=== PATIENT | female | born 1970 | race Hispanic/Latino ===

== ENCOUNTER 2019-02-09 10:50 | Emergency (ER) | payer OTHER, SELFPAY ==
--- NOTE | 2019-02-09 11:50 | RAD REPORT ---
EXAM DESCRIPTION: US - Extremity Venous Uni Ltd - 02/09/2019 11:44 am CLINICAL HISTORY: Left leg pain and swelling COMPARISON: None. TECHNIQUE: Real-time sonographic evaluation of the left lower extremity deep venous system was perfo rmed. FINDINGS: Normal compressibility, flow augmentation, phasic flow and spontaneous flow are identified in the left lower extremity common femoral, superficial femoral, popliteal and posterior tibial vein s. No intraluminal filling defects seen. IMPRESSION: No DVT in the left lower extremity.
--- NOTE | 2019-02-09 12:16 | EDPHYS ---
Physician Documentation [facility] Name: Ngozi Silverman Age: 48 yrs Sex: Female : 1970 Arrival Date: 02/09/2019 Time: 10:54 Bed 20 Private MD: None, None ED Physician Theodore Willard HPI: 02/09 12:09 This 48 yrs old Female presents to ER via Ambulatory with complaints of Leg gs Swelling. 12:09 The patient presents with pain, swelling. The complaints affect the left harrison and gs anterior aspect of left ankle. Onset: The symptoms/episode began/occurred 2 week(s) ago, and became worse and became persistent. Modifying factors: the symptoms are aggravated by movement. Associated signs and symptoms: Pertinent positives: calf tenderness, Pertinent negatives fever, vomiting. Severity of symptoms: At their worst the symptoms were moderate, in the emergency department the symptoms are unchanged. The patient has not experienced similar symptoms in the past. 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 - Social history:: Smoking status: . - Ebola Screening: : Patient denies travel to an Ebola-affected area in the 21 days before illness onset. ROS: 12:09 All other systems are negative. gs Exam: 12:09 Head/Face: Normocephalic, atraumatic. Eyes: Pupils equal round and reactive to light, gs extra-ocular motions intact. Lids and lashes normal. Conjunctiva and sclera are non-icteric and not injected. Cornea within normal limits. Periorbital areas with no swelling, redness, or edema. ENT: Nares patent. No nasal discharge, no septal abnormalities noted. Tympanic membranes are normal and external auditory canals are clear. Oropharynx with no redness, swelling, or masses, exudates, or evidence of obstruction, uvula midline. Mucous membranes moist. Neck: Trachea midline, no thyromegaly or masses palpated, and no cervical lymphadenopathy. Supple, full range of motion without nuchal rigidity, or vertebral point tenderness. No Meningismus. Chest/axilla: Normal chest wall appearance and motion. Nontender with no deformity. No lesions are appreciated. Cardiovascular: Regular rate and rhythm with a normal S1 and S2. No gallops, murmurs, or rubs. Normal PMI, no JVD. No pulse deficits. Respiratory: Lungs have equal breath sounds bilaterally, clear to auscultation and percussion. No rales, rhonchi or wheezes noted. No increased work of breathing, no retractions or nasal flaring. Abdomen/GI: Soft, non-tender, with normal bowel sounds. No distension or tympany. No guarding or rebound. No evidence of tenderness throughout. Back: No spinal tenderness. No costovertebral tenderness. Full range of motion. Neuro: Awake and alert, GCS 15, oriented to person, place, time, and situation. Cranial nerves II-XII grossly intact. Motor strength 5/5 in all extremities. Sensory grossly intact. Cerebellar exam normal. Normal gait. 12:09 Constitutional: The patient appears alert, awake. 12:09 Musculoskeletal/extremity: Pulses: are normal with no appreciated deficits, Edema, 2+ to the left midcalf and left ankle is noted, Sensation intact. 12:09 Skin: Appearance: Color: erythematous. Vital Signs: 11:12 BP 167 / 111; Pulse 87; Resp 17; Pulse Ox 98% on R/A; tw2 11:17 Temp 98.0(O); tw2 11:17 BP 145 / 99; Pulse 80; Resp 16; Pulse Ox 100% ; Weight 103.42 kg; Height 5 ft. 3 in. iw (160.02 cm); Pain 8/10; 12:03 BP 149 / 103; Pulse 89; Resp 17; Pulse Ox 98% on R/A; tw2 11:17 Body Mass Index 40.39 (103.42 kg, 160.02 cm) iw MDM: 11:15 Patient medically screened. gs 12:09 Differential diagnosis: cellulitis,dvt,vasculitis. Data reviewed: vital signs, nurses gs notes. Counseling: I had a detailed discussion with the patient and/or guardian regarding: the historical points, exam findings, and any diagnostic results supporting the discharge/admit diagnosis, radiology results, the need for outpatient follow up. Response to treatment: There is no appreciated change of the patient's symptoms at this time. 02/09 11:15 Order name: US Extremity Venous Unilateral Ltd; Complete Time: 12:09 Administered Medications: No medications were administered Disposition: 02/09/19 12:14 Discharged to Home. Impression: Cellulitis of left lower limb - leg. - Condition is Stable. - Discharge Instructions: Cellulitis, Adult. - Prescriptions for Keflex 500 mg Oral Capsule - take 1 capsule by ORAL route every 12 hours for 10 days; 20 capsule. Prednisone 20 mg Oral Tablet - take 1 tablet by ORAL route once daily for 5 days; 5 tablet. - Work release form, Medication Reconciliation Form, Thank You Letter, Antibiotic Education, Prescription Opioid Use form. - Follow up: Private Physician; When: 2 - 3 days; Reason: Re-evaluation by your physician. Signatures: Dispatcher [employer] Melyssa Toledo RN RN Jeannine Perdue RN RN [facility] Theodore Willard MD MD Corrections: (The following items were deleted from the chart) 12:03 11:23 Home Meds: Lisinopril Oral; [facility] 12:03 11:23 Home Meds: amlodipine oral; [facility] 12:03 11:23 Home Meds: cetirizine oral oral; [facility] 12:26 12:14 02/09/2019 12:14 Discharged to Home. Impression: Cellulitis of left lower limb - tw2 leg. Condition is Stable. Forms are Medication Reconciliation Form, Thank You Letter, Antibiotic Education, Prescription Opioid Use. Follow up: Private Physician; When: 2 - 3 days; Reason: Re-evaluation by your physician. gs
--- NOTE | 2019-02-09 12:16 | ER ---
Nurse's Notes [facility] Name: Ngozi Silverman Age: 48 yrs Sex: Female : 1970 Arrival Date: 02/09/2019 Time: 10:54 Bed 20 Private MD: None, None Diagnosis: Cellulitis of left lower limb-leg Presentation: 02/09 11:09 Presenting complaint: Patient states: left leg swelling X1 month, worse over past 1-2 iw weeks. Transition of care: patient was not received from another setting of care. Onset of symptoms was December 2018. Risk Assessment: Do you want to hurt yourself or someone else? Patient reports no desire to harm self or others. Initial Sepsis Screen: Does the patient meet any 2 criteria? No. Patient's initial sepsis screen is negative. Does the patient have a suspected source of infection? No. Patient's initial sepsis screen is negative. Care prior to arrival: None. 11:09 Method Of Arrival: Ambulatory iw 11:09 Acuity: YOLI 3 iw Triage Assessment: 11:13 General: Appears in no apparent distress. obese, well groomed, Behavior is calm, tw2 cooperative, appropriate for age. Pain: Denies pain. 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 - Social history:: Smoking status: . - Ebola Screening: : Patient denies travel to an Ebola-affected area in the 21 days before illness onset. Screenin:13 Abuse screen: Denies threats or abuse. Nutritional screening: No deficits noted. tw2 Tuberculosis screening: No symptoms or risk factors identified. Fall Risk None identified. Assessment: 11:19 General: Appears in no apparent distress. obese, well groomed, Behavior is calm, tw2 cooperative, appropriate for age. Pain: Complains of pain in left leg. Neuro: Level of Consciousness is awake, alert, obeys commands, Oriented to person, place, time, situation. Cardiovascular: Heart tones S1 S2 Patient's skin is warm and dry. Respiratory: Airway is patent Respiratory effort is even, unlabored, Respiratory pattern is regular, symmetrical, Breath sounds are clear bilaterally. GI: No signs and/or symptoms were reported involving the gastrointestinal system. Abdomen is round non-distended, obese, Bowel sounds present X 4 quads. : No signs and/or symptoms were reported regarding the genitourinary system. EENT: No signs and/or symptoms were reported regarding the EENT system. Derm: redness and swelling noted to left LE. Musculoskeletal: Circulation, motion, and sensation intact. Range of motion: intact in all extremities. 12:03 Reassessment: Patient appears in no apparent distress at this time. No changes from tw2 previously documented assessment. Patient and/or family updated on plan of care and expected duration. Pain level reassessed. Patient is alert, oriented x 3, equal unlabored respirations, skin warm/dry/pink. 12:25 Reassessment: Patient appears in no apparent distress at this time. No changes from tw2 previously documented assessment. Patient and/or family updated on plan of care and expected duration. Pain level reassessed. Patient is alert, oriented x 3, equal unlabored respirations, skin warm/dry/pink. Vital Signs: 11:12 BP 167 / 111; Pulse 87; Resp 17; Pulse Ox 98% on R/A; tw2 11:17 Temp 98.0(O); tw2 11:17 BP 145 / 99; Pulse 80; Resp 16; Pulse Ox 100% ; Weight 103.42 kg; Height 5 ft. 3 in. iw (160.02 cm); Pain 8/10; 12:03 BP 149 / 103; Pulse 89; Resp 17; Pulse Ox 98% on R/A; tw2 11:17 Body Mass Index 40.39 (103.42 kg, 160.02 cm) iw ED Course: 10:54 Patient arrived in ED. mr 10:54 None, None is Private Physician. mr 11:05 Theodore Willard MD is Attending Physician. gs 11:05 Bed in low position. Call light in reach. Pulse ox on. NIBP on. tw2 11:10 Triage completed. iw 11:12 Jeannine Perdue, RN is Primary Nurse. tw2 11:12 Arm band placed on. tw2 11:45 US Extremity Venous Unilateral Ltd In Process Unspecified. EDMS 12:25 No provider procedures requiring assistance completed. Patient did not have IV access tw2 during this emergency room visit. Administered Medications: No medications were administered Outcome: 12:14 Discharge ordered by . gs 12:25 Discharged to home ambulatory. tw2 12:25 Condition: stable 12:25 Discharge instructions given to patient, Instructed on discharge instructions, follow up and referral plans. medication usage, Demonstrated understanding of instructions, follow-up care, medications, Prescriptions given X 2. 12:26 Patient left the ED. tw2 Signatures: Dispatcher [employer] EDDE Grace Serrano Irene RN RN Jeannine Perdue, RN RN tw2 Theodore Willard MD MD Corrections: (The following items were deleted from the chart) 11:23 11:17 BP 145 / 99; Pulse 80bpm; tw2 iw 12:03 11:23 Home Meds: Lisinopril Oral; tw 12:03 11:23 Home Meds: amlodipine oral; iw tw 12:03 11:23 Home Meds: cetirizine oral oral; tw2
== END 2019-02-09 12:26 | disposition home or self-care (01) ==
LOC: ER 10:50
DX: L03.116 Cellulitis of left lower limb (principal); I10 Essential (primary) hypertension; K75.4 Autoimmune hepatitis
CPT/HCPCS: 93971; 99283

== ENCOUNTER 2019-05-18 23:01 | Emergency (ER) | payer SELFPAY ==
--- OUTSIDE RECORDS SUMMARY | 2019-05-18 23:02 | XMS REPORT ---
:1970 [facility] Address [address] [place] [address] Dr. Brown [address] [place] [id number] Care Team Providers Name Role Phone Unavailable Unavailable Unavailable Problems This patient has no known problems. Allergies, Adverse Reactions, Alerts This patient has no known allergies or adverse reactions. Medications This patient has no known medications.
[2019-05-18] MEDS ORDERED: FUROSEMIDE 40 MG/4 ML VIAL ONE (23:39)
[2019-05-18] MEDS ORDERED: LABETALOL 20 MG/4ML SYRINGE IV ONE (23:39)
[2019-05-19 00:04] LABS: Absolute Lymphocytes (CBC) 2.4 K/uL (0.7-4.9); Basophils % 1.1 % (0-1.3); Hematocrit 33.8 % (36.0-45.0); Lymphocytes % 30.7 % (15.3-44.8); MPV 9.3 fL (7.6-11.3); RBC Red Blood Cell Count 3.77 M/uL (3.86-4.86)
[2019-05-19 00:07] LABS: Potassium 3.2 mmol/L (3.5-5.1)
--- NOTE | 2019-05-19 00:26 | ER ---
Nurse's Notes [facility] Name: Ngozi Silverman Age: 49 yrs Sex: Female : 1970 Arrival Date: 05/18/2019 Time: 23:01 Bed 20 Private MD: Diagnosis: Uncontrolled hypertension. Non-compliance Presentation: 05/18 23:05 Presenting complaint: Patient states: States she has been feeling bad, checks BP daily lp1 and was high at home; Has been out of meds for 2-3 weeks due to finances; States supposed to be taking Amlodipine and Lisinopril; swelling to feet for about 3 months. Transition of care: patient was not received from another setting of care. Onset of symptoms was May 18, 2019. Risk Assessment: Do you want to hurt yourself or someone else? Patient reports no desire to harm self or others. Initial Sepsis Screen: Does the patient meet any 2 criteria? No. Patient's initial sepsis screen is negative. Does the patient have a suspected source of infection? No. Patient's initial sepsis screen is negative. Care prior to arrival: None. 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 - Social history:: Smoking status: Patient/guardian denies using tobacco. - Ebola Screening: : No symptoms or risks identified at this time. Screenin:10 Abuse screen: Denies threats or abuse. Denies injuries from another. Nutritional lp1 screening: No deficits noted. Tuberculosis screening: No symptoms or risk factors identified. 23:30 Fall Risk None identified. wh Assessment: 23:30 General: Appears in no apparent distress. Behavior is calm, cooperative, appropriate wh for age. Pain: Denies pain. Neuro: Level of Consciousness is awake, alert, obeys commands, Oriented to person, place, time, situation, Appropriate for age. Cardiovascular: Heart tones S1 S2 Edema is 2+ to left ankle and right ankle. Respiratory: Airway is patent Respiratory effort is even, unlabored, Respiratory pattern is regular, symmetrical, Breath sounds are clear bilaterally. GI: Abdomen is flat, non-distended. : No signs and/or symptoms were reported regarding the genitourinary system. EENT: No signs and/or symptoms were reported regarding the EENT system. Derm: Skin is intact, is healthy with good turgor, Skin is pink, warm \T\ dry. normal. Musculoskeletal: Circulation, motion, and sensation intact. 05/19 00:45 Reassessment: Patient appears in no apparent distress at this time. No changes from previously documented assessment. Patient and/or family updated on plan of care and expected duration. Pain level reassessed. Patient is alert, oriented x 3, equal unlabored respirations, skin warm/dry/pink. Patient denies pain at this time. Vital Signs: 05/18 23:08 BP 180 / 119; Pulse 91; Resp 20; Temp 99(O); Pulse Ox 99% on R/A; Weight 117.93 kg; lp1 Height 5 ft. 3 in. (160.02 cm); Pain 8/10; 23:45 BP 164 / 120; Pulse 88; Resp 18; Pulse Ox 97% on R/A; 05/19 00:45 BP 146 / 99; Pulse 78; Resp 18; Pulse Ox 99% on R/A; 05/18 23:08 Body Mass Index 46.06 (117.93 kg, 160.02 cm) lp1 ED Course: 05/18 23:01 Patient arrived in ED. cl3 23:06 Triage completed. lp1 23:06 Arm band placed on. lp1 23:11 Tyrese Salvador MD is Attending Physician. pkl 23:24 Sharita Tripp is Primary Nurse. 23:30 Patient has correct armband on for positive identification. Placed in gown. Bed in low wh position. Call light in reach. Side rails up X 1. Pulse ox on. NIBP on. 23:40 Inserted saline lock: 20 gauge in right antecubital area, using aseptic technique. Blood collected. 23:43 XRAY CXR (1 view) In Process Unspecified. EDMS 05/19 00:46 No provider procedures requiring assistance completed. IV discontinued, intact, bleeding controlled, No redness/swelling at site. Administered Medications: 05/18 23:45 Drug: Trandate 20 mg Route: IVP; Site: right antecubital; 05/19 00:47 Follow up: Response: No adverse reaction; Blood pressure is lowered 05/18 23:50 Drug: Lasix 80 mg Route: IVP; Site: right antecubital; 05/19 00:47 Follow up: Response: No adverse reaction 00:32 Drug: K-Dur 40 mEq Route: PO; 00:46 Follow up: Response: No adverse reaction Output: 00:45 Urine: 700ml (Voided); Total: 700ml. Outcome: 00:25 Discharge ordered by . pkreyna 00:46 Discharged to home ambulatory, with family. 00:46 Condition: stable 00:46 Discharge instructions given to patient, family, Instructed on discharge instructions, follow up and referral plans. medication usage, POC HTN Demonstrated understanding of instructions, follow-up care, medications, POC Prescriptions given X 2. 00:47 Patient left the ED. Signatures: Dispatcher [employer] EDMS Tyrese Salvador MD MD pkl Pena, Laura, RN RN lp1 Qasim, Sharita George Guzman cl3 Corrections: (The following items were deleted from the chart) 05/18 23:06 23:05 Presenting complaint: Patient states: States she has been feeling bad, checks BP lp1 daily and was high at home; Has been out of meds for 2-3 weeks due to finances; States supposed to be taking Amlodipine and Lisinopril lp1
--- NOTE | 2019-05-19 00:26 | EDPHYS ---
Physician Documentation [facility] Name: Ngozi Silverman Age: 49 yrs Sex: Female : 1970 Arrival Date: 05/18/2019 Time: 23:01 Bed 20 Private MD: ED Physician Tyrese Salvador HPI: 05/18 23:39 This 49 yrs old Female presents to ER via Ambulatory with complaints of High pkl Blood Pressure. 23:39 Onset: The symptoms/episode began/occurred 3 week(s) ago. Out of medications for 3 pkl weeks. 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 - Social history:: Smoking status: Patient/guardian denies using tobacco. - Ebola Screening: : No symptoms or risks identified at this time. ROS: 23:39 Eyes: Negative for injury, pain, redness, and discharge, ENT: Negative for injury, pkl pain, and discharge, Neck: Negative for injury, pain, and swelling, Cardiovascular: Negative for chest pain, palpitations, and edema, Respiratory: Negative for shortness of breath, cough, wheezing, and pleuritic chest pain, Abdomen/GI: Negative for abdominal pain, nausea, vomiting, diarrhea, and constipation, Back: Negative for injury and pain, : Negative for injury, bleeding, discharge, and swelling, Skin: Negative for injury, rash, and discoloration. 23:39 MS/extremity: Positive for swelling, of the both legs. 23:39 Skin: Negative for acute changes. 23:39 Neuro: Negative for altered mental status. Exam: 23:39 Head/Face: Normocephalic, atraumatic. Eyes: Pupils equal round and reactive to light, pkl extra-ocular motions intact. Lids and lashes normal. Conjunctiva and sclera are non-icteric and not injected. Cornea within normal limits. Periorbital areas with no swelling, redness, or edema. ENT: Nares patent. No nasal discharge, no septal abnormalities noted. Tympanic membranes are normal and external auditory canals are clear. Oropharynx with no redness, swelling, or masses, exudates, or evidence of obstruction, uvula midline. Mucous membranes moist. Neck: Trachea midline, no thyromegaly or masses palpated, and no cervical lymphadenopathy. Supple, full range of motion without nuchal rigidity, or vertebral point tenderness. No Meningismus. Chest/axilla: Normal chest wall appearance and motion. Nontender with no deformity. No lesions are appreciated. Cardiovascular: Regular rate and rhythm with a normal S1 and S2. No gallops, murmurs, or rubs. Normal PMI, no JVD. No pulse deficits. Respiratory: Lungs have equal breath sounds bilaterally, clear to auscultation and percussion. No rales, rhonchi or wheezes noted. No increased work of breathing, no retractions or nasal flaring. Abdomen/GI: Soft, non-tender, with normal bowel sounds. No distension or tympany. No guarding or rebound. No evidence of tenderness throughout. Back: No spinal tenderness. No costovertebral tenderness. Full range of motion. Skin: Warm, dry with normal turgor. Normal color with no rashes, no lesions, and no evidence of cellulitis. Neuro: Awake and alert, GCS 15, oriented to person, place, time, and situation. Cranial nerves II-XII grossly intact. Motor strength 5/5 in all extremities. Sensory grossly intact. Cerebellar exam normal. Normal gait. 23:39 Musculoskeletal/extremity: Extremities: grossly normal except: noted in the both legs: Vital Signs: 23:08 BP 180 / 119; Pulse 91; Resp 20; Temp 99(O); Pulse Ox 99% on R/A; Weight 117.93 kg; lp1 Height 5 ft. 3 in. (160.02 cm); Pain 8/10; 23:45 BP 164 / 120; Pulse 88; Resp 18; Pulse Ox 97% on R/A; wh 05/19 00:45 BP 146 / 99; Pulse 78; Resp 18; Pulse Ox 99% on R/A; wh 05/18 23:08 Body Mass Index 46.06 (117.93 kg, 160.02 cm) lp1 MDM: 05/18 23:11 Patient medically screened. pkl 05/19 00:22 Data reviewed: vital signs, nurses notes, lab test result(s), radiologic studies, plain pkl films. 05/18 23:21 Order name: CBC with Diff; Complete Time: 00:19 pkl 05/18 23:21 Order name: Chem 7; Complete Time: 00:19 pkl 05/18 23:21 Order name: XRAY CXR (1 view) pk 05/18 23:21 Order name: Saline Lock; Complete Time: 23:46 pkl Administered Medications: 05/18 23:45 Drug: Trandate 20 mg Route: IVP; Site: right antecubital; 05/19 00:47 Follow up: Response: No adverse reaction; Blood pressure is lowered 05/18 23:50 Drug: Lasix 80 mg Route: IVP; Site: right antecubital; 05/19 00:47 Follow up: Response: No adverse reaction 00:32 Drug: K-Dur 40 mEq Route: PO; 00:46 Follow up: Response: No adverse reaction Disposition: 05/19/19 00:25 Discharged to Home. Impression: Uncontrolled hypertension. Non-compliance. - Condition is Stable. - Prescriptions for Lisinopril- Hydrochlorothiazide 20-25 mg Oral Tablet - take 1 tablet by ORAL route once daily; 30 tablet. Carvedilol 12.5 mg Oral Tablet - take 1 tablet by ORAL route 2 times per day with food; 60 tablet. - Medication Reconciliation Form, Thank You Letter, Antibiotic Education, Prescription Opioid Use form. - Follow up: Private Physician; When: 1 week; Reason: Re-evaluation by your physician. - Problem is new. - Symptoms have improved. Signatures: Dispatcher [employer] EDMS Tyrese Salvador MD MD l Merry Bauer RN RN lp1 Sharita Tripp Corrections: (The following items were deleted from the chart) 00:47 00:25 05/19/2019 00:25 Discharged to Home. Impression: Uncontrolled hypertension. wh Non-compliance. Condition is Stable. Forms are Medication Reconciliation Form, Thank You Letter, Antibiotic Education, Prescription Opioid Use. Follow up: Private Physician; When: 1 week; Reason: Re-evaluation by your physician. Problem is new. Symptoms have improved. pkl
[2019-05-19] MEDS ORDERED: POTASSIUM 25 MEQ EFFERV TAB ONE (00:28)
[2019-05-19] MEDS ORDERED: POTASSIUM CL SA 10 MEQ TAB PO ONE (00:29)
[2019-05-19 02:51] VITALS: TEMP 99
[2019-05-19 02:53] VITALS: BP 146/99; O2SAT 99
--- NOTE | 2019-05-19 07:52 | RAD REPORT ---
EXAM DESCRIPTION: Kan Single View05/18/2019 11:42 pm CLINICAL HISTORY: Hypertension COMPARISON: none FINDINGS: The lungs appear clear of acute infiltrate. The heart is normal size IMPRESSION: No acute abnormalities displayed
== END 2019-05-19 00:47 | disposition home or self-care (01) ==
LOC: ER 23:01
DX: I10 Essential (primary) hypertension (principal); Z91.19 Patient's noncompliance with other medical treatment and regimen
CPT/HCPCS: 36415; 71045; 80048; 85025; 96374; 96375; 99284; J1940

== ENCOUNTER 2021-12-06 22:25 | Emergency (ER) | payer OTHER ==
--- OUTSIDE RECORDS SUMMARY | 2021-12-06 22:30 | XMS REPORT | Continuity of Care Document ---
:1970 Author Organization [facility] t Address [facility] [place] [address] Care Team Providers Name Role Phone Brie Sanchez NP Primary Care Physician Laura Attending Clinician Unavailable CHERYL MC Attending Clinician Unavailable CHERYL MC Attending Clinician Unavailable Jose Carlos TALLEY Attending Clinician Unavailable Visit, Nurse Attending Clinician Unavailable Zhao ARITA, N Attending Clinician Tamiko JHA Attending Clinician Unavailable Roly Cassidy DO Attending Clinician Eve CHURCHILL Attending Clinician Unavailable Biju Hanks Attending Clinician Biju REYNA Attending Clinician Unavailable Doctor Unassigned, Name Attending Clinician Unavailable Payers Payer Name Policy Type Policy Number Effective Date Expiration Date S ource OUT OF [facility] [id number] - [facility] [id number] [facility] [id number] 2021 00:00:00 [employer] ADV O [id number] 2020 EXCHANGE 00:00:00 Problems Condition Condition Condition Status Onset Resolution Last Treating Co mments Source Name Details Category Date Date Treatment Clinician Date Other Other Disease Active [facility] general general 9-17 ity of counseling counseling [place] and advice and advice 00 Me dical for for Branch contracept contracept jessica jessica management management Cervical Cervical Disease Active Overview: Un lady Papanicola Papanicola 03-09 Formattin ity of ou smear ou smear 00:00: g of this Kei as negative negative 00 note Medica l within within might be Branch last 12 last 12 different months months from the original. 2018 pap NIL neg HPV see note from 10/2018 with [facility] Morbid Morbid Disease Active Univers obesity obesity 9-17 ity of 00:00: [place] [facility] Hemorrhoid Hemorrhoid Disease Active U nivers s s 03-09 ity of 00:00: [place] [facility] Herpes Herpes Disease Active Univers simplex simplex 5-20 [place] of infection [place] 00[place] [facility] General General Disease Active [facility] counseling counseling 11-06 it y of for for 00:00: [place] prescripti prescripti 00 Me dical on of oral on of oral Br anch contracept contracept jinny jinny Vaginal Vaginal Disease Active Univers ulcer ulcer 5-17 ity of 00:00: [place] 00 [facility] 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 Uni vers of skull of skull 1-27 ity of 00:00: [place] [facility] Hyperlipid Hyperlipid Disease Active U cordelia emia emia 8-19 ity of 00:00: [place] [facility] Depression Depression Disease Active U cordelia 8-18 ity of 00:00: [place] [facility] Mild Mild Disease Active Univers intermitte intermitte 3-06 it y of nt asthma nt asthma 00:[place] Degenerati Degenerati Disease Active 2013-06 U nivuri on of on of 0-03 ity of interverte interverte 00:[place] bral disc, bral disc, 00 Me dical site site Branch unspecifie unspecifie d d 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 6-06 ity of 00:00: [place] 00 [facility] 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 5-06 ity of 00:00: [place] [facility] Fatty Fatty Disease Active Univers liver liver 5-06 ity of 00:00: [place] 00 [facility] HTN HTN Disease Active Univers (hypertens (hypertens 10-26 it y of ion) ion) 00:00: [place] [address] Medical Branch Morbid Morbid Disease Active Univers obesity obesity 10-26 ity of with BMI with BMI 00:00: [place] of of 00 Medical 40.0-44.9, 40.0-44.9, Br anch adult adult Need for Need for Disease Active Unive rs Tdap Tdap 10-26 ity of vaccinatio vaccinatio 00:00: [place] n [address] [place] [address] Branch Allergies, Adverse Reactions, Alerts Allergy Allergy Status Severity Reaction(s) Onset Inactive Treating Comm ents Source Name Type Date Date Clinician Predniso Propensi Active [facility] ne ty to 11-22 [facility] adverse 00:00: of reaction 00 Medicin s to e drug NO KNOWN Drug Active [facility] ALLERGIE Class ity of [facility] Social History Social Habit Start Date Stop Date Quantity Comments Source Exposure to Not sure [facility] SARS-CoV-2 [facility] [place] [facility] (event) Branch Alcohol intake 2021-05-15 2021-05-15 Current drinker [facility] of 00:00:00 00:00:00 of alcohol Medicine (finding) Tobacco use and 2020-11-22 2020-11-22 Smokeless tobacco [facility] of exposure 00:00:00 00:00:00 non-user Medicine Alcohol Comment 2018-11-06 2018-11-06 socially Universit y of 00:00:00 00:00:00 [facility] Sex [birth year] At [birth year] Universit y of 00:00:00 00:00:00 [facility] Smoking Status Start Date Stop Date Source Never smoker [facility] Medications Ordered Filled Start Stop Current Ordering Indication Dosage Frequency Signature Comments Components Source Medication Medication Date Date Medication? Clinician (SIG) Name Name PANTOPRAZOL 2020-06 Yes 40mg Take 40 mg [facility] E SODIUM OR 07-15 by mouth. Col lege 14:46: of 36 Medicin e Norgestim-E 2020-06 Yes Take by Patricio wilson Estrad 07-15 mouth. [place] Triphasic 14:46: of (ORTHO 36 Medicin TRI-CYCLEN e LO OR) LISINOPRIL- 2020-06 Yes Take by [facility] HYDROCHLORO 1-23 mouth. Colleg e THIAZIDE OR 14:44: of 15 Medicin e amlodipine Yes Take by Uni vers besylate 9-17 mouth. ity of (AMLODIPINE 15:52: [facility]) Medical Branch LISINOPRIL Yes Take by Uni vers ORAL 9-17 mouth. ity of 15:52: [place] [address] Medical Branch amlodipine Yes Take by Uni vers besylate 9-17 mouth. ity of (AMLODIPINE 15:52: [facility]) Medical Branch LISINOPRIL Yes Take by Uni vers ORAL 9-17 mouth. ity of 15:52: [place] [address] Medical Branch amlodipine Yes Take by Uni vers besylate 9-17 mouth. ity of (AMLODIPINE 15:52: [facility]) Medical Branch LISINOPRIL Yes Take by Uni vers ORAL 9-17 mouth. ity of 15:52: [place] [address] Medical Branch amlodipine Yes Take by Uni vers besylate 9-17 mouth. ity of (AMLODIPINE 15:52: [facility]) Medical Branch LISINOPRIL Yes Take by Uni vers ORAL 9-17 mouth. ity of 15:52: [place] [address] Medical Branch amlodipine Yes Take by Uni vers besylate 9-17 mouth. ity of (AMLODIPINE 15:52: [facility]) Medical Branch LISINOPRIL Yes Take by Uni vers ORAL 9-17 mouth. ity of 15:52: [place] [address] Medical Branch amlodipine Yes Take by Uni vers besylate 9-17 mouth. ity of (AMLODIPINE 15:52: [facility]) Medical Branch LISINOPRIL Yes Take by Uni vers ORAL 9-17 mouth. ity of 15:52: [place] [address] Medical Branch amlodipine Yes Take by Uni vers besylate 9-17 mouth. ity of (AMLODIPINE 15:52: [facility]) Medical Branch LISINOPRIL Yes Take by Uni vers ORAL 9-17 mouth. ity of 15:52: [place] [address] Medical Branch norethindro Yes [id number] 1{tbl} Take 1 Univers ne 0.35 mg 9-17 tablet by ity of tablet 00:00: mouth [place] 00 daily. Medical Branch benzocaine- 2020-0 Yes [id number] Apply to Univers menthol, 9-17 area(s) as ity o f DERMOPLAST, 00:00: needed for [place] (DERMOPLAST 00 Pain or Medic al , WITH Itching. Branch MENTHOL,) 20-0.5 % topical spray norethindro 2020-0 Yes [id number] 1{tbl} Take 1 Univers ne 0.35 mg 9-17 tablet by ity of tablet 00:00: mouth [place] 00 daily. Medical Branch benzocaine- 2020-0 Yes [id number] Apply to Univers menthol, 9-17 area(s) as ity o f DERMOPLAST, 00:00: needed for [place] (DERMOPLAST 00 Pain or Medic al , WITH Itching. Branch MENTHOL,) 20-0.5 % topical spray norethindro 2020-0 Yes [id number] 1{tbl} Take 1 Univers ne 0.35 mg 9-17 tablet by ity of tablet 00:00: mouth [place] 00 daily. Medical Branch benzocaine- 2020-0 Yes [id number] Apply to Univers menthol, 9-17 area(s) as ity o f DERMOPLAST, 00:00: needed for [place] (DERMOPLAST 00 Pain or Medic al , WITH Itching. Branch MENTHOL,) 20-0.5 % topical spray norethindro 2020-0 Yes [id number] 1{tbl} Take 1 Univers ne 0.35 mg 9-17 tablet by ity of tablet 00:00: mouth [place] 00 daily. Medical Branch benzocaine- 2020-0 Yes [id number] Apply to Univers menthol, 9-17 area(s) as ity o f DERMOPLAST, 00:00: needed for [place] (DERMOPLAST 00 Pain or Medic al , WITH Itching. Branch MENTHOL,) 20-0.5 % topical spray norethindro 2020-0 Yes [id number] 1{tbl} Take 1 Univers ne 0.35 mg 9-17 tablet by ity of tablet 00:00: mouth [place] 00 daily. Medical Branch benzocaine- 2020-0 Yes [id number] Apply to Univers menthol, 9-17 area(s) as ity o f DERMOPLAST, 00:00: needed for [place] (DERMOPLAST 00 Pain or Medic al , WITH Itching. Branch MENTHOL,) 20-0.5 % topical spray norethindro 2020-0 Yes [id number] 1{tbl} Take 1 Univers ne 0.35 mg 9-17 tablet by ity of tablet 00:00: mouth [place] 00 daily. Medical Branch benzocaine- 2020-0 [id number] [facility] area[facility] as ity o f DERMOPLAST, 00:00: needed for [place] (DERMOPLAST 00 Pain or Medic al , WITH Itching. Branch MENTHOL,) 20-0.5 % topical spray norethindro 2020-0 Yes [id number] 1{tbl} Take 1 Univers ne 0.35 mg 9-17 tablet by ity of tablet 00:00: mouth [place] 00 daily. Medical Branch benzocaine- 2020-0 Yes [id number] Apply to [facility], 9-17 area(s) as ity o f DERMOPLAST, 00:00: needed for [place] (DERMOPLAST 00 Pain or Medic al , WITH Itching. Branch MENTHOL,) 20-0.5 % topical spray LISINOPRIL 2018-06 Yes Take by Uni vers ORAL 0-21 mouth. ity of 21:36: [address] LISINOPRIL 2018-06 Yes Take by Uni vers ORAL 0-21 mouth. ity of 21:36: [address] LISINOPRIL 2018-06 Yes Take by Uni vers ORAL 0-21 mouth. ity of 21:36: [address] LISINOPRIL 2018-06 Yes Take by Uni vers ORAL 0-21 mouth. ity of 21:36: [address] LISINOPRIL 2018-06 Yes Take by Uni vers ORAL 0-21 mouth. ity of 21:36: [address] amlodipine 2018-06 Yes Take by Uni vers besylate 0-21 mouth. ity of (AMLODIPINE 21:35: [place] ORAL) [address] [place] [address] amlodipine 2018-06 Yes Take by Uni vers besylate 0-21 mouth. ity of (AMLODIPINE 21:35: [place] ORAL) [address] [place] [address] amlodipine 2018-06 Yes Take by Uni vers besylate 0-21 mouth. ity of (AMLODIPINE 21:35: [place] ORAL) [address] [place] [address] amlodipine 2018-06 Yes Take by Uni vers besylate 0-21 mouth. ity of (AMLODIPINE 21:35: [place] ORAL) 26 [facility] amlodipine 2018-06 Yes Take by Uni vers besylate 0-21 mouth. ity of (AMLODIPINE 21:35: [place] ORAL) [facility] [id number] .35mg Take 1 Univers ne 0.35 mg 0-21 tablet by ity of tablet 00:00: mouth [place] 00 daily. [facility] 2018-06 Yes [id number] .35mg Take 1 Univers ne 0.35 mg 0-21 tablet by ity of tablet 00:00: mouth [place] 00 daily. [facility] 2018-06 Yes [id number] .35mg Take 1 Univers ne 0.35 mg 0-21 tablet by ity of tablet 00:00: mouth [place] 00 daily. [facility] 2018-06 Yes [id number] .35mg Take 1 Univers ne 0.35 mg 0-21 tablet by ity of tablet 00:00: mouth [place] 00 daily. [facility] 2018-06 Yes [id number] .35mg Take 1 Univers ne 0.35 mg 0-21 tablet by ity of tablet 00:00: mouth [place] 00 daily. [facility] 2018-06 Yes [id number] .35mg Take 1 Univers ne 0.35 mg 0-21 tablet by ity of tablet 00:00: mouth [place] 00 daily. [facility] 2018-06 Yes [id number] .35mg Take 1 Univers ne 0.35 mg 0-21 tablet by ity of tablet 00:00: mouth [place] 00 daily. [facility] 2018-06 Yes [id number] .35mg Take 1 Univers ne 0.35 mg 0-21 tablet by ity of tablet 00:00: mouth [place] 00 daily. [facility] 2018-06 Yes [id number] .35mg Take 1 Univers ne 0.35 mg 0-21 tablet by ity of tablet 00:00: mouth [place] 00 daily. [facility] 2018-06 Yes [id number] .35mg Take 1 Univers ne 0.35 mg 0-21 tablet by ity of tablet 00:00: mouth [place] 00 daily. [facility] 2018-06 Yes [id number] .35mg Take 1 Univers ne 0.35 mg 0-21 tablet by ity of tablet 00:00: mouth daily. Medical Branch norethindro 2019-1 Yes [id number] .35mg Take 1 Univers ne 0.35 mg 0-21 tablet by ity of tablet 00:00: mouth daily. Medical Branch albuterol 2017-0 Yes 2{puff} Inhale 2 U nivers (PROVENTIL 8-18 Puffs. ity of HFA) 90 00:00: [place] mcg/actuati 00 Medical on inhaler Branch albuterol 2017-0 Yes 2{puff} Inhale 2 U nivers (PROVENTIL 8-18 Puffs. ity of HFA) 90 00:00: [place] mcg/actuati 00 Medical on inhaler Branch albuterol 2017-0 Yes 2{puff} Inhale 2 U nivers (PROVENTIL 8-18 Puffs. ity of HFA) 90 00:00: [place] mcg/actuati 00 Medical on inhaler Branch albuterol 2017-0 Yes 2{puff} Inhale 2 U nivers (PROVENTIL 8-18 Puffs. ity of HFA) 90 00:00: [place] mcg/actuati 00 Medical on inhaler Branch albuterol 2017-0 Yes 2{puff} Inhale 2 U nivers (PROVENTIL 8-18 Puffs. ity of HFA) 90 00:00: [place] mcg/actuati 00 Medical on inhaler Branch albuterol 2017-0 Yes 2{puff} Inhale 2 U nivers (PROVENTIL 8-18 Puffs. ity of HFA) 90 00:00: [place] mcg/actuati 00 Medical on inhaler Branch albuterol 2017-0 Yes 2{puff} Inhale 2 U nivers (PROVENTIL 8-18 Puffs. ity of HFA) 90 00:00: [place] mcg/actuati 00 Medical on inhaler Branch albuterol 2017-0 Yes 2{puff} Inhale 2 U nivers (PROVENTIL 8-18 Puffs. ity of HFA) 90 00:00: [place] mcg/actuati 00 Medical on inhaler Branch albuterol 2017-0 Yes 2{puff} Inhale 2 U nivers (PROVENTIL 8-18 Puffs. ity of HFA) 90 00:00: [place] mcg/actuati 00 Medical on inhaler Branch albuterol 2017-0 Yes 2{puff} Inhale 2 U nivers (PROVENTIL 8-18 Puffs. ity of HFA) 90 00:00: [place] mcg/actuati 00 Medical on inhaler Branch albuterol 2017-0 Yes 2{puff} Inhale 2 U nivers (PROVENTIL 8-18 Puffs. ity of HFA) 90 00:00: [place] mcg/actuati 00 Medical on inhaler Branch albuterol 2017-0 Yes 2{puff} Inhale 2 U nivers (PROVENTIL 8-18 Puffs. ity of HFA) 90 00:00: [place] mcg/actuati 00 Medical on inhaler Branch Immunizations Ordered Filled Immunization Date Status Comments [facility] e Immunization Name Name Influenza Virus 2018-04-02 Completed Universit y of Vaccine 00:00:00 [facility] Influenza Virus 2018-04-02 Completed Universit y of Vaccine 00:00:00 [facility] Influenza Virus 2018-04-02 Completed Universit y of Vaccine 00:00:00 [facility] Influenza Virus 2018-04-02 Completed Universit y of Vaccine 00:00:00 [facility] Influenza Virus 2018-04-02 Completed Universit y of Vaccine 00:00:00 [facility] Influenza Virus 2018-04-02 Completed Universit y of Vaccine 00:00:00 [facility] Influenza Virus 2018-04-02 Completed Universit y of Vaccine 00:00:00 [facility] Influenza Virus 2018-04-02 Completed Universit y of Vaccine 00:00:00 [facility] Influenza Virus 2018-04-02 Completed Universit y of Vaccine 00:00:00 [facility] Influenza Virus 2018-04-02 Completed Universit y of Vaccine 00:00:00 [facility] Influenza Virus 2018-04-02 Completed Universit y of Vaccine 00:00:00 [facility] Influenza Virus 2018-04-02 Completed Universit y of Vaccine 00:00:00 [facility] Influenza Virus 2017-07-16 Completed Universit y of Vaccine (3+ yrs) 00:00:00 [facility] Influenza Virus 2017-07-16 Completed Universit y of Vaccine (3+ yrs) 00:00:00 [facility] Influenza Virus 2017-07-16 Completed Universit y of Vaccine (3+ yrs) 00:00:00 [facility] Influenza Virus 2017-07-16 Completed Universit y of Vaccine (3+ yrs) 00:00:00 [facility] Branch Influenza Virus 2017-07-16 Completed Universit y of Vaccine (3+ yrs) 00:00:00 [facility] Branch Influenza Virus 2017-07-16 Completed Universit y of Vaccine (3+ yrs) 00:00:00 [facility] [place] [facility] Influenza Virus 2017-07-16 Completed Universit y of Vaccine (3+ yrs) 00:00:00 [facility] [place] [facility] Influenza Virus 2017-07-16 Completed Universit y of Vaccine (3+ yrs) 00:00:00 [facility] Branch Influenza Virus 2017-07-16 Completed Universit y of Vaccine (3+ yrs) 00:00:00 [facility] [place] [facility] Influenza Virus 2017-07-16 Completed Universit y of Vaccine (3+ yrs) 00:00:00 [facility] [place] [facility] Influenza Virus 2017-07-16 Completed Universit y of Vaccine (3+ yrs) 00:00:00 [facility] [place] [facility] Influenza Virus 2017-07-16 Completed Universit y of Vaccine (3+ yrs) 00:00:00 [facility] Branch HEP B, Adult Dosage 2015-02-07 Completed Unive rsity of 00:00:00 [place] [facility] HEP B, Adult Dosage 2015-02-07 Completed Unive rsity of 00:00:00 [place] [facility] HEP B, Adult Dosage 2015-02-07 Completed Unive rsity of 00:00:00 [facility] [place] [facility] Branch HEP B, Adult Dosage 2015-02-07 Completed Unive rsity of 00:00:00 [place] [facility] HEP B, Adult Dosage 2015-02-07 Completed Unive rsity of 00:00:00 [place] [facility] HEP B, Adult Dosage 2015-02-07 Completed Unive rsity of 00:00:00 [place] [facility] HEP B, Adult Dosage 2015-02-07 Completed Unive rsity of 00:00:00 [place] [facility] HEP B, Adult Dosage 2015-02-07 Completed Unive rsity of 00:00:00 [place] [facility] HEP B, Adult Dosage 2015-02-07 Completed Unive rsity of 00:00:00 [place] [facility] HEP B, Adult Dosage 2015-02-07 Completed Unive rsity of 00:00:00 [place] [facility] HEP B, Adult Dosage 2015-02-07 Completed Unive rsity of 00:00:00 [facility] HEP B, Adult Dosage 2015-02-07 Completed Unive rsity of 00:00:00 [facility] Pneumococcal 2014-10-11 Completed University o f Polysaccharide, 00:00:00 [place] Med ical PPSV23 (PNEUMOVAX) Branch Pneumococcal 2014-10-11 Completed University o f Polysaccharide, 00:00:00 [place] Med ical PPSV23 (PNEUMOVAX) Branch Pneumococcal 2014-10-11 Completed University o f Polysaccharide, 00:00:00 [place] Med ical PPSV23 (PNEUMOVAX) Branch Pneumococcal 2014-10-11 Completed University o f Polysaccharide, 00:00:00 [place] Med ical PPSV23 (PNEUMOVAX) Branch Pneumococcal 2014-10-11 Completed University o f Polysaccharide, 00:00:00 [place] Med ical PPSV23 (PNEUMOVAX) Branch Pneumococcal 2014-10-11 Completed University o f Polysaccharide, 00:00:00 [place] Med ical PPSV23 (PNEUMOVAX) Branch Pneumococcal 2014-10-11 Completed University o f Polysaccharide, 00:00:00 [place] Med ical PPSV23 (PNEUMOVAX) Branch Pneumococcal 2014-10-11 Completed University o f Polysaccharide, 00:00:00 [place] Med ical PPSV23 (PNEUMOVAX) Branch Pneumococcal 2014-10-11 Completed University o f Polysaccharide, 00:00:00 [place] Med ical PPSV23 (PNEUMOVAX) Branch Pneumococcal 2014-10-11 Completed University o f Polysaccharide, 00:00:00 [place] Med ical PPSV23 (PNEUMOVAX) Branch Pneumococcal 2014-10-11 Completed University o f Polysaccharide, 00:00:00 [place] Med ical PPSV23 (PNEUMOVAX) Branch Pneumococcal 2014-10-11 Completed University o f Polysaccharide, 00:00:00 [place] [facility] PPSV23 (PNEUMOVAX) Branch TDAP 2008-11-23 Completed University of 00:00:00 [facility] TDAP 2008-11-23 Completed University of 00:00:00 [facility] TDAP 2008-11-23 Completed University of 00:00:00 [facility] TDAP 2008-11-23 Completed University of 00:00:00 [facility] TDAP 2008-11-23 Completed University of 00:00:00 [facility] TDAP 2008-11-23 Completed University of 00:00:00 [facility] TDAP 2008-11-23 Completed University of 00:00:00 [place] [facility] Tdap 2008-11-23 Completed University of 00:00:00 [place] [facility] Tdap 2008-11-23 Completed University of 00:00:00 [place] [facility] Tdap 2008-11-23 Completed University of 00:00:00 [place] [facility] TDAP 2008-11-23 Completed University of 00:00:00 [place] [facility] TDAP 2008-11-23 Completed University of 00:00:00 [facility] Vital Signs Vital Name Observation Time Observation Value Comments Source Systolic blood 2021-05-15 20:43:00 132 mm[Hg] [facility] Diastolic blood 2021-05-15 20:43:00 90 mm[Hg] [facility] Medicine Heart rate 2021-05-15 20:43:00 91 /min [facility] Body temperature 2021-05-15 20:43:00 36.44 [facility] Respiratory rate 2021-05-15 20:43:00 16 /min [facility] Body height 2021-05-15 20:43:00 157.5 cm [facility] Body weight 2021-05-15 20:43:00 115.667 kg [facility] BMI 2021-05-15 20:43:00 46.64 kg/m2 [facility] Systolic blood 2021-01-30 21:03:00 115 mm[Hg] Univer sity of pressure [facility] Diastolic blood 2021-01-30 21:03:00 81 mm[Hg] Unive rsity of pressure [facility] Heart rate 2021-01-30 21:03:00 84 /min Universi ty of [facility] Body temperature 2021-01-30 21:03:00 37.06 [place] Univ ersity of [facility] Respiratory rate 2021-01-30 21:03:00 16 /min Univ ersity of [facility] Body height 2021-01-30 21:03:00 160 cm Universi ty of [facility] Body weight 2021-01-30 21:03:00 122.273 kg Universi ty of [facility] BMI 2021-01-30 21:03:00 47.75 kg/m2 Universi ty of [place] [facility] Systolic blood 2020-06-29 16:55:00 123 mm[Hg] Univer sity of pressure [place] [facility] Diastolic blood 2020-06-29 16:55:00 77 mm[Hg] Unive rsity of pressure [place] [facility] Heart rate 2020-06-29 16:55:00 88 /min Universi ty of [place] [facility] Body temperature 2020-06-29 16:55:00 36.78 [place] Univ ersity of [place] [facility] Respiratory rate 2020-06-29 16:55:00 16 /min Univ ersity of [place] [facility] Body height 2020-06-29 16:55:00 160 cm Universi ty [facility] [place] [facility] Body weight 2020-06-29 16:55:00 116.121 kg Universi ty [facility] [place] [facility] BMI 2020-06-29 16:55:00 45.35 kg/m2 [facility]i [facility] [place] [facility] Systolic blood 2020-06-01 16:39:00 108 mm[Hg] Univer sity of pressure [place] [facility] Diastolic blood 2020-06-01 16:39:00 76 mm[Hg] Unive rsity of pressure [place] [facility] Heart rate 2020-06-01 16:39:00 82 /min Universi ty of [place] [facility] Body temperature 2020-06-01 16:39:00 36.5 [place] Univ ers[facility] of [place] [facility] Respiratory rate 2020-06-01 16:39:00 16 /min Univ ersity of [place] [facility] Body height 2020-06-01 16:39:00 160 cm [facility]i ty [facility] [place] [facility] Body weight 2020-06-01 16:39:00 117.056 kg [facility]i [facility] [place] [facility] BMI 2020-06-01 16:39:00 45.71 kg/m2 [facility] [place] [facility] Systolic blood 2020-03-09 15:42:00 124 mm[Hg] Univer sity of pressure [place] [facility] Diastolic blood 2020-03-09 15:42:00 84 mm[Hg] Unive rsity of pressure [place] [facility] Heart rate 2020-03-09 15:42:00 76 /min Universi ty [facility] [place] [facility] Body temperature 2020-03-09 15:42:00 36.56 [place] Univ ers[facility] [place] [facility] Respiratory rate 2020-03-09 15:42:00 16 /min [facility] 2020-03-09 15:42:00 160 cm Universi ty [facility] Body weight 2020-03-09 15:42:00 116.631 kg Universi ty [facility] BMI 2020-03-09 15:42:00 45.55 kg/m2 Universi ty [facility] Systolic blood 2019-07-05 19:34:00 140 mm[Hg] Univer sity of pressure [facility] Diastolic blood 2019-07-05 19:34:00 88 mm[Hg] Unive rsity of pressure [facility] Heart rate 2019-07-05 19:34:00 91 /min Universi ty [facility] Body temperature 2019-07-05 19:34:[address] [facility] Respiratory rate 2019-07-05 19:34:00 16 /min [facility] 2019-07-05 19:34:00 160 cm [facility] Body weight 2019-07-05 19:34:00 118.02 kg [facility] BMI 2019-07-05 19:34:00 46.09 kg/m2 [facility] Procedures Procedure Date / Time Performed Performing Clinician Sourc e GC & CHLAMYDIA 2020-03-09 18:51:00 Lucrecia Reyna [facility] AMPLIFIED [facility] HIV 1/2 AG-AB WITH 2020-03-09 16:50:00 Lucrecia Renya [facility] [place] ASSIGNMENT OF BENEFITS 2020-03-09 15:23:21 Doctor Unassigned, No [facility] Plan of Care Planned Activity Planned Date Details Comments Source Future Scheduled 2021-05-15 Screening for malignant [facility] Test 21:02:20 neoplasm of colon of Medicin e (procedure) [code = 097471578] Future Scheduled 2021-05-15 Screening for malignant [facility] Test 21:02:20 neoplasm of breast of Medici ne (procedure) [code = 258883678] Future Scheduled 2021-05-15 COVID-19 Vaccine (1) [facility] Test 21:02:20 [code = COVID-19 of Medicine Vaccine (1)] Future Scheduled 2021-05-15 BMI FOLLOW UP PLAN [facility] r College Test 21:02:20 [code = BMI FOLLOW UP of Med icine PLAN] Future Scheduled 2021-05-15 Hepatitis C screening [facility] Test 21:02:20 (procedure) [code = of Medic ine 251304550] Future Scheduled 2021-05-15 Human immunodeficiency [facility] Test 21:02:20 virus screening of Medicine (procedure) [code = 110269276] Future Scheduled 2021-05-15 Screening for malignant [facility] Test 21:02:20 neoplasm of cervix of Medici ne (procedure) [code = 468148697] Future Scheduled 2021-05-15 FLU VACCINE > 6 MONTHS B [facility] College Test 21:02:20 [code = FLU VACCINE > 6 of M edicine MONTHS] Future Scheduled 2021-05-15 TETANUS SHOT (ADULT) [facility] Test 21:02:20 [code = TETANUS SHOT of Medi cine (ADULT)] Future Scheduled 2021-05-15 ZOSTER VACCINE (1 of 2) [facility] Test 21:02:20 [code = ZOSTER VACCINE of Me dicine (1 of 2)] Future Scheduled 2021-05-15 XR LUMBAR SPINE AP 1 Occurrences [facility] or College Test 15:03:38 LATERAL OBLIQUES starting of Medicine FLEXION AND EXTENSION 05/15/2021 until [code = 24474-8] 05/15/2022 Future Scheduled 2021-05-15 MRI LUMBAR SPINE WO 1 Occurrences [facility] Test 15:03:38 CONTRAST [code = starting of Medicine 25760-1] 05/15/2021 until 12/13/2021 Encounters Start End Encounter Admission Attending Care Care Encounter Source Date/Time Date/Time Type Type Clinicians Facility Department ID 2021-07-18 Outpatient Laura [facility] [id number] Common 14:35:12 Peg [facility] 2021-07-[address] [facility] [id number] Common 14:25:43 Peg [id number] [facility] 2021-07-18 Outpatient Laura [facility] [id number] Common 13:13:17 Peg [id number] [facility] 2021-07-18 Outpatient Laura [facility] [id number] Common 13:03:23 Peg [id number] [facility] 2021-07-18 Outpatient STLMLC STLMLC [id number] Common 13:02:04 [id number] [facility] 2021-06-25 2021-06-25 ambulatory STLMLC STLMLC [id number] Common 00:00:00 00:00:00 [facility] 2021-06-11 2021-06-11 ambulatory STLMLC STLMLC [id number] Common 00:00:00 00:00:00 [facility] 2021-05-15 2021-05-16 Office TEJINDER MC [id number] [facility] 14:33:17 08:40:42 Visit HERNANDO AMBULATOR [id number] College Y 0.2.7.2.686 of [id number] [facility] 805 e 2021-05-15 2021-05-15 Outpatient WILLIAM [facility] [id number] SLE 00:00:00 00:00:00 HERNANDO 2021-05-03 2021-05-03 ambulatory STLMLC STLMLC [id number] Common 00:00:00 00:00:00 [facility] 2021-03-14 2021-03-14 Outpatient R MAYANK [facility] [id number] Univers 15:30:00 15:30:00 DYLON major f [facility] 2021-03-14 2021-03-14 Outpatient R [facility] [id number] Univers 14:15:00 14:15:00 [id number] ity of [facility] 2021-02-28 2021-02-28 Outpatient STLMLC STLMLC [id number] Common 00:00:00 00:00:00 [facility] 2021-02-13 2021-02-13 Outpatient STLMLC STLMLC [id number] Common 00:00:00 00:00:00 [facility] 2021-01-30 2021-01-30 Nurse Visit, Juan-Rmchp Nurse [facility] 1.2 .840.114 [id number] Univers 15:53:28 16:44:30 Visit Zhao Pavithra Prado NETWORKING TECHNICIAN [id number] ity of [facility] [id number] Kei as MATERNAL [phone] [facility] [address] 2021-01-30 2021-01-30 Outpatient R [facility] [id number] Univers 15:30:00 15:30:00 [id number] [facility] 2021-01-30 2021-01-30 Outpatient R [facility] [id number] Univers 15:30:00 15:30:00 [facility] 2021-01-26 2021-01-26 Telephone Zhao [facility] [id number] Univers 00:00:00 00:00:00 Pavithra Prado NETWORKING TECHNICIAN [id number] it y of REGIONAL [id number] Kei as MATERNAL [phone] [address] 2020-12-06 2020-12-06 Outpatient LE SEGOVIA [facility] SLEH [id number] SLEH 00:00:00 00:00:00 2020-11-30 2020-11-30 Outpatient STLMLC STLMLC [id number] Common 00:00:00 00:00:00 [facility] 2020-11-23 2020-11-23 Outpatient STLMLC STLMLC [id number] Common 00:00:00 00:00:00 [facility] 2020-11-22 2020-11-22 Outpatient TEJINDER MC [facility] [id number] [facility] 14:01:40 15:50:57 HERNANDO [facility] 2020-11-17 2020-11-17 Outpatient STLMLC STLMLC [id number] Common 00:00:00 00:00:00 [facility] 2020-11-01 2020-11-01 Outpatient STLMLC STLMLC [id number] Common 00:00:00 00:00:00 [facility] 2020-10-31 2020-10-31 Outpatient STLMLC STLMLC [id number] Common 00:00:00 00:00:00 [facility] 2020-09-07 2020-09-07 Patient NORBERT Cassidy 1.2.840.114 [id number] Univers 00:00:00 00:00:00 Outreach Isai SUSANNAH 350.1.13.10 i ty [facility] 4.2.7.2.686 Renee COSME [phone] [address] 2020-07-13 2020-07-13 [facility] [id number] Univers 09:45:00 09:45:00 [facility] [id number] [facility] 2020-07-13 2020-07-13 [facility] [id number] Univers 09:45:00 09:45:00 PAVITHRA [facility] 2020-06-29 2020-06-29 Nurse Visit, Juan-Nestorp Nurse [facility] 1.2 .840.114 [id number] Univers 10:49:28 11:13:01 Visit Pavithra Churchill NETWORKING TECHNICIAN [id number] ity [facility] [id number] Kei as MATERNAL [phone] Med ical & CHILD [address] [place] [address] 2020-06-29 2020-06-29 Outpatient R [facility] [id number] Univers 10:30:00 10:30:00 [id number] [facility] 2020-06-29 2020-06-29 Outpatient R [facility] [id number] Univers 10:30:00 10:30:00 it[facility] 2020-06-01 2020-06-01 Nurse Visit, Ang-Rmchp Nurse [facility] 1.2 .840.114 [id number] Univers 10:17:15 10:32:15 Visit Lucrecia Reyna NETWORKING TECHNICIAN 350.1.13. 10 ity [facility] [id number] Kei as MATERNAL [id number] [facility] ical & CHILD [address] [place] [address] 2020-06-01 2020-06-01 Outpatient R [facility] [id number] Univers 10:00:00 10:00:00 ity [facility] 2020-06-01 2020-06-01 Outpatient R [facility] [id number] Univers 10:00:00 10:00:00 ity of [facility] 2020-04-04 2020-04-04 Outpatient R MARIBELL, [facility] [id number] Univers 14:30:00 14:30:00 LUCRECIA [id number] felicianoy o f [facility] 2020-04-04 2020-04-04 [facility] [id number] Univers 00:00:00 00:00:00 LUCRECIA munson o f [facility] 2020-03-28 2020-03-28 [facility] [id number] Univers 09:30:00 09:30:00 PAVITHRA it[facility] 2020-03-28 2020-03-28 [facility] [id number] Univers 09:30:00 09:30:00 PAVITHRA [facility] 2020-03-09 2020-03-09 Office [facility] [id number] Univers 10:31:24 12:02:48 Visit Lucrecia Ivy NETWORKING TECHNICIAN [id number] ity of [facility] [id number] Kei as MATERNAL [phone] Med ical & CHILD [address] [place] [address] 2020-03-09 2020-03-09 [facility] [id number] Univers 10:30:00 10:30:00 LUCRECIA munson o f [facility] 2020-03-09 2020-03-09 Outpatient R [facility] [id number] Univers 10:00:00 10:00:00 [id number] [facility] 2020-03-09 2020-03-09 Orders Doctor SURENDRA 1.2.840.114 [id number] Univers 00:00:00 00:00:00 Only Unassigned, ONUR 350.1.13.10 ity of [place] [facility] [id number] Kei as [phone] [address] 2020-03-02 2020-03-02 Outpatient R [facility] [id number] Univers 08:45:00 08:45:00 it[facility] 2020-03-02 2020-03-02 Outpatient R [facility] [id number] Univers 08:45:00 08:45:00 ity of [facility] 2020-02-29 2020-02-29 [facility]phone [facility] 1.2.840.114 [id number] Univers 00:00:00 00:00:00 Pavithra Prado NETWORKING TECHNICIAN [id number] it y of [facility] [id number] Kei as MATERNAL [id number] Med ical & CHILD [address] [place] [address] 2019-10-01 2019-10-01 Outpatient R [facility] [id number] Univers 15:00:00 15:00:00 ity of [facility] 2019-09-28 2019-09-28 [facility] 1.2 .840.114 [id number] Univers 09:11:45 09:20:20 Visit Lucrecia Reyna NETWORKING TECHNICIAN 350.1.13. 10 ity of [facility] [id number] Kei as MATERNAL [id number] Med ical & CHILD [address] [place] [address] 2019-09-28 2019-09-28 Outpatient R [facility] [id number] Univers 09:00:00 09:00:00 ity of [facility] 2019-09-28 2019-09-28 Outpatient R MARIBELL [facility] [id number] Univers 09:00:00 09:00:00 LUCRECIA munson o f [facility] 2019-09-27 2019-09-27 Telephone [facility] 1.2.840.114 [id number] Univers 00:00:00 00:00:00 Pavithra Prado NETWORKING TECHNICIAN [id number] it y of [facility] [id number] Kei as MATERNAL [phone] [facility] ical & CHILD [address] [place] [address] 2019-07-05 2019-07-05 Nurse [facility], [facility] 1.2 .840.114 [id number] Univers 13:10:34 13:50:19 Visit Pavithra Churchill NETWORKING TECHNICIAN [id number] ity of [facility] [id number] Kei as MATERNAL [phone] [facility] ical & CHILD [address] [place] [address] 2018-07-23 2018-07-23 Outpatient [facility] [id number] [place] 00:00:00 00:00:00 [facility] 2018-05-19 2018-05-19 Outpatient [facility] [id number] [place] 11:17:09 11:17:09 [facility] 2018-05-07 2018-05-07 Outpatient [facility] [id number] [place] 10:48:10 10:48:10 [facility] 2018-04-02 2018-04-02 Outpatient [facility] [id number] [place] 12:14:10 12:14:10 [facility] 2018-04-02 2018-04-02 Outpatient [facility] [id number] [place] 10:54:20 10:54:20 [facility] 2018-01-28 2018-01-28 Outpatient [facility] [id number] [place] 13:08:52 13:08:52 [facility] 2018-01-28 2018-01-28 Outpatient [facility] [id number] [place] 00:00:00 00:00:00 [facility] 2018-01-27 2018-01-27 Outpatient [facility] [id number] [place] 00:00:00 00:00:00 [facility] 2018-01-15 2018-01-15 Outpatient [facility] [id number] [place] 00:00:00 00:00:00 [facility] 2018-01-14 2018-01-14 Outpatient [facility] [id number] [place] 12:00:30 12:00:30 [facility] 2018-01-14 2018-01-14 Outpatient [facility] [id number] [place] 10:46:23 10:46:23 [facility] 2017-12-12 2017-12-12 Outpatient [facility] [id number] [place] 10:17:15 10:17:15 [facility] 2017-11-25 2017-11-25 Outpatient [facility] [id number] [place] 00:00:00 00:00:00 [facility] 2017-11-14 2017-11-14 Outpatient [facility] [id number] [place] 00:00:00 00:00:00 [facility] 2017-10-07 2017-10-07 Outpatient [facility] [id number] [place] 00:00:00 00:00:00 [facility] 2017-09-19 2017-09-19 Outpatient [facility] [id number] [place] 00:00:00 00:00:00 [facility] 2017-09-01 2017-09-01 Outpatient [facility] [id number] [place] 00:00:00 00:00:00 [facility] 2017-09-01 2017-09-01 Outpatient [facility] [id number] [place] 00:00:00 00:00:00 [facility] 2017-08-26 2017-08-26 Outpatient [facility] [id number] [place] 00:00:00 00:00:00 [facility] 2017-08-20 2017-08-20 Outpatient [facility] [id number] [place] 07:59:13 07:59:13 [facility] 2017-08-19 2017-08-19 Outpatient [facility] [id number] [place] 10:47:45 10:47:45 [facility] 2017-08-04 2017-08-04 Outpatient [facility] [id number] [place] 10:53:27 10:53:27 [facility] 2017-08-01 2017-08-01 Outpatient [facility] [id number] [place] 15:52:44 15:52:44 [facility] 2017-08-01 2017-08-01 Outpatient [facility] [id number] [place] 14:35:31 14:35:31 [facility] 2017-07-16 2017-07-16 Outpatient [facility] [id number] [place] 08:58:14 08:58:14 [facility] 2017-07-14 2017-07-14 Outpatient [facility] [id number] [place] 09:23:02 09:23:02 [facility] 2017-07-14 2017-07-14 Outpatient [facility] [id number] [place] 08:36:24 08:36:24 [facility] 2017-07-03 2017-07-03 Outpatient [facility] [id number] [place] 07:54:46 07:54:46 [facility] 2017-07-01 2017-07-01 Outpatient [facility] [id number] [place] 09:43:22 09:43:22 [facility] 2017-06-10 2017-06-10 Outpatient [facility] [id number] [place] 12:10:00 12:10:00 [facility] 2017-06-10 2017-06-10 Outpatient [facility] [id number] [place] 10:39:54 10:39:54 [facility] 2017-04-03 2017-04-03 Outpatient [facility] [id number] [place] 11:44:02 11:44:02 [facility] 2017-04-02 2017-04-02 Outpatient [facility] [id number] [place] 10:37:27 10:37:27 [facility] 2017-02-07 2017-02-07 Outpatient [facility] [id number] [place] 14:53:26 14:53:26 Health 2017-01-30 2017-01-30 Outpatient [facility] [id number] [place] 08:47:47 08:47:47 Health 2017-01-24 2017-01-24 Outpatient [facility] [id number] [place] 11:12:51 11:12:51 Health 2017-01-20 2017-01-20 Outpatient [facility] [id number] [place] 00:00:00 00:00:00 Health 2017-01-01 2017-01-01 Outpatient [facility] [id number] [place] 00:00:00 00:00:00 Health 2016-12-30 2016-12-30 Outpatient [facility] [id number] [place] 00:00:00 00:00:00 Health Results Test Description Test Time Test Comments Results Result Comments Source [facility] + LH PROFILE 2021-10-13 06:19:40 Test Item Value Reference Range Interpretation Comme nts FOLLICLE STIM HORMONE (test 13.7 IU/L SEE BELOW EXPECTED VALUES code = 4910) FOR FSH FOR FEM ALES >17 YEARS MALES FEMALES >=18 YEARS 1.5-12.4 IU/L FOLLICULAR 3.5-12 .5 IU/L MID-CYCLE PE [place] 4.7-21 .5 IU/L LUTEAL PHASE 1.7-7. 7 IU/L POSTMENOPAUS AL 25.8-13 4.8 IU/L LUTEINIZING HORMONE (test code 15.4 IU/L SEE BELOW EXPECTED VALUES = 2776) FOR LH FOR FEMA LES >17 YEARS MALES FEMALES >=18 YEARS 1.8-8.6 IU/L FOLLICULAR 2.4-12 .6 IU/L MID-CYCLE PE [place] 14.0-95 .6 IU/L LUTEAL PHASE 1.0-11 .4 IU/L POSTMENOPAUS AL 7.7-58 .5 IU/L [id number] 06:19:40 Test Item Value Reference Range Interpretation Comments ESTRADIOL (test 209.0 PG/ML SEE BELOW EXP ECTED VALUES FOR code = 8757) ESTRADIOL FOR F EMALES >=18 YEARS FOLLICULAR . . . . . . . . . . . . . PG/ML 12.4 -233.0 OVULATION. . . . . . . . . . . . . . PG /ML 41.0-398.0 LUTEAL PHASE . . . . . . . . . . . . PG/ML 22.3- 341.0 POSTMENOPAUSAL SUPPLEMENTED/NO N-SUPP . PG/ML <138. 0/<20.0 NOTE: TO DETERM INE NORMAL VS. SUBNORMAL ESTRA DIOL IN POSTMENOPAUSAL FEMALES, CONSIDER ULTRAS ENSITIVE ESTRADIOL ( [facility] ORDER CODE 5678). METHODO LOGY IS TORY JAMES ELECTROCHEMILUM INESCENT IMMUNOASSAY WIT H A LIMIT OF DETECTION OF 17 PG/ML. UNLESS OTHE RWISE INDICATED, ALL TESTING PERFORMED [facility] PATHOLOGY LABOR [facility]. [address] [place] [address] PROFESSIONAL SKATER: MIRANDA RODRIGUEZ M.D. CLIA NUMBER [id number] [place]. [id number] LIPID [id number] 00:12:17 Test Item Value Reference Range Interpretation Comments CHOLESTEROL (test 171 MG/DL <200 code = 2210) TRIGLYCERIDES (test 157 MG/DL <150 H code = 2232) HDL CHOLESTEROL (test 37 MG/DL >39 L code = 2220) CALC LDL CHOL (test 107 MG/DL <100 H NOTE: C ALCULATED LDL code = 2237) IS BASED ON JOSE-KOVACS METHOD WHICHINCLUDES ADJUSTABLE TRIGLYCERIDE:VL DL CHOLESTEROL RAT IO.THIS FACTOR VARIES B Y MEASURED TRIGLY CERIDE AND NON-HDLCHOL ESTEROL CONCENTRATIONS WITH INCREASED CALCU LATED LDL SEENIN HIGH ER TRIGLYCERIDE OR LOWER NON-HDL SPECIME NS. FOR MOREINFORMATION , SEE CLIENT ANNOUNCE MENT AT [email or web address] RISK RATIO LDL/HDL 2.89 RATIO <3.22 UN LESS (test code = 2238) OTHERWISE INDICATED, ALL TESTING PER FORMED ATCLINICAL PATH OLOGY LABORATORIES, I [place]. [address] [place] [address] LABORATORY DIRE CTOR: MIRANDA LOPEZ M.D. CLIA NUMBER [id number] CAP ACCREDITATION N O. [id number] CBC W/AUTO DIFF WITH [id number] 04:06:10 Test Item Value Reference Range Interpretation Comments WBC (test code = 6.7 K/UL 3.5-11.0 1001) RBC (test code = 4.27 M/UL 3.80-5.40 1002) HEMOGLOBIN (test code 12.8 G/DL 11.5-15.5 = 1003) HEMATOCRIT (test code 36.7 % 34.0-45.0 = 1004) MCV (test code = 85.9 fL 80.0-99.0 1005) MCH (test code = 30.0 PG 25.0-33.0 1006) MCHC (test code = 34.9 G/DL 31.0-36.0 1007) RDW (test code = 14.6 % 11.5-15.0 1038) NEUTROPHILS (test 60.7 % code = 1008) LYMPHOCYTES (test 29.5 % code = 1010) MONOCYTES (test code 6.8 % = 1011) EOSINOPHILS (test 1.9 % code = 1012) BASOPHILS (test code 1.0 % = 1013) IMMATURE GRANULOCYTES 0.1 % (test code = 1036) NUCLEATED RBCS (test 0.0 /100 See_Comment [Autom ated code = 1065) WBC'S message] The sy stem which generated this result transmitted reference range : 0.0. The refere nce range was not u sed to interpret th is result as normal/abnormal . PLATELET COUNT (test 205 K/UL 130-400 code = 1015) ABSOLUTE NEUTROPHILS 4.07 K/UL 1.50-7.50 (test code = 1066) ABSOLUTE LYMPHOCYTES 1.98 K/UL 1.00-4.00 (test code = 1067) ABSOLUTE MONOCYTES 0.46 K/UL 0.20-1.00 (test code = 1068) ABSOLUTE EOSINOPHILS 0.13 K/UL 0.00-0.50 (test code = 1040) ABSOLUTE BASOPHILS 0.07 K/UL 0.00-0.20 (test code = 1069) ABS IMMATURE 0.01 K/UL 0.00-0.10 GRANULOCYTES (test code = 1020) ABS NUCLEATED RBCS 0.00 K/UL 0.00-0.11 (test code = 79664) VITAMIN D, 25 [id number] 04:03:26 Test Item Value Reference Range Interpretation Comments VITAMIN D, 25 OH 13 NG/ML SEE BELOW L NOTE: 25-H YDROXYVITAMIN D (test code = 4958) ASSAY INC LUDES 25-HYDROXYVITAM IN D2 AND D3. METHOD OLOGY IS CHEMILUMINESCEN T IMMUNOASSAY. INTERPRE TIVE RANGES PEDIATRIC (<17 YEARS) . . . . . . . . . . . NG/ML 20-100A DULT: INSUFFICIENT . . . . . . . . . . . . . . N G/ML <20 SUBOPTI MAL . . . . . . . . . . . . . . . NG/ML 20-29 OPTIMAL . . . . . . . . . . . . . . . . . NG/ML 30-100 COMPREHENSIVE METABOLIC [id number] 02:55:12 Test Item Value Reference Range Interpretation Comments GLUCOSE (test code = 105 MG/DL 70-99 H 2216) BUN (test code = 16 MG/DL 6-20 2207) CREATININE (test 0.84 MG/DL 0.60-1.30 code = 2214) eGFR (2020 CKD-EPI) 85 ML/MIN/1.73 >60 (test code = 71696) CALC BUN/CREAT (test 19 RATIO 6-28 code = 2235) SODIUM (test code = 141 MEQ/L 808-130 1971) POTASSIUM (test code 3.8 MEQ/L 3.5-5.4 = 2227) CHLORIDE (test code 104 MEQ/L 95-107 = 2215) CARBON DIOXIDE (test 27 MEQ/L 19-31 code = 2206) CALCIUM (test code = 9.7 MG/DL 8.5-10.5 2208) PROTEIN, TOTAL (test 7.9 G/DL 6.1-8.3 code = 2229) ALBUMIN (test code = 4.5 G/DL 3.5-5.2 2200) CALC GLOBULIN (test 3.4 G/DL 1.9-3.7 code = 2240) CALC A/G RATIO (test 1.3 RATIO 1.0-2.6 code = 2234) BILIRUBIN, TOTAL 0.4 MG/DL See_Comment [Automated message] (test code = 2207) The syste m which generated this result transmit josr reference range : <=1.2. The refe rence range was not u sed to interpret th is result as normal/abnormal . ALKALINE PHOSPHATASE 81 U/L 40-128 (test code = 2204) AST (test code = 25 U/L 9-40 8) ALT (test code = 34 U/L 5-40 2218) HEMOGLOBIN [id number] 02:39:22 Test Item Value Reference Range Interpretation Comments HEMOGLOBIN A1c (test 5.3 % 4.2-5.6 UNLESS OTHERWISE code = 94626) INDICATED, ALL TESTING PERFORMED [facility] PATHOLOGY [facility], [facility]. [address] [place] [address] 4 LABORATORY DIRE CTOR: MIRANDA LOPEZ M.D. CLIA NUMBER [id number] [facility] [place] [id number] GC & CHLAMYDIA AMPLIFIED [id number] 19:39:00 Test Item Value Reference Range Interpretation Comments C. trachomatis Nucleic Negative Negative Acid (test code = 60863-2) N. gonorrhoeae Nucleic Negative Negative Acid (test code = 66643-5) KATELIN (test code = KATELIN) Reliable results are dependent on adequate specimen collection. ? A positive result obtained from a patient after therapeutic treatment cannot be interpreted as indicating the presence of viable organisms. ?For patients on whom a false positive result may have adverse psychosocial impact, retesting is advised. Indeterminate: Unable to generate a valid test result on this specimen. ?Please submit a new specimen for repeat testing if clinically indicated. Chlamydia trachomatis/Neisseria gonorrhoeae nucleic acid amplification testing (NAAT) has not been validated for medico-legal specimens (sexual abuse in grant-pubertal and pre-pubertal children, sexual assault, and legal cases). ?Culture for Chlamydia trachomatis and/or Neisseria gonorrhoeae from clinically appropriate sites is the method of choice in these cases. ? Results from this testing should be interpreted in conjunction with other laboratory and clinical data available to the clinician.For females in general, a urine specimen is a second-line option because it is considered less sensitive than a cervical swab for Chlamydia trachomatis and/or Neisseria gonorrhoeae NAAT. Lab Interpretation Normal (test code = 42373-6) [facility] & CHLAMYDIA AMPLIFIED [id number] 19:39:00 Test Item Value Reference Range Interpretation Comments C. trachomatis Nucleic Negative Negative Acid (test code = 29174-0) N. gonorrhoeae Nucleic Negative Negative Acid (test code = 18988-0) KATELIN (test code = KATELIN) Reliable results are dependent on adequate specimen collection. ? A positive result obtained from a patient after therapeutic treatment cannot be interpreted as indicating the presence of viable organisms. ?For patients on whom a false positive result may have adverse psychosocial impact, retesting is advised. Indeterminate: Unable to generate a valid test result on this specimen. ?Please submit a new specimen for repeat testing if clinically indicated. Chlamydia trachomatis/Neisseria gonorrhoeae nucleic acid amplification testing (NAAT) has not been validated for medico-legal specimens (sexual abuse in grant-pubertal and pre-pubertal children, sexual assault, and legal cases). ?Culture for Chlamydia trachomatis and/or Neisseria gonorrhoeae from clinically appropriate sites is the method of choice in these cases. ? Results from this testing should be interpreted in conjunction with other laboratory and clinical data available to the clinician.For females in general, a urine specimen is a second-line option because it is considered less sensitive than a cervical swab for Chlamydia trachomatis and/or Neisseria gonorrhoeae NAAT. Lab Interpretation Normal (test code = 45905-9) [facility] 1/2 AG-AB WITH [id number] 04:35:00 Test Item Value Reference Range Interpretation Comments HIV Negative Negative Semi-quantitative (test code = 17051-6) KATELIN (test code = Non-reactive for HIV-1 KATELIN) antigen and HIV-1/HIV-2 antibodies. ?No laboratory evidence of HIV infection. ?Repeat in 2-4 weeks if acute HIV infection is suspected. [facility] /2 AG-AB WITH [id number] 04:35:00 Test Item Value Reference Range Interpretation Comments HIV Negative Negative Semi-quantitative (test code = 27569-5) KATELIN (test code = Non-reactive for HIV-1 KATELIN) antigen and HIV-1/HIV-2 antibodies. ?No laboratory evidence of HIV infection. ?Repeat in 2-4 weeks if acute HIV infection is suspected. [facility]
[2021-12-06] MEDS ORDERED: NA CHLORIDE 0.9% 1,000 ML ONE (23:40)
[2021-12-07 00:34] LABS: Absolute Lymphocytes (CBC) 2.6 K/uL (0.7-4.9); Hematocrit 35.4 % (36.0-45.0); Lymphocytes % 33.4 % (15.3-44.8); MPV 8.8 fL (7.6-11.3); RBC Red Blood Cell Count 4.07 M/uL (3.86-4.86)
[2021-12-07 00:48] LABS: Protime INR 0.99
[2021-12-07 00:52] LABS: Urine Blood Negative (Negative); Urine Glucose Negative (Negative); Urine Protein Negative (Negative); Urine Specific Gravity >=1.030 (1.005-1.030); Urine pH 5.5 (5.0-7.0)
[2021-12-07 01:05] LABS: ALT/SGPT 46 U/L (12-78); AST/SGOT 24 U/L (15-37); Albumin 3.8 g/dL (3.4-5.0); Alkaline Phosphatase 85 U/L (45-117); BUN Blood Urea Nitrogen 16 mg/dL (7-18); Bicarbonate 30 mmol/L (21-32); Bilirubin Direct < 0.1 mg/dL (0-0.2); Bilirubin Total 0.3 mg/dL (0.2-1.0); Glomerular Filtration Rate 75 ml/min (=/>90); Glucose Level 108 mg/dL (74-106); NT PRO-BNP 19 pg/mL (<125); Potassium 3.1 mmol/L (3.5-5.1); Sodium Level 143 mmol/L (136-145); Troponin High Sensitivity 3.6 pg/mL (<58.9)
[2021-12-07] MEDS ORDERED: POTASSIUM 25 MEQ EFFERV TAB ONE (01:26)
--- NOTE | 2021-12-07 03:04 | ER ---
Nurse's Notes [facility] Name: Ngozi Silverman Age: 51 yrs Sex: Female : 1970 Arrival Date: 12/06/2021 Time: 22:59 Bed 14 Private MD: Diagnosis: Palpitations;Lymphedema, not elsewhere classified;Edema, unspecified;Essential (primary) hypertension;Hypokalemia;Acute interstitial pneumonitis-NON SPECIFIC Presentation: 12/06 23:02 Chief complaint: Patient states: Intermittent palpitations with shortness of breath lp1 since the beginning of this year, worsening for the last 2 weeks; Went to doctor today and states she was told that her EKG was abnormal and recommended to go to ER. Coronavirus screen: At this time, the client does not indicate any symptoms associated with coronavirus-19. Ebola Screen: No symptoms or risks identified at this time. Risk Assessment: Do you want to hurt yourself or someone else? Patient reports no desire to harm self or others. 23:02 Acuity: YOLI 3 lp1 23:02 Method Of Arrival: Ambulatory lp1 23:02 Initial Sepsis Screen: Does the patient meet any 2 criteria? No. Patient's initial lp1 sepsis screen is negative. Does the patient have a suspected source of infection? No. Patient's initial sepsis screen is negative. Onset of symptoms was December 06, 2021. 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 - Social history:: Smoking status: Patient denies any tobacco usage or history of. - Family history:: not pertinent. Screenin:09 Abuse screen: Denies threats or abuse. Denies injuries from another. Nutritional lp1 screening: No deficits noted. Tuberculosis screening: No symptoms or risk factors identified. 23:15 Fall Risk No fall in past 12 months (0 pts). No secondary diagnosis (0 pts). IV access ll3 (20 points). Ambulatory Aid- None/Bed Rest/Nurse Assist (0 pts). Gait- Normal/Bed Rest/Wheelchair (0 pts) Mental Status- Oriented to own ability (0 pts). Total Garcia Fall Scale indicates No Risk (0-24 pts). Assessment: 23:15 General: Appears uncomfortable, Behavior is calm, cooperative. ll3 23:15 Neuro: Level of Consciousness is awake, alert, obeys commands, Oriented to person, ll3 place, time, situation. Cardiovascular: Reports palpitations, Patient's skin is warm and dry. Rhythm is sinus rhythm. Cardiovascular: Respiratory: Reports shortness of breath Respiratory effort is even, unlabored, Respiratory pattern is regular, symmetrical. Derm: Skin is pink, warm \T\ dry. Derm: Musculoskeletal: Circulation, motion, and sensation intact. Musculoskeletal: Swelling present in right leg and left leg. 23:15 Pain: Denies pain. ll3 12/07 00:34 Reassessment: No changes from previously documented assessment. Patient and/or family ll3 updated on plan of care and expected duration. Pain level reassessed. Patient is alert, oriented x 3, equal unlabored respirations, skin warm/dry/pink. 01:30 Reassessment: No changes from previously documented assessment. Patient and/or family ll3 updated on plan of care and expected duration. Pain level reassessed. Patient is alert, oriented x 3, equal unlabored respirations, skin warm/dry/pink. 03:00 Reassessment: No changes from previously documented assessment. Patient and/or family ll3 updated on plan of care and expected duration. Pain level reassessed. Patient is alert, oriented x 3, equal unlabored respirations, skin warm/dry/pink. Vital Signs: 12/06 23:02 BP 141 / 98; Pulse 87; Resp 18; Temp 98.7(O); Pulse Ox 100% on R/A; Weight 123.83 kg; lp1 Height 5 ft. 3 in. (160.02 cm); 12/07 00:54 BP 116 / 82; Pulse 68; Resp 14; Pulse Ox 99% on R/A; ll3 02:30 BP 132 / 95; Pulse 80; Resp 20; Pulse Ox 99% on R/A; ll3 04:00 BP 137 / 98; Pulse 70; Resp 18; Pulse Ox 99% on R/A; ll3 12/06 23:02 Body Mass Index 48.36 (123.83 kg, 160.02 cm) lp1 ED Course: 12/06 22:59 Patient arrived in ED. bp1 23:06 Triage completed. lp1 23:09 Arm band placed on left wrist. lp1 23:10 Olya Arechiga, RN is Primary Nurse. ll3 23:15 Patient has correct armband on for positive identification. Placed in gown. Bed in low ll3 position. Call light in reach. Side rails up X 1. Client placed on continuous cardiac and pulse oximetry monitoring. NIBP monitoring applied. 23:15 No provider procedures requiring assistance completed. ll3 23:21 Johnny Rice MD is Attending Physician. dion 23:47 XRAY Chest (1 view) In Process Unspecified. EDMS 12/07 00:00 Initial lab(s) drawn, by me, sent to lab. EKG done, by ED staff, reviewed by Johnny Rice MD. Inserted saline lock: 22 gauge in right antecubital area, using aseptic technique. Blood collected. 01:37 CT Chest For PE Angio In Process Unspecified. EDMS 03:03 James Mehta MD is Referral Physician. dion 03:03 Darren Driver MD is Referral Physician. dion 03:18 US Extremity Venous W Compression Cj In Process Unspecified. EDMS 04:38 IV discontinued, intact, bleeding controlled, No redness/swelling at site. Pressure ll3 dressing applied. Administered Medications: 00:22 Drug: NS 0.9% 1000 ml Route: IV; Rate: 75 ml/hr; Site: right antecubital; ll3 04:39 Follow up: Response: No adverse reaction; IV Status: Completed infusion ll3 02:15 Drug: Potassium Effervescent Tablet 50 mEq Route: PO; ll3 04:39 Follow up: Response: No adverse reaction ll3 03:18 Drug: Zithromax (azithromycin) 500 mg Route: PO; ll3 04:38 Follow up: Response: No adverse reaction ll3 Medication: 12/06 23:15 VIS not applicable for this client. ll3 Outcome: 12/07 03:03 Discharge ordered by . dion 04:36 Discharged to home ambulatory. ll3 04:36 Condition: stable 04:36 Discharge instructions given to patient, Instructed on discharge instructions, follow up and referral plans. medication usage, Demonstrated understanding of instructions, follow-up care, medications, Prescriptions given X 3. 04:39 Patient left the ED. ll3 Signatures: Dispatcher [employer] EDOR Johnny Rice MD MD cha Pena, Laura, RN RN lp1 Marie Baird Lynsea, RN RN ll3 Corrections: (The following items were deleted from the chart) 12/06 23:07 23:02 BP 141 / 98; Pulse 87bpm; Resp 18bpm; Pulse Ox 100% RA; 123.83 kg; Height 5 ft. 3 lp1 in.; BMI: 48.3; lp1 12/07 00:33 00:30 General: Appears uncomfortable, Behavior is calm, cooperative, ll3 ll3 00:33 00:30 Pain: ll3 ll3
--- NOTE | 2021-12-07 03:04 | EDPHYS ---
Physician Documentation [facility] Name: Ngozi Silverman Age: 51 yrs Sex: Female : 1970 Arrival Date: 12/06/2021 Time: 22:59 Bed 14 Private MD: LEYDI Physician Johnny Rice HPI: 12/06 23:30 This 51 yrs old Female presents to ER via Ambulatory with complaints of Rapid dion Heart Rate. 23:30 The patient presents with a history of heart racing. Context: The symptoms occur at dion rest. Onset: The symptoms/episode began/occurred today. Duration: The patient or guardian reports a single episode, that is still ongoing, The patient or guardian reports multiple episodes, that have now resolved. Modifying factors: The symptoms are aggravated by nothing. The symptoms are alleviated by nothing. Associated signs and symptoms: The patient has no apparent associated signs or symptoms. Severity of symptoms: At their worst the symptoms were mild in the emergency department the symptoms are unchanged. The patient has not experienced similar symptoms in the past. 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 - Social history:: Smoking status: Patient denies any tobacco usage or history of. - Family history:: not pertinent. ROS: 23:30 Constitutional: Negative for fever, chills, and weight loss, Eyes: Negative for injury, dion pain, redness, and discharge, ENT: Negative for injury, pain, and discharge, Neck: Negative for injury, pain, and swelling, Respiratory: Negative for shortness of breath, cough, wheezing, and pleuritic chest pain, Abdomen/GI: Negative for abdominal pain, nausea, vomiting, diarrhea, and constipation, Back: Negative for injury and pain, : Negative for injury, bleeding, discharge, and swelling, MS/Extremity: Negative for injury and deformity, Skin: Negative for injury, rash, and discoloration, Neuro: Negative for headache, weakness, numbness, tingling, and seizure, Psych: Negative for depression, anxiety, suicide ideation, homicidal ideation, and hallucinations, Allergy/Immunology: Negative for hives, rash, and allergies, Endocrine: Negative for neck swelling, polydipsia, polyuria, polyphagia, and marked weight changes, Hematologic/Lymphatic: Negative for swollen nodes, abnormal bleeding, and unusual bruising. 23:30 Cardiovascular: Positive for palpitations. Exam: 23:30 Constitutional: This is a well developed, well nourished patient who is awake, alert, dion and in no acute distress. Head/Face: Normocephalic, atraumatic. Eyes: Pupils equal round and reactive to light, extra-ocular motions intact. Lids and lashes normal. Conjunctiva and sclera are non-icteric and not injected. Cornea within normal limits. Periorbital areas with no swelling, redness, or edema. ENT: Nares patent. No nasal discharge, no septal abnormalities noted. Tympanic membranes are normal and external auditory canals are clear. Oropharynx with no redness, swelling, or masses, exudates, or evidence of obstruction, uvula midline. Mucous membranes moist. Neck: Trachea midline, no thyromegaly or masses palpated, and no cervical lymphadenopathy. Supple, full range of motion without nuchal rigidity, or vertebral point tenderness. No Meningismus. Chest/axilla: Normal chest wall appearance and motion. Nontender with no deformity. No lesions are appreciated. Cardiovascular: Regular rate and rhythm with a normal S1 and S2. No gallops, murmurs, or rubs. Normal PMI, no JVD. No pulse deficits. Respiratory: Lungs have equal breath sounds bilaterally, clear to auscultation and percussion. No rales, rhonchi or wheezes noted. No increased work of breathing, no retractions or nasal flaring. Abdomen/GI: Soft, non-tender, with normal bowel sounds. No distension or tympany. No guarding or rebound. No evidence of tenderness throughout. Back: No spinal tenderness. No costovertebral tenderness. Full range of motion. Skin: Warm, dry with normal turgor. Normal color with no rashes, no lesions, and no evidence of cellulitis. MS/ Extremity: Pulses equal, no cyanosis. Neurovascular intact. Full, normal range of motion. Neuro: Awake and alert, GCS 15, oriented to person, place, time, and situation. Cranial nerves II-XII grossly intact. Motor strength 5/5 in all extremities. Sensory grossly intact. Cerebellar exam normal. Normal gait. Psych: Awake, alert, with orientation to person, place and time. Behavior, mood, and affect are within normal limits. 23:30 Musculoskeletal/extremity: ROM: intact in all extremities, full active range of motion, full passive range of motion, Circulation is intact in all extremities. Sensation intact. Compartment Syndrome exam of affected extremity: is normal. DVT Exam: No signs of deep vein thrombosis. no pain, no swelling, no tenderness, negative Homans' sign noted on exam, no appreciated bluish discoloration, no erythema, no increased warmth. 23:35 ECG was reviewed by the Attending Physician. [facility] Vital Signs: 23:02 BP 141 / 98; Pulse 87; Resp 18; Temp 98.7(O); Pulse Ox 100% on R/A; Weight 123.83 kg; lp1 Height 5 ft. 3 in. (160.02 cm); 12/07 00:54 BP 116 / 82; Pulse 68; Resp 14; Pulse Ox 99% on R/A; ll3 02:30 BP 132 / 95; Pulse 80; Resp 20; Pulse Ox 99% on R/A; ll3 04:00 BP 137 / 98; Pulse 70; Resp 18; Pulse Ox 99% on R/A; ll3 12/06 23:02 Body Mass Index 48.36 (123.83 kg, 160.02 cm) lp1 MDM: 12/06 23:21 Patient medically screened. [facility] 23:32 Differential diagnosis: arrythmia, dehydration. Data reviewed: vital signs, nurses [facility] notes, lab test result(s), EKG, radiologic studies, plain films. Data interpreted: threat monitoring analyst: rate is 87 beats/min, rhythm is regular, Pulse oximetry: on room air is 87 %. Test interpretation: by ED physician or midlevel provider: ECG, plain radiologic studies. Counseling: I had a detailed discussion with the patient and/or guardian regarding: the historical points, exam findings, and any diagnostic results supporting the discharge/admit diagnosis, lab results, radiology results. 12/06 23:29 Order name: Basic Metabolic Panel; Complete Time: 01:07 [facility] 12/06 23:29 Order name: CBC with Diff; Complete Time: 00:50 [facility] 12/06 23:29 Order name: LFT's; Complete Time: 01:07 [facility] 12/06 23:29 Order name: Magnesium; Complete Time: 01:07 [facility] 12/06 23:29 Order name: NT PRO-BNP; Complete Time: 01:07 [facility] 12/06 23:29 Order name: PT-INR; Complete Time: 00:55 [facility] 12/06 23:29 Order name: Troponin HS; Complete Time: 01:07 [facility] 12/06 23:29 Order name: XRAY Chest (1 view) [facility] 12/06 23:29 Order name: TSH; Complete Time: 01:07 [facility] 12/06 23:29 Order name: D-Dimer; Complete Time: 00:55 [facility] 12/07 00:51 Order name: US Extremity Venous W Compression Cj [facility] 12/07 00:51 Order name: CT Chest For PE Angio [facility] 12/07 00:52 Order name: Urine Dipstick-Ancillary; Complete Time: 00:55 [facility] 12/06 23:29 Order name: EKG; Complete Time: 23:31 [facility] 12/06 23:29 Order name: Cardiac monitoring; Complete Time: 23:30 [facility] 12/06 23:29 Order name: EKG - Nurse/Tech; Complete Time: 23:30 [facility] 12/06 23:29 Order name: IV Saline Lock; Complete Time: 00:22 [facility] 12/06 23:29 Order name: Labs collected and sent; Complete Time: 00:22 [facility] 12/06 23:29 Order name: O2 Per Protocol; Complete Time: 23:30 [facility] 12/06 23:29 Order name: O2 Sat Monitoring; Complete Time: 23:30 [facility] 12/06 23:29 Order name: Urine Dipstick-Ancillary (obtain specimen); Complete Time: 00:52 [facility] 12/06 23:29 Order name: Urine Test (obtain specimen); Complete Time: 23:30 [facility] EC:35 Rate is 75 beats/min. Rhythm is regular. QRS Merlin is Normal. [place] interval is normal. QRS dion interval is normal. QT interval is normal. No Q waves. T waves are Normal. No ST changes noted. Clinical impression: Normal ECG and No evidence of ischemia. Interpreted by me. Reviewed by me. Administered Medications: 12/07 00:22 Drug: NS 0.9% 1000 ml Route: IV; Rate: 75 ml/hr; Site: right antecubital; ll3 04:39 Follow up: Response: No adverse reaction; IV Status: Completed infusion ll3 02:15 Drug: Potassium Effervescent Tablet 50 mEq Route: PO; ll3 04:39 Follow up: Response: No adverse reaction ll3 03:18 Drug: Zithromax (azithromycin) 500 mg Route: PO; ll3 04:38 Follow up: Response: No adverse reaction ll3 Disposition Summary: 12/07/21 03:03 Discharge Ordered Location: Home dion Problem: new dion Symptoms: have improved dion Condition: Stable dion Diagnosis - Palpitations dion - Lymphedema, not elsewhere classified dion - Edema, unspecified dion - Essential (primary) hypertension dion - Hypokalemia dion - Acute interstitial pneumonitis - NON SPECIFIC dion Followup: dion - With: Private Physician - When: 2 - 3 days - Reason: Recheck today's complaints, Continuance of care, Re-evaluation by your physician Followup: dion - With: James Mehta MD - When: 2 - 3 days - Reason: Recheck today's complaints, Re-evaluation by your physician Followup: dion - With: Darren Driver MD - When: 2 - 3 days - Reason: Recheck today's complaints, Re-evaluation by your physician Discharge Instructions: - Discharge Summary Sheet dion - Potassium Content of Foods dion - Edema dion - Hypertension, Adult dion - Palpitations dion - Hypertension, Adult, [id number]-[id number] dion - Edema, [id number] dion - How to Take Your Blood Pressure, [id number]-pc-[id number] dion - Aspirin and Your Heart dion - Palpitations, Reqk-pr-[id number] dion - Managing Your Hypertension dion - Peripheral Edema dion - Hypokalemia dion - Pneumonitis dion Forms: - Medication Reconciliation Form dion - Thank You Letter dion - Antibiotic Education dion - Prescription Opioid Use dion Prescriptions: - Metoprolol Tartrate 25 mg Oral Tablet - take 1 tablet by ORAL route 2 times per day with a meal; 20 tablet; Refills: 0, dion Product Selection Permitted - Xopenex HFA 45 mcg/actuation Inhalation HFA aerosol inhaler - inhale 2 puff by INHALATION route every 6 hours; 1 Pump; Refills: 0, Product [facility] Selection Permitted - Zithromax 500 mg Oral Tablet - take 1 tablet by ORAL route once daily for 5 days; 5 tablet; Refills: 0, dion Product Selection Permitted Signatures: Dispatcher [employer] Johnny Vergara MD MD cha Pena, Laura, RN RN lp1 Olya Arechiga RN RN ll3 Birgit Bach PA PA sb3
[2021-12-07] MEDS ORDERED: AZITHROMYCIN 250 MG TAB ONE (03:12)
[2021-12-07 04:54] VITALS: TEMP 98.7
[2021-12-07 04:56] VITALS: O2SAT 99
[2021-12-07 05:00] VITALS: BP 137/98
--- NOTE | 2021-12-07 11:30 | RAD REPORT ---
EXAM DESCRIPTION: CT - Chest For Pe Angio - 12/07/2021 6:41 am CLINICAL HISTORY: The patient is 51 years old and is Female; dyspnea TECHNIQUE: Axial computed tomographic angiography images of the chest with intravenous contrast. S agittal and coronal reformatted images were created and reviewed. This CT exam was performed using one or more of the following dose reduction techniques: automated exposure control, adjustment of t he mA and/or kV according to patient size, and/or use of iterative reconstruction technique. MIP re constructed images were created and reviewed. COMPARISON: No relevant prior studies available. FINDINGS: Pulmonary arteries: Unremarkable. No pulmonary embolism. Aorta: No acute findings. No thoracic aortic aneurysm. Lungs: Mild left perihilar groundglass opacities. Pleural space: Unremarkable. No significant effusion. No pneumothorax. Heart: Unremarkable. No cardiomegaly. No significant pericardial effusion. No evidence of RV dysfunction. Bones/joints: No acute fracture. No dislocation. Soft tissues: Incidental 1.5 cm right breast nodule. Correlate with mammographic history. Lymph nodes: Unremarkable. No enlarged lymph nodes. IMPRESSION: 1. Mild left perihilar groundglass opacities. Findings can be seen with infectious a nd inflammatory etiologies. 2. No evidence of pulmonary embolism. 3. Incidental 1.5 cm right breast nodule. Correlate with mammographic history. Electronically signed by: Seth Smith MD 12/07/2021 2:13 AM CDT Due to temporary technical issues with the PACS/Fluency reporting system, reports are being signed by the in house radiologist without review as a courtesy to ensure prompt reporting. The interpreting r adiologist is fully responsible for the content of the report.
--- NOTE | 2021-12-07 11:38 | RAD REPORT ---
EXAM DESCRIPTION: RAD - Chest Single View - 12/06/2021 11:46 pm CLINICAL HISTORY: The patient is 51 years old and is Female; COUGH TECHNIQUE: Frontal view of the chest. COMPARISON: No relevant prior studies available. FINDINGS: Lungs: Mildly prominent interstitial markings. No consolidation. Pleural space: Unremarkable. No pneumothorax. Heart: Unremarkable. Mediastinum: Unremarkable. Bones/joints: Unremarkable. IMPRESSION: Mildly prominent interstitial markings. No consolidation. Electronically signed by: Seth Smith MD 12/07/2021 12:13 AM CDT Due to temporary technical issues with the PACS/Fluency reporting system, reports are being signed by the in house radiologist without review as a courtesy to ensure prompt reporting. The interpreting r adiologist is fully responsible for the content of the report.
--- NOTE | 2021-12-07 11:52 | RAD REPORT ---
EXAM DESCRIPTION: US - Extrem Venous W Compress Cj - 12/07/2021 3:17 am CLINICAL HISTORY: PAINbilateral lower extremities COMPARISON: None. TECHNIQUE: Real-time sonographic evaluation of the bilateral lower extremity common femoral, superfi cial femoral, popliteal and posterior tibial veins was performed. FINDINGS: Normal compressibility, flow augmentation, phasic flow and spontaneous flow are identified in the left and right lower extremity common femoral, superficial femoral, popliteal and posterior t ibial veins. No intraluminal filling defects seen. Final written report was delayed due to technical factors. Preliminary findings were provided at the time of the study. IMPRESSION: No DVT in either lower extremity.
--- NOTE | 2021-12-08 08:56 | EKG ---
Test Date: 2021-12-06 Test Time: 23:16:00 Collection Correspondent: SHANTE MEASUREMENT RESULTS: Intervals: Rate: 75 MD: 162 QRSD: 82 QT: 396 QTc: 442 [place]: P: 26 MD: 162 QRS: -10 T: 45 INTERPRETIVE STATEMENTS: Normal sinus rhythm Normal ECG No previous ECG available for comparison Electronically Signed On 12-08-21 08:55:13 CDT by Darren Driver
== END 2021-12-07 04:39 | disposition home or self-care (01) ==
LOC: ER 22:25
DX: R00.2 Palpitations (principal); E87.6 Hypokalemia; J84.114 Acute interstitial pneumonitis; I89.0 Lymphedema, not elsewhere classified; R60.9 Edema, unspecified; I10 Essential (primary) hypertension; Z88.8 Allergy status to other drugs, medicaments and biological substances
CPT/HCPCS: 96361; 93005; 85025; 80048; 36415; 83735; 85610; 85379; 80076; 84443; 81003; 84484; 83880; 71275; 71045; 93970; 96360; 99284; Q9967; J7030

== ENCOUNTER 2022-03-22 21:44 | Emergency (ER) | payer OTHER ==
--- OUTSIDE RECORDS SUMMARY | 2022-03-22 22:06 | XMS REPORT | Continuity of Care Document ---
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 carvedilol 2022-0 No 1mg 6.25 mg 2-23 tablet 00:00: 00 Dose 2022-0 No Unknown 2-23 00:00: 00 lisinopril 2022-0 No 1mg 20 2-23 mg-hydrochl 00:00: orothiazide 00 25 mg tablet Dose 2022-0 No Unknown 2-23 00:00: 00 carvedilol 2022-0 No 1mg 6.25 mg 2-23 tablet 00:00: 00 Dose 2022-0 No Unknown 2-23 00:00: 00 lisinopril 2022-0 No 1mg 20 2-23 mg-hydrochl 00:00: orothiazide 00 25 mg tablet ProAir HFA 2022-0 No 2mcg/ac 90 1-16 tuation mcg/actuati 00:00: on aerosol 00 inhaler ProAir HFA 2022-0 No 2mcg/ac 90 1-16 tuation mcg/actuati 00:00: on aerosol 00 inhaler ProAir HFA 2022-0 No 2mcg/ac 90 1-16 tuation mcg/actuati 00:00: on aerosol 00 inhaler ProAir HFA 2-0 No 2mcg/ac 90 1-16 tuation mcg/actuati 00:00: on aerosol 00 inhaler ProAir HFA 2-0 No 2mcg/ac 90 1-16 tuation mcg/actuati 00:00: on aerosol 00 inhaler ProAir HFA 2-0 No 2mcg/ac 90 1-16 tuation mcg/actuati 00:00: on aerosol 00 inhaler Claritin 10 2-0 No 1mg mg tablet -14 00:00: 00 fluticasone 2-0 No 2mcg/ac propionate 1-14 tuation 50 00:00: mcg/actuati 00 on nasal spray,suspe nsion benzonatate 2-0 No 1mg 100 mg 1-14 capsule 00:00: 00 Claritin 10 2021-0 No 1mg mg tablet 14 00:00: 00 fluticasone 2-0 No 2mcg/ac propionate 1-14 tuation 50 00:00: mcg/actuati 00 on nasal spray,suspe nsion benzonatate 2-0 No 1mg 100 mg 1-14 capsule 00:00: 00 Claritin 10 2-0 No 1mg mg tablet -14 00:00: 00 fluticasone 2-0 No 2mcg/ac propionate 1-14 tuation 50 00:00: mcg/actuati 00 on nasal spray,suspe nsion benzonatate 2-0 No 1mg 100 mg 1-14 capsule 00:00: 00 Claritin 10 2-0 No 1mg mg tablet -14 00:00: 00 fluticasone 2-0 No 2mcg/ac propionate 1-14 tuation 50 00:00: mcg/actuati 00 on nasal spray,suspe nsion benzonatate 2-0 No 1mg 100 mg 1-14 capsule 00:00: 00 Claritin 10 2-0 No 1mg mg tablet -14 00:00: 00 fluticasone 2-0 No 2mcg/ac propionate 1-14 tuation 50 00:00: mcg/actuati 00 on nasal spray,suspe nsion benzonatate 2-0 No 1mg 100 mg 1-14 capsule 00:00: 00 Claritin 10 2021-0 No 1mg mg tablet -14 00:00: 00 fluticasone 2021-0 No 2mcg/ac propionate -14 tuation 50 00:00: mcg/actuati 00 on nasal spray,suspe nsion benzonatate 2021-0 No 1mg 100 mg -14 capsule 00:00: 00 PANTOPRAZOL 2020-1 Yes 40mg Take 40 mg Rafi E SODIUM OR 1-23 by mouth. [facility] 14:46: of 36 Medicin e Norgestim-E 2020-06 Yes Take by [facility] 1-23 mouth. [facility] Triphasic 14:46: of (ORTHO 36 Medicin TRI-CYCLEN e LO OR) LISINOPRIL- 2020-06 Yes Take by [facility] HYDROCHLORO -23 mouth. Colleg e THIAZIDE OR 14:44: of 15 Medicin e felodipine 2020-0 No 1mg ER 10 mg 8-12 tablet,exte 00:00: nded 00 release 24 hr felodipine 2020-0 No 1mg ER 10 mg 8-12 tablet,exte 00:00: nded 00 release 24 hr felodipine 2020-0 No 1mg ER 10 mg 8-12 tablet,exte 00:00: nded 00 release 24 hr felodipine 2020-0 No 1mg ER 10 mg 8-12 tablet,exte 00:00: nded 00 release 24 hr felodipine 2020-0 No 1mg ER 10 mg 8-12 tablet,exte 00:00: nded 00 release 24 hr felodipine 2020-0 No 1mg ER 10 mg 8-12 tablet,exte 00:00: nded 00 release 24 hr ProAir HFA 2020-0 No 12mcg/a 90 8-03 ctuatio mcg/actuati 00:00: n on aerosol 00 inhaler ibuprofen 2020-0 No 1mg 600 mg 8-03 tablet 00:00: 00 lisinopril 1-0 No 1mg 20 8-03 mg-hydrochl 00:00: orothiazide 00 25 mg tablet ProAir HFA 1-0 No 12mcg/a 90 8-03 ctuatio mcg/actuati 00:00: n on aerosol 00 inhaler ibuprofen 2020-0 No 1mg 600 mg 8-03 tablet 00:00: 00 lisinopril 2021-0 No 1mg 20 8-03 mg-hydrochl 00:00: orothiazide 00 25 mg tablet ProAir HFA 2021-0 No 12mcg/a 90 8-03 ctuatio mcg/actuati 00:00: n on aerosol 00 inhaler ibuprofen 2021-0 No 1mg 600 mg 8-03 tablet 00:00: 00 lisinopril 2021-0 No 1mg 20 8-03 mg-hydrochl 00:00: orothiazide 00 25 mg tablet ProAir HFA 2021-0 No 12mcg/a 90 8-03 ctuatio mcg/actuati 00:00: n on aerosol 00 inhaler ibuprofen 2021-0 No 1mg 600 mg 8-03 tablet 00:00: 00 lisinopril 2021-0 No 1mg 20 8-03 mg-hydrochl 00:00: orothiazide 00 25 mg tablet ProAir HFA 2021-0 No 12mcg/a 90 8-03 ctuatio mcg/actuati 00:00: n on aerosol 00 inhaler ibuprofen 2021-0 No 1mg 600 mg 8-03 tablet 00:00: 00 lisinopril 2021-0 No 1mg 20 8-03 mg-hydrochl 00:00: orothiazide 00 25 mg tablet ProAir HFA 2021-0 No 12mcg/a 90 8-03 ctuatio mcg/actuati 00:00: n on aerosol 00 inhaler ibuprofen 2021-0 No 1mg 600 mg 8-03 tablet 00:00: 00 lisinopril 2021-0 No 1mg 20 8-03 mg-hydrochl 00:00: orothiazide 00 25 mg tablet lisinopril 2021-0 No 1mg 20 1-14 mg-hydrochl 00:00: orothiazide 00 25 mg tablet lisinopril 2021-0 No 1mg 20 1-14 mg-hydrochl 00:00: orothiazide 00 25 mg tablet lisinopril 2021-0 No 1mg 20 1-14 mg-hydrochl 00:00: orothiazide 00 25 mg tablet lisinopril 2021-0 No 1mg 20 1-14 mg-hydrochl 00:00: orothiazide 00 25 mg tablet lisinopril 2021-0 No 1mg 20 1-14 mg-hydrochl 00:00: orothiazide 00 25 mg tablet lisinopril 2020-0 No 1mg 20 1-14 mg-hydrochl 00:00: orothiazide 00 25 mg tablet felodipine 2019-1 No 1mg ER 10 mg 1-04 tablet,exte 00:00: nded 00 release 24 hr felodipine 2019-1 No 1mg ER 10 mg 1-04 tablet,exte 00:00: nded 00 release 24 hr felodipine 2019-1 No 1mg ER 10 mg 1-04 tablet,exte 00:00: nded 00 release 24 hr felodipine 2019-1 No 1mg ER 10 mg 1-04 tablet,exte 00:00: nded 00 release 24 hr felodipine 2019-1 No 1mg ER 10 mg 1-04 tablet,exte 00:00: nded 00 release 24 hr felodipine 2019-1 No 1mg ER 10 mg 1-04 tablet,exte 00:00: nded 00 release 24 hr cetirizine 2019-1 No 1mg 5 mg tablet 0-26 00:00: 00 Tessalon 2019-1 No 1mg Perles 100 0-26 mg capsule 00:00: 00 cetirizine 2019-1 No 1mg 5 mg tablet 026 00:00: 00 Tessalon 2019-1 No 1mg Perles 100 0-26 mg capsule 00:00: 00 cetirizine 2019-1 No 1mg 5 mg tablet 026 00:00: 00 Tessalon 2019-1 No 1mg Perles 100 0-26 mg capsule 00:00: 00 cetirizine 2019-1 No 1mg 5 mg tablet 026 00:00: 00 Tessalon 2019-1 No 1mg Perles 100 0-26 mg capsule 00:00: 00 cetirizine 2019-1 No 1mg 5 mg tablet 0-26 00:00: 00 Tessalon 2019-1 No 1mg Perles 100 0-26 mg capsule 00:00: 00 cetirizine 2019-1 No 1mg 5 mg tablet 0-26 00:00: 00 Tessalon 2019-1 No 1mg Perles 100 0-26 mg capsule 00:00: 00 propranolol 2020-0 No 1mg 20 mg 9-18 tablet 00:00: 00 propranolol 2020-0 No 1mg 20 mg 9-18 tablet 00:00: 00 propranolol 2020-0 No 1mg 20 mg 9-18 tablet 00:00: 00 propranolol 2020-0 No 1mg 20 mg 9-18 tablet 00:00: 00 propranolol 2020-0 No 1mg 20 mg 9-18 tablet 00:00: 00 propranolol 2020-0 No 1mg 20 mg 9-18 tablet 00:00: 00 amlodipine 2019-0 Yes Take by [facility] besylate 9-17 mouth. [facility] of (AMLODIPINE 15:52: [place] ORAL) [facility] LISINOPRIL 0 Yes Take by [facility] ORAL 9-17 mouth. ity of 15:52: [place] [address] [facility] amlodipine 0 Yes Take by [facility] besylate 9-17 mouth. ity of (AMLODIPINE 15:52: [place] ORAL) [facility] LISINOPRIL 0 Yes Take by [facility] ORAL 9-17 mouth. ity of 15:52: [place] [address] [facility] amlodipine 0 Yes Take by [facility] besylate 9-17 mouth. ity of (AMLODIPINE 15:52: [place] ORAL) [facility] LISINOPRIL 0 Yes Take by [facility] ORAL 9-17 mouth. ity of 15:52: [place] [address] [facility] amlodipine 0 Yes Take by [facility] besylate 9-17 mouth. ity of (AMLODIPINE 15:52: [place] ORAL) [facility] LISINOPRIL 0 Yes Take by [facility] ORAL 9-17 mouth. ity of 15:52: [place] [address] [facility] amlodipine 0 Yes Take by [facility] besylate 9-17 mouth. ity of (AMLODIPINE 15:52: [place] ORAL) [facility] LISINOPRIL 0 Yes Take by [facility] ORAL 9-17 mouth. ity of 15:52: [place] [address] [facility] amlodipine 2019-0 Yes Take by [facility] besylate 9-17 mouth. ity of (AMLODIPINE 15:52: [place] ORAL) [facility] LISINOPRIL 2019-0 Yes Take by [facility] ORAL 9-17 mouth. ity of 15:52: [place] [address] [facility] Branch amlodipine 2019-0 Yes Take by [facility] besylate 9-17 mouth. ity of (AMLODIPINE 15:52: [place] ORAL) [facility] LISINOPRIL 2020-0 Yes Take by [facility] ers ORAL 9-17 mouth. ity of 15:52: [place] 51 [facility] amlodipine 2020-0 Yes Take by [facility] ers besylate 9-17 mouth. ity of (AMLODIPINE 10:52: [place] ORAL) 51 [facility] Branch LISINOPRIL 2020-0 Yes Take by [facility] ers ORAL 9-17 mouth. ity of 10:52: [place] 51 [facility] norethindro 2020-0 Yes [id number] 1{tbl} Take 1 [facility] ne 0.35 mg 9-17 tablet by ity of tablet 00:00: mouth [place] 00 daily. [facility] benzocaine- 2020-0 Yes [id number] Apply to [facility] menthol, 9-17 area(s) as ity o f DERMOPLAST, 00:00: needed for [place] (DERMOPLAST 00 Pain or Medic al , WITH Itching. Branch MENTHOL,) 20-0.5 % topical spray norethindro 2020-0 Yes [id number] 1{tbl} Take 1 [facility] ne 0.35 mg 9-17 tablet by ity of tablet 00:00: mouth [place] 00 daily. [facility] benzocaine- 2020-0 Yes [id number] Apply to [facility] menthol, 9-17 area(s) as ity o f DERMOPLAST, 00:00: needed for [place] (DERMOPLAST 00 Pain or Medic al , WITH Itching. Branch MENTHOL,) 20-0.5 % topical spray norethindro 2020-0 Yes [id number] 1{tbl} Take 1 [facility] ne 0.35 mg 9-17 tablet by ity of tablet 00:00: mouth [place] 00 daily. [facility] benzocaine- 2020-0 Yes [id number] Apply to [facility] menthol, 9-17 area(s) as ity o f DERMOPLAST, 00:00: needed for [place] (DERMOPLAST 00 Pain or Medic al , WITH Itching. Branch MENTHOL,) 20-0.5 % topical spray norethindro 2020-0 Yes [id number] 1{tbl} Take 1 [facility] ne 0.35 mg 9-17 tablet by ity of tablet 00:00: mouth [place] 00 daily. [facility] benzocaine- 2020-0 Yes [id number] Apply to [facility] menthol, 9-17 area(s) as ity o f DERMOPLAST, 00:00: needed for [place] (DERMOPLAST 00 Pain or Medic al , WITH Itching. Branch MENTHOL,) 20-0.5 % topical spray norethindro 2020-0 Yes [id number] 1{tbl} Take 1 [facility] ne 0.35 mg 9-17 tablet by ity of tablet 00:00: mouth [place] 00 daily. [facility] benzocaine- 2020-0 Yes [id number] Apply to [facility] menthol, 9-17 area(s) as ity o f DERMOPLAST, 00:00: needed for [place] (DERMOPLAST 00 Pain or Medic al , WITH Itching. Branch MENTHOL,) 20-0.5 % topical spray norethindro 2020-0 Yes [id number] 1{tbl} Take 1 [facility] ne 0.35 mg 9-17 tablet by ity of tablet 00:00: mouth [place] 00 daily. [facility] benzocaine- 2020-0 Yes [id number] Apply to [facility] menthol, 9-17 area(s) as ity o f DERMOPLAST, 00:00: needed for [place] (DERMOPLAST 00 Pain or Medic al , WITH Itching. Branch MENTHOL,) 20-0.5 % topical spray norethindro 2020-0 Yes [id number] 1{tbl} Take 1 [facility] ne 0.35 mg 9-17 tablet by ity of tablet 00:00: mouth [place] 00 daily. [facility] Branch benzocaine- 2020-0 Yes [id number] Apply to [facility] menthol, 9-17 area(s) as ity o f DERMOPLAST, 00:00: needed for [place] (DERMOPLAST 00 Pain or Medic al , WITH Itching. Branch MENTHOL,) 20-0.5 % topical spray norethindro 2020-0 Yes [id number] 1{tbl} Take 1 [facility] ne 0.35 mg 9-17 tablet by ity of tablet 00:00: mouth [place] 00 daily. [facility] Branch benzocaine- 2020-0 Yes [id number] Apply to [facility] menthol, 9-17 area(s) as ity o f DERMOPLAST, 00:00: needed for [place] (DERMOPLAST 00 Pain or Medic al , WITH Itching. Branch MENTHOL,) 20-0.5 % topical spray Voltaren 1 2020-0 No 1% % topical 8-31 gel 00:00: 00 Voltaren 1 2020-0 No 1% % topical 8-31 gel 00:00: 00 Voltaren 1 2020-0 No 1% % topical 8-31 gel 00:00: 00 Voltaren 1 2020-0 No 1% % topical 8-31 gel 00:00: 00 Voltaren 1 2020-0 No 1% % topical 8-31 gel 00:00: 00 Voltaren 1 2020-0 No 1% % topical 8-31 gel 00:00: 00 ProAir HFA 2020-0 No 12mcg/a 90 7-02 ctuatio mcg/actuati 00:00: n on aerosol 00 inhaler felodipine 2020-0 No 1mg ER 10 mg 7-02 tablet,exte 00:00: nded 00 release 24 hr lisinopril 2020-0 No 1mg 20 7-02 mg-hydrochl 00:00: orothiazide 00 25 mg tablet gabapentin 2020-0 No 1mg 100 mg 7-02 capsule 00:00: 00 ProAir HFA 2020-0 No 12mcg/a 90 7-02 ctuatio mcg/actuati 00:00: n on aerosol 00 inhaler felodipine 2020-0 No 1mg ER 10 mg 7-02 tablet,exte 00:00: nded 00 release 24 hr lisinopril 2020-0 No 1mg 20 7-02 mg-hydrochl 00:00: orothiazide 00 25 mg tablet gabapentin 2020-0 No 1mg 100 mg 7-02 capsule 00:00: 00 ProAir HFA 2020-0 No 12mcg/a 90 7-02 ctuatio mcg/actuati 00:00: n on aerosol 00 inhaler felodipine 2020-0 No 1mg ER 10 mg 7-02 tablet,exte 00:00: nded 00 release 24 hr lisinopril 2020-0 No 1mg 20 7-02 mg-hydrochl 00:00: orothiazide 00 25 mg tablet gabapentin 2020-0 No 1mg 100 mg 7-02 capsule 00:00: 00 ProAir HFA 2020-0 No 12mcg/a 90 7-02 ctuatio mcg/actuati 00:00: n on aerosol 00 inhaler felodipine 2020-0 No 1mg ER 10 mg 7-02 tablet,exte 00:00: nded 00 release 24 hr lisinopril 2020-0 No 1mg 20 7-02 mg-hydrochl 00:00: orothiazide 00 25 mg tablet gabapentin 2020-0 No 1mg 100 mg 7-02 capsule 00:00: 00 ProAir HFA 2020-0 No 12mcg/a 90 7-02 ctuatio mcg/actuati 00:00: n on aerosol 00 inhaler felodipine 2020-0 No 1mg ER 10 mg 7-02 tablet,exte 00:00: nded 00 release 24 hr lisinopril 2020-0 No 1mg 20 7-02 mg-hydrochl 00:00: orothiazide 00 25 mg tablet gabapentin 2020-0 No 1mg 100 mg 7-02 capsule 00:00: 00 ProAir HFA 2020-0 No 12mcg/a 90 7-02 ctuatio mcg/actuati 00:00: n on aerosol 00 inhaler felodipine 2020-0 No 1mg ER 10 mg 7-02 tablet,exte 00:00: nded 00 release 24 hr lisinopril 2020-0 No 1mg 20 7-02 mg-hydrochl 00:00: orothiazide 00 25 mg tablet gabapentin 2020-0 No 1mg 100 mg 7-02 capsule 00:00: 00 triamcinolo 2020-0 No 1% ne 6-05 acetonide 00:00: 0.1 % 00 topical ointment triamcinolo 2020-0 No 1% ne 6-05 acetonide 00:00: 0.1 % 00 topical ointment triamcinolo 2020-0 No 1% ne 6-05 acetonide 00:00: 0.1 % 00 topical ointment triamcinolo 2020-0 No 1% ne 6-05 acetonide 00:00: 0.1 % 00 topical ointment triamcinolo 2020-0 No 1% ne 6-05 acetonide 00:00: 0.1 % 00 topical ointment triamcinolo 2020-0 No 1% ne 6-05 acetonide 00:00: 0.1 % 00 topical ointment felodipine 2020-0 No 1mg ER 10 mg 5-18 tablet,exte 00:00: nded 00 release 24 hr felodipine 2020-0 No 1mg ER 10 mg 5-18 tablet,exte 00:00: nded 00 release 24 hr felodipine 2020-0 No 1mg ER 10 mg 5-18 tablet,exte 00:00: nded 00 release 24 hr felodipine 2020-0 No 1mg ER 10 mg 5-18 tablet,exte 00:00: nded 00 release 24 hr felodipine 2020-0 No 1mg ER 10 mg 5-18 tablet,exte 00:00: nded 00 release 24 hr felodipine 2020-0 No 1mg ER 10 mg 5-18 tablet,exte 00:00: nded 00 release 24 hr felodipine 2020-0 No 1mg ER 10 mg 4-08 tablet,exte 00:00: nded 00 release 24 hr felodipine 2020-0 No 1mg ER 10 mg 4-08 tablet,exte 00:00: nded 00 release 24 hr felodipine 2020-0 No 1mg ER 10 mg 4-08 tablet,exte 00:00: nded 00 release 24 hr felodipine 2020-0 No 1mg ER 10 mg 4-08 tablet,exte 00:00: nded 00 release 24 hr felodipine 2020-0 No 1mg ER 10 mg 4-08 tablet,exte 00:00: nded 00 release 24 hr felodipine 2020-0 No 1mg ER 10 mg 4-08 tablet,exte 00:00: nded 00 release 24 hr furosemide 2020-0 No 1mg 20 mg 1-13 tablet 00:00: 00 furosemide 2020-0 No 1mg 20 mg 1-13 tablet 00:00: 00 furosemide 2020-0 No 1mg 20 mg 1-13 tablet 00:00: 00 furosemide 2020-0 No 1mg 20 mg 1-13 tablet 00:00: 00 furosemide 2020-0 No 1mg 20 mg 1-13 tablet 00:00: 00 furosemide 2020-0 No 1mg 20 mg 1-13 tablet 00:00: 00 amlodipine 2019-1 No 1mg 10 mg 2-11 tablet 00:00: 00 amlodipine 2019-1 No 1mg 10 mg 2-11 tablet 00:00: 00 amlodipine 2019-1 No 1mg 10 mg 2-11 tablet 00:00: 00 amlodipine 2019-1 No 1mg 10 mg 2-11 tablet 00:00: 00 amlodipine 2019-1 No 1mg 10 mg 2-11 tablet 00:00: 00 amlodipine 2019-1 No 1mg 10 mg 2-11 tablet 00:00: 00 lisinopril 2019-1 No 1mg 20 2-04 mg-hydrochl 00:00: orothiazide 00 25 mg tablet norethindro 2018- No 1mg ne 2-04 (contracept 00:00: jessica) 0.35 00 mg tablet lisinopril 2018- No 1mg 20 2-04 mg-hydrochl 00:00: orothiazide 00 25 mg tablet loratadine 2018- No 1mg 10 mg 2-04 tablet 00:00: 00 carvedilol 2018- No 1mg 12.5 mg 2-04 tablet 00:00: 00 carvedilol 2018- No 1mg 12.5 mg 2-04 tablet 00:00: 00 lisinopril 2018- No 1mg 20 2-04 mg-hydrochl 00:00: orothiazide 00 25 mg tablet norethindro 2018- No 1mg ne 2-04 (contracept 00:00: jessica) 0.35 00 mg tablet lisinopril 2018- No 1mg 20 2-04 mg-hydrochl 00:00: orothiazide 00 25 mg tablet loratadine 2018- No 1mg 10 mg 2-04 tablet 00:00: 00 carvedilol 2018- No 1mg 12.5 mg 2-04 tablet 00:00: 00 carvedilol 2018- No 1mg 12.5 mg 2-04 tablet 00:00: 00 lisinopril 2018- No 1mg 20 2-04 mg-hydrochl 00:00: orothiazide 00 25 mg tablet lisinopril 2018- No 1mg 20 2-04 mg-hydrochl 00:00: orothiazide 00 25 mg tablet norethindro 2018- No 1mg ne 2-04 (contracept 00:00: jessica) 0.35 00 mg tablet lisinopril 2018- No 1mg 20 2-04 mg-hydrochl 00:00: orothiazide 00 25 mg tablet loratadine 2018- No 1mg 10 mg 2-04 tablet 00:00: 00 carvedilol 2018- No 1mg 12.5 mg 2-04 tablet 00:00: 00 carvedilol 2018- No 1mg 12.5 mg 2-04 tablet 00:00: 00 norethindro 2018-1 No 1mg ne 2-04 (contracept 00:00: jessica) 0.35 00 mg tablet lisinopril 2018-06 No 1mg 20 2-04 mg-hydrochl 00:00: orothiazide 00 25 mg tablet lisinopril 2018-06 No 1mg 20 2-04 mg-hydrochl 00:00: orothiazide 00 25 mg tablet norethindro 2018-06 No 1mg ne 2-04 (contracept 00:00: jessica) 0.35 00 mg tablet lisinopril 2018-06 No 1mg 20 2-04 mg-hydrochl 00:00: orothiazide 00 25 mg tablet loratadine 2018-06 No 1mg 10 mg 2-04 tablet 00:00: 00 carvedilol 2018-06 No 1mg 12.5 mg 2-04 tablet 00:00: 00 carvedilol 2018-06 No 1mg 12.5 mg 2-04 tablet 00:00: 00 loratadine 2018-06 No 1mg 10 mg 2-04 tablet 00:00: 00 carvedilol 2018-06 No 1mg 12.5 mg 2-04 tablet 00:00: 00 lisinopril 2018-06 No 1mg 20 2-04 mg-hydrochl 00:00: orothiazide 00 25 mg tablet norethindro 2018-06 No 1mg ne 2-04 (contracept 00:00: jessica) 0.35 00 mg tablet lisinopril 2018-06 No 1mg 20 2-04 mg-hydrochl 00:00: orothiazide 00 25 mg tablet loratadine 2018-06 No 1mg 10 mg 2-04 tablet 00:00: 00 carvedilol 2018-06 No 1mg 12.5 mg 2-04 tablet 00:00: 00 carvedilol 2018-06 No 1mg 12.5 mg 2-04 tablet 00:00: 00 carvedilol 2018-06 No 1mg 12.5 mg 2-04 tablet 00:00: 00 LISINOPRIL 2018-06 Yes Take by [facility] ORAL 0-21 mouth. ity of 21:36: [address] LISINOPRIL 2018-06 Yes Take by [facility] ORAL 0-21 mouth. ity of 21:36: [address] LISINOPRIL 2018-06 Yes Take by [facility] ORAL 0-21 mouth. ity of 21:36: [place] [facility] LISINOPRIL 2018-06 Yes Take by [facility] ORAL 0-21 mouth. ity of 21:36: [place] [address] Medical Branch LISINOPRIL 2018-06 Yes Take by [facility] ORAL 0-21 mouth. ity of 21:36: [place] 12 [facility] amlodipine 2018-06 Yes Take by [facility] besylate 0-21 mouth. ity of (AMLODIPINE 21:35: [place] ORAL) Medical Branch amlodipine 2018-06 Yes Take by [facility] besylate 0-21 mouth. ity of (AMLODIPINE 21:35: [place] ORAL) [facility] Branch amlodipine 2018-06 Yes Take by [facility] besylate 0-21 mouth. ity of (AMLODIPINE 21:35: [place] ORAL) Medical Branch amlodipine 2018-06 Yes Take by [facility] besylate 0-21 mouth. ity of (AMLODIPINE 21:35: [place] ORAL) [facility] Branch amlodipine 2018-06 Yes Take by [facility] ers besylate 0-21 mouth. ity of (AMLODIPINE 21:35: [place] ORAL) [facility] norethindro 2018-06 Yes [id number] .35mg Take 1 [facility] ne 0.35 mg 0-21 tablet by ity of tablet 00:00: mouth [place] 00 daily. [facility] [id number] .35mg Take 1 [facility] ne 0.35 mg 0-21 tablet by ity of tablet 00:00: mouth [place] 00 daily. [facility] Yes [id number] .35mg Take 1 [facility] ne 0.35 mg 0-21 tablet by ity of tablet 00:00: mouth [place] 00 daily. [facility] Yes [id number] .35mg Take 1 [facility] ne 0.35 mg 0-21 tablet by ity of tablet 00:00: mouth [place] 00 daily. [facility] Yes [id number] .35mg Take 1 [facility] ne 0.35 mg 0-21 tablet by ity of tablet 00:00: mouth [place] [facility] [id number] .35mg Take 1 [facility] ne 0.35 mg 0-21 tablet by ity of tablet 00:00: mouth [place] 00 [facility]. [facility] Yes [id number] .35mg Take 1 [facility] ne 0.35 mg 0-21 tablet by ity of tablet 00:00: mouth [place] 00 daily. [facility] Branch norethindro 2018-06 Yes [id number] .35mg Take 1 [facility] ne 0.35 mg 0-21 tablet by ity of tablet 00:00: mouth [place] 00 daily. [facility] norethindro 2018-06 Yes [id number] .35mg Take 1 [facility] ne 0.35 mg 0-21 tablet by ity of tablet 00:00: mouth [place] 00 daily. [facility] norethindro 2018-06 Yes [id number] .35mg Take 1 [facility] ne 0.35 mg 0-21 tablet by ity of tablet 00:00: mouth [place] 00 daily. [facility] norethindro 2018-06 Yes [id number] .35mg Take 1 [facility] ne 0.35 mg 0-21 tablet by ity of tablet 00:00: mouth [place] 00 daily. [facility] Branch norethindro 2018-06 Yes [id number] .35mg Take 1 [facility] ne 0.35 mg 0-21 tablet by ity of tablet 00:00: mouth [place] 00 daily. [facility] Branch norethindro 2018-06 Yes [id number] .35mg Take 1 [facility] ne 0.35 mg 0-21 tablet by ity of tablet 00:00: mouth [place] 00 daily. [facility] Branch levonorgest Yes General 1{tbl} QD Take 1 [facility] rel-ethinyl 3-19 counseling tablet by [facility] estradiol 00:00: for mouth (LUTERA, 00 prescriptio daily. 28,) 0.1-20 n of oral mg-mcg contracepti tablet ves levonorgest Yes General 1{tbl} QD Take 1 [facility] rel-ethinyl 3-19 counseling tablet by Health estradiol 00:00: for mouth (LUTERA, 00 prescriptio daily. 28,) 0.1-20 n of oral mg-mcg contracepti tablet ves levonorgest Yes General 1{tbl} QD Take 1 [facility] rel-ethinyl 3-19 counseling tablet by Health estradiol 00:00: for mouth (LUTERA, 00 prescriptio daily. 28,) 0.1-20 n of oral mg-mcg contracepti tablet ves levonorgest Yes General 1{tbl} QD Take 1 [facility] rel-ethinyl 3-19 counseling tablet by Health estradiol 00:00: for mouth (LUTERA, 00 prescriptio daily. 28,) 0.1-20 n of oral mg-mcg contracepti tablet ves lisinopril- 2018-0 Yes Essential 1{tbl} QD Take 1 [facility] hydrochloro 7-25 hypertensio tablet by Health thiazide 00:00: n mouth (ZESTORETIC 00 daily. ) 20-25 mg per tablet amLODIPine 2018-0 Yes Essential 5mg QD Take 1/2 [facility] (NORVASC) 7-25 hypertensio of a [facility] 10 mg 00:00: n tablet by tablet 00 mouth daily. lisinopril- 2018-0 Yes Essential 1{tbl} QD Take 1 [facility] hydrochloro 7-25 hypertensio tablet by Health thiazide 00:00: n mouth (ZESTORETIC 00 daily. ) 20-25 mg per tablet amLODIPine 2017-0 Yes Essential 5mg QD Take 1/2 [facility] (NORVASC) 7-25 hypertensio of a Hea lth 10 mg 00:00: n tablet by tablet 00 mouth daily. lisinopril- 2018-0 Yes Essential 1{tbl} QD Take 1 [facility] hydrochloro 7-25 hypertensio tablet by Health thiazide 00:00: n mouth (ZESTORETIC 00 daily. ) 20-25 mg per tablet amLODIPine 2017-0 Yes Essential 5mg QD Take 1/2 [facility] (NORVASC) 7-25 hypertensio of a Hea lth 10 mg 00:00: n tablet by tablet 00 mouth daily. lisinopril- 2018-0 Yes Essential 1{tbl} QD Take 1 [facility] hydrochloro 7-25 hypertensio tablet by Health thiazide 00:00: n mouth (ZESTORETIC 00 daily. ) 20-25 mg per tablet amLODIPine 2018-0 Yes Essential 5mg QD Take 1/2 [facility] (NORVASC) 7-25 hypertensio of a Hea lth 10 mg 00:00: n tablet by tablet 00 mouth daily. cetirizine 2018-0 Yes Itchy skin 10mg Take 1 [facility] (ZYRTEC) 10 2-27 tablet by [facility] mg tablet 00:00: mouth at 00 bedtime nightly For skin itching. cetirizine 2018-0 Yes Itchy skin 10mg Take 1 [facility] (ZYRTEC) 10 2-27 tablet by [facility]a [facility] mg tablet 00:00: mouth at 00 bedtime nightly For skin itching. cetirizine 2017- Yes Itchy skin 10mg Take 1 [facility] (ZYRTEC) 10 2-27 tablet by [facility] mg tablet 00:00: mouth at 00 bedtime nightly For skin itching. cetirizine 2017- Yes Itchy skin 10mg Take 1 [facility] (ZYRTEC) 10 2-27 tablet by [facility]a [facility] mg tablet 00:00: mouth at 00 bedtime nightly For skin itching. naproxen Yes Right knee 500mg Q.5D Take 1 [facility] (NAPROSYN) 2-09 pain, tablet by [facility] 500 mg 00:00: unspecified mouth 2 tablet 00 chronicity times daily (with meals). naproxen Yes Right knee 500mg Q.5D Take 1 [facility] (NAPROSYN) 2-09 pain, tablet by [facility]a [facility] 500 mg 00:00: unspecified mouth 2 tablet 00 chronicity times daily (with meals). naproxen Yes Right knee 500mg Q.5D Take 1 [facility] (NAPROSYN) 2-09 pain, tablet by [facility] 500 mg 00:00: unspecified mouth 2 tablet 00 chronicity times daily (with meals). naproxen 2017- Yes Right knee 500mg Q.5D Take 1 [facility] (NAPROSYN) 2-09 pain, tablet by [facility] 500 mg 00:00: unspecified mouth 2 tablet 00 chronicity times daily (with meals). ketoconazol 2016-06 Yes Itchy scalp Apply [facility] (NIZORAL) 0-11 shampoo to [facility] 2 % shampoo 00:00: scalp 2 00 times per week for 5-10 minutes and then rinse out. May use for up to 8 weeks.. hydrocortis 2016-06 Yes Hemorrhoids Apply [facility] one-pramoxi 0-11 , rectally Heal ne 00:00: unspecified to (EPIFOAM) 00 hemorrhoid affected 1-1 % type area 3 to topical 4 times foam daily. ketoconazol 2016-06 Yes Itchy scalp Apply [facility] (NIZORAL) 0-11 shampoo to [facility] 2 % shampoo 00:00: scalp 2 00 times per week for 5-10 minutes and then rinse out. May use for up to 8 weeks.. hydrocortis 2016-06 Yes Hemorrhoids Apply [facility] one-pramoxi 0-11 , rectally Heal [facility] ne 00:00: unspecified to (EPIFOAM) 00 hemorrhoid affected 1-1 % type area 3 to topical 4 times foam daily. ketoconazol 2016-06 Yes Itchy scalp Apply [facility] (NIZORAL) 0-11 shampoo to [facility] 2 % shampoo 00:00: scalp 2 00 times per week for 5-10 minutes and then rinse out. May use for up to 8 weeks.. hydrocortis 2016-06 Yes Hemorrhoids Apply [facility] one-pramoxi 0-11 , rectally Heal [facility] ne 00:00: unspecified to (EPIFOAM) 00 hemorrhoid affected 1-1 % type area 3 to topical 4 times foam daily. ketoconazol 2016-06 Yes Itchy scalp Apply [facility] (NIZORAL) 0-11 shampoo to [facility] 2 % shampoo 00:00: scalp 2 00 times per week for 5-10 minutes and then rinse out. May use for up to 8 weeks.. hydrocortis 2016-06 Yes Hemorrhoids Apply [facility] one-pramoxi 0-11 , rectally Heal th ne 00:00: unspecified to (EPIFOAM) 00 hemorrhoid affected 1-1 % type area 3 to topical 4 times foam daily. albuterol Yes Unspecified 2{puff} Inhale 2 [facility] (VENTOLIN 8-18 asthma(493. Puffs by Health HFA,PROVENT 00:00: 90) mouth 4 [place] 00 times HFA,PROAIR daily as HFA) 90 needed for mcg/actuati Wheezing. on inhaler ciclesonide Yes Seasonal 1{spray QD Use 1 [facility] (ZETONNA) 8-18 allergic } [place] [facility] 37 00:00: rhinitis each mcg/actuati 00 due to nostril on nasal pollen, daily. HFA inhaler unspecified chronicity fluticasone Yes Seasonal 1{puff} Q.5D Inhale 1 [facility] -salmeterol 8-18 allergic Puff by [facility] (ADVAIR 00:00: rhinitis mouth 2 DISKUS) 00 due to times 250-50 pollen, daily. mcg/dose unspecified diskus chronicity inhaler albuterol Yes Unspecified 2{puff} Inhale 2 [place] (VENTOLIN 8-18 asthma(493. [facility] HFA,PROVENT 00:00: 90) mouth 4 [place] 00 times HFA,PROAIR daily as HFA) 90 needed for mcg/actuati Wheezing. on inhaler ciclesonide Yes Seasonal 1{spray QD Use 1 [facility] (ZETONNA) 8-18 allergic } [place] [facility] 37 00:00: rhinitis each mcg/actuati 00 due to nostril on nasal pollen, daily. HFA inhaler unspecified chronicity fluticasone Yes Seasonal 1{puff} Q.5D Inhale 1 [facility] -salmeterol 8-18 allergic Puff by [facility] (ADVAIR 00:00: rhinitis mouth 2 DISKUS) 00 due to times 250-50 pollen, daily. mcg/dose unspecified diskus chronicity inhaler albuterol Yes Unspecified 2{puff} Inhale 2 [facility] (VENTOLIN 8-18 asthma(493. [facility] HFA,PROVENT 00:00: 90) mouth 4 [place] 00 times HFA,PROAIR daily as HFA) 90 needed for mcg/actuati Wheezing. on inhaler ciclesonide Yes Seasonal 1{spray QD Use 1 [facility] (ZETONNA) 8-18 allergic } [place] [facility] 37 00:00: rhinitis each mcg/actuati 00 due to nostril on nasal pollen, daily. HFA inhaler unspecified chronicity fluticasone Yes Seasonal 1{puff} Q.5D Inhale 1 [facility] -salmeterol 8-18 allergic Puff by [facility] (ADVAIR 00:00: rhinitis mouth 2 DISKUS) 00 due to times 250-50 pollen, daily. mcg/dose unspecified diskus chronicity inhaler albuterol Yes Unspecified 2{puff} Inhale 2 [facility] (VENTOLIN 8-18 asthma(493. [facility] HFA,PROVENT 00:00: 90) mouth 4 [place] 00 times HFA,PROAIR daily as HFA) 90 needed for mcg/actuati Wheezing. on inhaler ciclesonide Yes Seasonal 1{spray QD Use 1 [facility] (ZETONNA) 8-18 allergic } [place] [facility] 37 00:00: rhinitis each mcg/actuati 00 due to nostril on nasal pollen, daily. HFA inhaler unspecified chronicity fluticasone 2017-0 Yes Seasonal 1{puff} Q.5D Inhale 1 [facility] -salmeterol 8-18 allergic Puff by [facility] (ADVAIR 00:00: rhinitis mouth 2 DISKUS) 00 due to times 250-50 pollen, daily. mcg/dose unspecified diskus chronicity inhaler albuterol 20170 Yes 2{puff} Inhale 2 [facility] (PROVENTIL 8-18 Puffs. ity of HFA) 90 00:00: [place] mcg/actuati 00 [facility] on inhaler Branch albuterol 2016-0 Yes 2{puff} Inhale 2 [facility] (PROVENTIL 8-18 Puffs. ity of HFA) 90 00:00: [place] mcg/actuati 00 [facility] on inhaler Branch albuterol 2016-0 Yes 2{puff} Inhale 2 [facility] (PROVENTIL [...] [place] mcg/actuati 00 [facility] on inhaler Branch zafirlukast 2014-0 Yes Asthmatic 20mg Q.5D Take 1 [facility] (ACCOLATE) 6-11 bronchitis tablet by Health 20 mg 00:00: mouth 2 tablet 00 times daily. zafirlukast 0 Yes Asthmatic 20mg Q.5D Take 1 [facility] (ACCOLATE) 6-11 bronchitis tablet by Health 20 mg 00:00: mouth 2 tablet 00 times daily. zafirlukast 2014-0 Yes Asthmatic 20mg Q.5D Take 1 [facility] (ACCOLATE) 6-11 bronchitis tablet by Health 20 mg 00:00: mouth 2 tablet 00 times daily. zafirlukast 2015-0 Yes Asthmatic 20mg Q.5D Take 1 [facility] (ACCOLATE) 6-11 bronchitis tablet by Health 20 mg 00:00: mouth 2 tablet 00 times daily. Immunizations Ordered Filled Immunization Date Status Comments [facility] e Immunization Name Name Influenza, 2018-04-[address] [facility] Vaccine<FLUCELVAX>( 00:00:00 Multi-Dose) Influenza, 2018-04-[address] [facility] Vaccine<FLUCELVAX>( 00:00:00 Multi-Dose) Influenza, 2018-04-[address] [facility] Vaccine<FLUCELVAX>( 00:00:00 Multi-Dose) Influenza, 2018-04-[address] [facility] Vaccine<FLUCELVAX>( 00:00:00 Multi-Dose) Influenza Virus 2018-04-02 Completed [facility] Vaccine 00:00:00 [facility] [place] [facility] Influenza Virus 2018-04-02 Completed [facility] Vaccine 00:00:00 [facility] [place] [facility] Influenza Virus 2018-04-02 Completed [facility] Vaccine 00:00:00 [facility] [place] [facility] Influenza Virus 2018-04-02 Completed [facility] of Vaccine 00:00:00 [facility] [place] [facility] Influenza Virus 2018-04-02 Completed [facility] of Vaccine 00:00:00 [facility] [place] [facility] Influenza Virus 2018-04-02 Completed [facility] of Vaccine 00:00:00 [facility] [place] [facility] Influenza Virus 2018-04-02 Completed [facility] of Vaccine 00:00:00 [facility] [place] [facility] Influenza Virus 2018-04-02 Completed [facility] of Vaccine 00:00:00 [facility] [place] [facility] Influenza Virus 2018-04-02 Completed [facility] of Vaccine 00:00:00 [facility] [place] [facility] Influenza Virus 2018-04-02 Completed [facility] of Vaccine 00:00:00 [facility] [place] [facility] Influenza Virus 2018-04-02 Completed [facility] of Vaccine 00:00:00 [facility] [place] [facility] Influenza Virus 2018-04-02 Completed [facility] of Vaccine 00:00:00 [facility] [place] [facility] Influenza Virus 2018-04-02 Completed [facility] of Vaccine 00:00:00 [facility] [place] [facility] Hepatitis B 2017-07-[address] [facility] Pedi/Adol 00:00:00 Influenza Vaccine, 2017-07-[address] [facility] Seasonal, 00:00:00 Injectable Hepatitis B 2017-07-16 Completed [facility] Pedi/Adol 00:00:00 Influenza Vaccine, 2017-07-16 Completed [facility] Seasonal, 00:00:00 Injectable Hepatitis B 2017-07-16 Completed [facility] Pedi/Adol 00:00:00 Influenza Vaccine, 2017-07-16 Completed [facility] Seasonal, 00:00:00 Injectable Hepatitis B 2017-07-[address] [facility] Pedi/Adol 00:00:00 Influenza Vaccine, 2017-07-16 Completed [facility] Seasonal, 00:00:00 Injectable Influenza Virus 2017-07-16 Completed [facility] of Vaccine (3+ yrs) 00:00:00 [facility] Influenza Virus 2017-07-16 Completed [facility] of Vaccine (3+ yrs) 00:00:00 [facility] Influenza Virus 2017-07-16 Completed [facility] of Vaccine (3+ yrs) 00:00:00 [facility] Influenza Virus 2017-07-16 Completed [facility] of Vaccine (3+ yrs) 00:00:00 [facility] Influenza Virus 2017-07-16 Completed [facility] of Vaccine (3+ yrs) 00:00:00 [facility] Influenza Virus 2017-07-16 Completed [facility] of Vaccine (3+ yrs) 00:00:00 [facility] Influenza Virus 2017-07-16 Completed [facility] of Vaccine (3+ yrs) 00:00:00 [facility] Influenza Virus 2017-07-16 Completed [facility] of Vaccine (3+ yrs) 00:00:00 [facility] Influenza Virus 2017-07-16 Completed [facility] of Vaccine (3+ yrs) 00:00:00 [facility] Influenza Virus 2017-07-16 Completed [facility] of Vaccine (3+ yrs) 00:00:00 [facility] Influenza Virus 2017-07-16 Completed [facility] y of Vaccine (3+ yrs) 00:00:00 [facility] Influenza Virus 2017-07-16 Completed [facility] of Vaccine (3+ yrs) 00:00:00 [facility] Influenza Virus 2017-07-16 Completed Universit y of Vaccine (3+ yrs) 00:00:00 [facility] Hepatitis B Vaccine 2015-02-07 Completed [employer] 00:00:00 Hepatitis B Vaccine 2015-02-07 Completed [employer] 00:00:00 Hepatitis B Vaccine 2015-02-07 Completed [employer] 00:00:00 Hepatitis B Vaccine 2015-02-07 Completed [employer] 00:00:00 HEP B, Adult Dosage 2015-02-07 Completed Unive rsity of 00:00:00 [facility] [place] [facility] HEP B, Adult Dosage 2015-02-07 Completed Unive rsity of 00:00:00 [facility] HEP B, Adult Dosage 2015-02-07 Completed Unive rsity of 00:00:00 [facility] HEP B, Adult Dosage 2015-02-07 Completed Unive rsity of 00:00:00 [facility] HEP B, Adult Dosage 2015-02-07 Completed Unive rsity of 00:00:00 [facility] HEP B, Adult Dosage 2015-02-07 Completed Unive rsity of 00:00:00 [facility] HEP B, Adult Dosage 2015-02-07 Completed Unive rsity of 00:00:00 [facility] HEP B, Adult Dosage 2015-02-07 Completed Unive rsity of 00:00:00 [facility] HEP B, Adult Dosage 2015-02-07 Completed Unive rsity of 00:00:00 [facility] HEP B, Adult Dosage 2015-02-07 Completed Unive rsity of 00:00:00 [facility] HEP B, Adult Dosage 2015-02-07 Completed Unive rsity of 00:00:00 [facility] HEP B, Adult Dosage 2015-02-07 Completed Unive rsity of 00:00:00 [facility] [place] [facility] HEP B, Adult Dosage 2015-02-07 Completed Unive rsity of 00:00:00 [facility] [place] [facility] PNEUMOCOCCAL 2014-10-[address] [facility] 23-VALPS VACCINE 25 00:00:00 MCG/0.5 ML INJECTION PNEUMOCOCCAL 2014-10-[address] [facility] 23-VALPS VACCINE 25 00:00:00 MCG/0.5 ML INJECTION PNEUMOCOCCAL 2014-10-[address] [facility] 23-VALPS VACCINE 25 00:00:00 MCG/0.5 ML INJECTION PNEUMOCOCCAL 2014-10-[address] [facility] 23-VALPS VACCINE 25 00:00:00 MCG/0.5 ML INJECTION Pneumococcal 2014-10-11 Completed University o f Polysaccharide, [...] 00:00:00 [place] [facility] PPSV23 (PNEUMOVAX) Branch Tdap Tetanus, 2008-11-23 Completed [facility] diphtheria, 00:00:00 acellular pertussis Vaccine Tdap Tetanus, 2008-11-23 Completed [facility] diphtheria, 00:00:00 acellular pertussis Vaccine Tdap Tetanus, 2008-11-23 Completed [facility] diphtheria, 00:00:00 acellular pertussis Vaccine Tdap Tetanus, 2008-11-23 Completed [facility] diphtheria, 00:00:00 acellular pertussis Vaccine TDAP 2008-11-23 Completed University of 00:00:00 [facility] [place] [facility] TDAP 2008-11-23 Completed University of 00:00:00 [facility] TDAP 2008-11-23 Completed University of 00:00:00 [facility] TDAP 2008-11-23 Completed University of 00:00:00 [facility] TDAP 2008-11-23 Completed University of 00:00:00 [facility] TDAP 2008-11-23 Completed University of 00:00:00 [facility] TDAP 2008-11-23 Completed University of 00:00:00 [facility] [place] [facility] TDAP 2008-11-23 Completed University of 00:00:00 [facility] Tdap 2008-11-23 Completed University of 00:00:00 [facility] Tdap 2008-11-23 Completed University of 00:00:00 [facility] Tdap 2008-11-23 Completed University of 00:00:00 [facility] TDAP 2008-11-23 Completed University of 00:00:00 [facility] TDAP 2008-11-23 Completed University 00:00:00 [facility] Vital Signs Vital Name Observation Time Observation Value Comments Source Systolic blood 2021-05-15 20:43:00 132 mm[Hg] [facility] Medicine Diastolic blood 2021-05-15 20:43:00 90 mm[Hg] [facility] Medicine Heart rate 2021-05-15 20:43:00 91 /min [facility] Body temperature 2021-05-15 20:43:00 36.44 [facility] Respiratory rate 2021-05-15 20:43:00 16 /min [facility] Body height 2021-05-15 20:43:[address] [facility] Body weight 2021-05-15 20:43:[address] [facility] BMI 2021-05-15 20:43:00 46.64 kg/m2 [facility] Systolic blood 2021-01-30 21:03:00 115 mm[Hg] Univer sity of [facility] Diastolic blood 2021-01-30 21:03:00 81 mm[Hg] Unive rsity of [facility] Heart rate 2021-01-30 21:03:00 84 /min Universi ty of [facility] [place] [facility] Body temperature 2021-01-30 21:03:00 37.06 Malia Univ ersity of [facility] Respiratory rate 2021-01-30 21:03:00 16 /min Univ ersity of [facility] Body height 2021-01-30 21:03:00 160 cm [facility]i ty [facility] Body weight 2021-01-30 21:03:00 122.273 kg Universi ty of [facility] BMI 2021-01-30 21:03:00 47.75 kg/m2 Universi ty of [facility] [place] [facility] Systolic blood 2020-06-29 16:55:00 123 mm[Hg] Univer sity of pressure [facility] Diastolic blood 2020-06-29 16:55:00 77 mm[Hg] Unive rsity of pressure [facility] Heart rate 2020-06-29 16:55:00 88 /min [facility]i ty of [facility] Body temperature 2020-06-29 16:55:00 36.78 [facility] Respiratory rate 2020-06-29 16:55:00 16 /min Univ ersity of [facility] Body height 2020-06-29 16:55:00 160 cm [facility]i ty [facility] Body weight 2020-06-29 16:55:00 116.121 kg [facility]i ty [facility] BMI 2020-06-29 16:55:00 45.35 kg/m2 [facility] Systolic blood 2020-06-01 16:39:00 108 mm[Hg] Univer sity of pressure [facility] Diastolic blood 2020-06-01 16:39:00 76 mm[Hg] Unive rsity of pressure [facility] Heart rate 2020-06-01 16:39:00 82 /min Universi ty of [facility] Body temperature 2020-06-01 16:39:00 36.5 [facility] Respiratory rate 2020-06-01 16:39:00 16 /min Univ ersity of [facility] Body height 2020-06-01 16:39:00 160 cm [facility]i ty [facility] Body weight 2020-06-01 16:39:00 117.056 kg [facility]i ty [facility] BMI 2020-06-01 16:39:00 45.71 kg/m2 [facility] ty [facility] Systolic blood 2020-03-09 15:42:00 124 mm[Hg] Univer sity of pressure [facility] Diastolic blood 2020-03-09 15:42:00 84 mm[Hg] Unive rsity of pressure [facility] Heart rate 2020-03-09 15:42:00 76 /min Universi ty of [facility] Body temperature 2020-03-09 15:42:00 36.56 [facility] Respiratory rate 2020-03-09 15:42:00 16 /min Univ ersity of [facility] Body height 2020-03-09 15:42:00 160 cm Universi ty of [facility] Body weight 2020-03-09 15:42:00 116.631 kg Universi [facility] BMI 2020-03-09 15:42:00 45.55 kg/m2 Universi ty [facility] Systolic blood 2019-07-05 19:34:00 140 mm[Hg] Univer sity of pressure [facility] Diastolic blood 2019-07-05 19:34:00 88 mm[Hg] Unive rsity of pressure [facility] Heart rate 2019-07-05 19:34:00 91 /min Universi ty [facility] Body temperature 2019-07-05 19:34:00 36.33 [facility] 2019-07-05 19:34:00 16 /[facility] height 2019-07-05 19:34:00 160 cm [facility] Body weight 2019-07-05 19:34:00 118.02 kg [facility] BMI 2019-07-05 19:34:00 46.09 kg/m2 [facility] BP Systolic 2022-02-12 16:31:00 111 mm[Hg] BP Diastolic 2022-02-12 16:31:00 75 mm[Hg] Weight Measured 2022-02-12 16:31:00 266.20 pounds Height Measured 2022-02-12 16:31:00 63.60 inches Body Temperature 2022-02-12 16:31:00 97.80 degrees Heart Rate 2022-02-12 16:31:00 75.00 /min Respiratory Rate 2022-02-12 16:31:00 24.00 /min BP Systolic 2022-01-18 16:31:00 111 mm[Hg] BP Diastolic 2022-01-18 16:31:00 81 mm[Hg] Weight Measured 2022-01-18 16:31:00 264.20 pounds Height Measured 2022-01-18 16:31:00 63.60 inches Body Temperature 2022-01-18 16:31:00 98.40 degrees Heart Rate 2022-01-18 16:31:00 92.00 /min Respiratory Rate 2022-01-18 16:31:00 18.00 /min BP Systolic 2022-01-07 15:15:00 101 mm[Hg] BP Diastolic 2022-01-07 15:15:00 71 mm[Hg] Weight Measured 2022-01-07 15:15:00 261.00 pounds Height Measured 2022-01-07 15:15:00 63.60 inches Body Temperature 2022-01-07 15:15:00 97.70 degrees Heart Rate 2022-01-07 15:15:00 78.00 /min Respiratory Rate 2022-01-07 15:15:00 21.00 /min BP Systolic 2021-12-13 09:00:00 134 mm[Hg] BP Diastolic 2021-12-13 09:00:00 96 mm[Hg] Weight Measured 2021-12-13 09:00:00 272.40 pounds Height Measured 2021-12-13 09:00:00 63.60 inches Body Temperature 2021-12-13 09:00:00 97.70 degrees Heart Rate 2021-12-13 09:00:00 84.00 /min Respiratory Rate 2021-12-13 09:00:00 21.00 /min BP Systolic 2021-12-06 15:36:00 135 mm[Hg] BP Diastolic 2021-12-06 15:36:00 81 mm[Hg] Weight Measured 2021-12-06 15:36:00 273.20 pounds Height Measured 2021-12-06 15:36:00 63.60 inches Body Temperature 2021-12-06 15:36:00 97.80 degrees Heart Rate 2021-12-06 15:36:00 113.00 /min Respiratory Rate 2021-12-06 15:36:00 25.00 /min BP Systolic 2021-11-27 13:55:00 117 mm[Hg] BP Diastolic 2021-11-27 13:55:00 74 mm[Hg] Weight Measured 2021-11-27 13:55:00 271.40 pounds Height Measured 2021-11-27 13:55:00 63.60 inches Body Temperature 2021-11-27 13:55:00 98.20 degrees Heart Rate 2021-11-27 13:55:00 78.00 /min Respiratory Rate 2021-11-27 13:55:00 21.00 /min BP Systolic 2021-10-16 09:58:00 BP Diastolic 2021-10-16 09:58:00 Weight Measured 2021-10-16 09:58:00 272.80 pounds Height Measured 2021-10-16 09:58:00 63.60 inches Body Temperature 2021-10-16 09:58:00 Heart Rate 2021-10-16 09:58:00 Respiratory Rate 2021-10-16 09:58:00 BP Systolic 2021-10-11 16:38:00 114 mm[Hg] BP Diastolic 2021-10-11 16:38:00 73 mm[Hg] Weight Measured 2021-10-11 16:38:00 272.80 pounds Height Measured 2021-10-11 16:38:00 63.60 inches Body Temperature 2021-10-11 16:38:00 97.90 degrees Heart Rate 2021-10-11 16:38:00 82.00 /min Respiratory Rate 2021-10-11 16:38:00 21.00 /min BP Systolic 2021-09-06 10:44:00 119 mm[Hg] BP Diastolic 2021-09-06 10:44:00 76 mm[Hg] Weight Measured 2021-09-06 10:44:00 275.40 pounds Height Measured 2021-09-06 10:44:00 63.60 inches Body Temperature 2021-09-06 10:44:00 98.50 degrees Heart Rate 2021-09-06 10:44:00 84.00 /min Respiratory Rate 2021-09-06 10:44:00 21.00 /min BP Systolic 2021-08-30 16:58:00 131 mm[Hg] BP Diastolic 2021-08-30 16:58:00 86 mm[Hg] Weight Measured 2021-08-30 16:58:00 278.40 pounds Height Measured 2021-08-30 16:58:00 63.60 inches Body Temperature 2021-08-30 16:58:00 97.60 degrees Heart Rate 2021-08-30 16:58:00 76.00 /min Respiratory Rate 2021-08-30 16:58:00 21.00 /min BP Systolic 2021-08-27 17:19:00 136 mm[Hg] BP Diastolic 2021-08-27 17:19:00 92 mm[Hg] Weight Measured 2021-08-27 17:19:00 277.00 pounds Height Measured 2021-08-27 17:19:00 63.60 inches Body Temperature 2021-08-27 17:19:00 98.00 degrees Heart Rate 2021-08-27 17:19:00 75.00 /min Respiratory Rate 2021-08-27 17:19:00 BP Systolic 2021-08-15 17:56:00 158 mm[Hg] BP Diastolic 2021-08-15 17:56:00 115 mm[Hg] Weight Measured 2021-08-15 17:56:00 279.80 pounds Height Measured 2021-08-15 17:56:00 63.60 inches Body Temperature 2021-08-15 17:56:00 98.40 degrees Heart Rate 2021-08-15 17:56:00 90.00 /min Respiratory Rate 2021-08-15 17:56:00 17.00 /min Procedures Procedure Date / Time Performed Performing Clinician [facility] e REFERRAL- 2021-10-23 05:01:00 Doctor Unassigned, No [facility] REQUEST/RESPONSE Name Medical Branch Ekg 2020-03-13 00:00:00 GC & CHLAMYDIA 2020-03-09 18:51:00 Lucrecia Reyna [facility] AMPLIFIED ASSAY [facility] HIV 1/2 AG-AB WITH 2020-03-09 16:50:00 Lucrecia Reyna [facility] REFLEX [facility] ASSIGNMENT OF BENEFITS 2020-03-09 15:23:21 Doctor Unassigned, No [facility] Name Medical Branch Plan of Care Planned Activity Planned Date Details Comments Source Future Scheduled 2022-07-16 Screening for malignant [facility] 00:00:00 neoplasm of cervix (procedure) [code = 900139005] Future Scheduled 2022-07-16 Screening for malignant [facility] Test 00:00:00 neoplasm of cervix (procedure) [code = 103263181] Future Scheduled 2022-07-16 Screening for malignant [facility] Test 00:00:00 neoplasm of cervix (procedure) [code = 641886448] Future Scheduled 2022-07-16 Screening for malignant [facility] Test 00:00:00 neoplasm of cervix (procedure) [code = 452068831] Future Scheduled 2022-07-16 Screening for malignant [facility] Test 00:00:00 neoplasm of cervix (procedure) [code = 827467886] Future Scheduled 2022-07-16 Screening for malignant [facility] Test 00:00:00 neoplasm of cervix (procedure) [code = 735979607] Future Scheduled 2022-07-16 Screening for malignant [facility] Test 00:00:00 neoplasm of cervix (procedure) [code = 265328604] Future Scheduled 2022-07-16 Screening for malignant [facility] Test 00:00:00 neoplasm of cervix (procedure) [code = 226888068] Future Scheduled 2021-05-15 ZOSTER VACCINE (1 of 2) [facility] Test 21:02:20 [code = ZOSTER VACCINE of Me dicine (1 of 2)] Future Scheduled 2021-05-15 Screening for malignant [facility] Test 21:02:20 neoplasm of colon of Medicin e (procedure) [code = 376327345] Future Scheduled 2021-05-15 Screening for malignant [facility] Test 21:02:20 neoplasm of breast of Medici ne (procedure) [code = 704849524] Future Scheduled 2021-05-15 COVID-19 Vaccine (1) [facility] Test 21:02:20 [code = COVID-19 of Medicine Vaccine (1)] Future Scheduled 2021-05-15 BMI FOLLOW UP PLAN [facility] Test 21:02:20 [code = BMI FOLLOW UP of Med icine PLAN] Future Scheduled 2021-05-15 Hepatitis C screening [facility] Test 21:02:20 (procedure) [code = of Medic ine [id number]] Future Scheduled 2021-05-15 Human immunodeficiency [facility] Test 21:02:20 virus screening of Medicine (procedure) [code = 002944712] Future Scheduled 2021-05-15 Screening for malignant [facility] Test 21:02:20 neoplasm of cervix of Medici ne (procedure) [code = 018282001] Future Scheduled 2021-05-15 FLU VACCINE > 6 MONTHS [facility] Test 21:02:20 [code = FLU VACCINE > 6 of M edicine MONTHS] Future Scheduled 2021-05-15 TETANUS SHOT (ADULT) [facility] Test 21:02:20 [code = TETANUS SHOT of Medi cine (ADULT)] Future Scheduled 2021-05-15 XR LUMBAR SPINE AP 1 Occurrences [employer] Test 15:03:38 LATERAL OBLIQUES starting of Medicine FLEXION AND EXTENSION 05/15/2021 until [code = 88005-1] 05/15/2022 Future Scheduled 2021-05-15 MRI LUMBAR SPINE WO 1 Occurrences [facility] Test 15:03:38 CONTRAST [code = starting of Medicine 89438-4] 05/15/2021 until 12/13/2021 Future Scheduled 2021 Screening for malignant [facility] Test 00:00:00 neoplasm of colon (procedure) [code = 796804050] Future Scheduled 2021 Screening for malignant [facility] Test 00:00:00 neoplasm of colon (procedure) [code = 289449635] Future Scheduled 2021 Screening for malignant [facility] Test 00:00:00 neoplasm of colon (procedure) [code = 265363204] Future Scheduled 2021 Screening for malignant [facility] Test 00:00:00 neoplasm of colon (procedure) [code = 461998111] Future Scheduled 2019-01-28 Breast Cancer Scrn [facility] 00:00:00 (Yearly) [code = Breast Cancer Scrn (Yearly)] Future Scheduled 2019-01-28 Breast Cancer Scrn [facility] 00:00:00 (Yearly) [code = Breast Cancer Scrn (Yearly)] Future Scheduled 2019-01-28 Breast Cancer Scrn [facility] 00:00:00 (Yearly) [code = Breast Cancer Scrn (Yearly)] Future Scheduled 2019-01-28 Breast Cancer [facility] 00:00:00 (Yearly) [code = Breast Cancer Scrn (Yearly)] Future Scheduled 1971 COVID-19 Vaccine (#1) [facility] 00:00:00 [code = COVID-19 Vaccine (#1)] Future Scheduled 1971 COVID-19 Vaccine (#1) [facility] Test 00:00:00 [code = COVID-19 Vaccine (#1)] Future Scheduled 1971 COVID-19 Vaccine (#1) [facility] Test 00:00:00 [code = COVID-19 Vaccine (#1)] Future Scheduled 1971 COVID-19 Vaccine (#1) [facility] Test 00:00:00 [code = COVID-19 Vaccine (#1)] Future Scheduled 1971 Fluoride Varnish [code [facility] 00:00:00 = Fluoride Varnish] Future Scheduled 1971 Fluoride Varnish [code [facility] 00:00:00 = Fluoride Varnish] Future Scheduled 1971 Fluoride Varnish [code [facility] 00:00:00 = Fluoride Varnish] Future Scheduled 1971 Fluoride Varnish [code [facility] 00:00:00 = Fluoride Varnish] Goal Plan of Care Note [code = 32874-4] Goal Plan of Care Note [code = 26213-5] Goal Plan of Care Note [code = 54228-5] Goal Plan of Care Note [code = 16581-6] Goal Plan of Care Note [code = 38913-8] Goal Plan of Care Note [code = 77353-9] Goal Plan of Care Note [code = 08497-2] Goal Plan of Care Note [code = 27499-3] Goal Plan of Care Note [code = 95346-7] Goal Plan of Care Note [code = 62359-8] Goal Plan of Care Note [code = 27526-5] Goal Plan of Care Note [code = 65882-3] Goal Plan of Care Note [code = 25350-2] Goal Plan of Care Note [code = 08643-2] Goal Plan of Care Note [code = 18354-0] Goal Plan of Care Note [code = 77487-7] Goal Plan of Care Note [code = 39301-8] Goal Plan of Care Note [code = 47777-4] Goal Plan of Care Note [code = 43497-2] Goal Plan of Care Note [code = 56678-4] Goal Plan of Care Note [code = 89221-3] Goal Plan of Care Note [code = 02896-5] Goal Plan of Care Note [code = 86394-2] Goal Plan of Care Note [code = 17108-2] Goal Plan of Care Note [code = 64223-5] Goal Plan of Care Note [code = 38587-2] Goal Plan of Care Note [code = 85040-2] Goal Plan of Care Note [code = 00980-3] Goal Plan of Care Note [code = 19893-4] Goal Plan of Care Note [code = 66050-2] Goal Plan of Care Note [code = 60868-1] Goal Plan of Care Note [code = 98734-3] Goal Plan of Care Note [code = 62847-6] Goal Plan of Care Note [code = 17407-2] Goal Plan of Care Note [code = 31768-5] Goal Plan of Care Note [code = 67006-1] Goal Plan of Care Note [code = 44040-4] Goal Plan of Care Note [code = 64511-1] Goal Plan of Care Note [code = 68315-1] Goal Plan of Care Note [code = 04214-9] Goal Plan of Care Note [code = 32190-1] Goal Plan of Care Note [code = 71172-7] Goal Plan of Care Note [code = 09017-0] Goal Plan of Care Note [code = 61177-6] Goal Plan of Care Note [code = 60709-8] Goal Plan of Care Note [code = 09569-4] Goal Plan of Care Note [code = 12148-6] Goal Plan of Care Note [code = 60753-1] Goal Plan of Care Note [code = 74062-1] Goal Plan of Care Note [code = 66497-6] Goal Plan of Care Note [code = 33292-9] Goal Plan of Care Note [code = 54855-8] Goal Plan of Care Note [code = 12773-5] Goal Plan of Care Note [code = 24921-6] Goal Plan of Care Note [code = 48006-5] Goal Plan of Care Note [code = 77150-0] Goal Plan of Care Note [code = 81973-1] Goal Plan of Care Note [code = 63086-7] Goal Plan of Care Note [code = 95448-0] Goal Plan of Care Note [code = 10223-1] Goal Plan of Care Note [code = 15612-1] Goal Plan of Care Note [code = 07517-1] Goal Plan of Care Note [code = 18066-3] Goal Plan of Care Note [code = 79794-5] Goal Plan of Care Note [code = 67576-5] Goal Plan of Care Note [code = 50089-3] Goal Plan of Care Note [code = 98379-2] Goal Plan of Care Note [code = 13936-5] Goal Plan of Care Note [code = 28067-8] Goal Plan of Care Note [code = 67947-1] Goal Plan of Care Note [code = 79388-5] Goal Plan of Care Note [code = 61658-0] Goal Plan of Care Note [code = 55706-2] Goal Plan of Care Note [code = 82186-3] Goal Plan of Care Note [code = 09594-7] Goal Plan of Care Note [code = 64827-2] Goal Plan of Care Note [code = 97528-3] Goal Plan of Care Note [code = 74095-1] Goal Plan of Care Note [code = 55036-9] Goal Plan of Care Note [code = 24490-6] Goal Plan of Care Note [code = 50165-7] Goal Plan of Care Note [code = 82530-4] Goal Plan of Care Note [code = 56182-4] Goal Plan of Care Note [code = 84827-9] Goal Plan of Care Note [code = 61621-7] Goal Plan of Care Note [code = 06563-0] Goal Plan of Care Note [code = 68590-0] Goal Plan of Care Note [code = 51306-9] Goal Plan of Care Note [code = 68542-7] Goal Plan of Care Note [code = 29152-7] Goal Plan of Care Note [code = 02913-3] Goal Plan of Care Note [code = 77926-0] Goal Plan of Care Note [code = 69122-0] Goal Plan of Care Note [code = 63047-0] Goal Plan of Care Note [code = 67903-8] Goal Plan of Care Note [code = 04620-4] Goal Plan of Care Note [code = 78014-8] Goal Plan of Care Note [code = 98529-8] Goal Plan of Care Note [code = 06771-3] Goal Plan of Care Note [code = 67869-4] Goal Plan of Care Note [code = 46598-6] Goal Plan of Care Note [code = 53737-2] Goal Plan of Care Note [code = 94135-9] Goal Plan of Care Note [code = 43302-7] Goal Plan of Care Note [code = 79511-4] Goal Plan of Care Note [code = 42444-2] Goal Plan of Care Note [code = 76086-1] Goal Plan of Care Note [code = 45510-2] Goal Plan of Care Note [code = 30230-1] Goal Plan of Care Note [code = 26141-6] Goal Plan of Care Note [code = 74569-9] Goal Plan of Care Note [code = 40125-2] Goal Plan of Care Note [code = 12839-5] Goal Plan of Care Note [code = 77733-7] Goal Plan of Care Note [code = 13911-1] Goal Plan of Care Note [code = 19440-5] Goal Plan of Care Note [code = 08950-4] Goal Plan of Care Note [code = 74138-8] Goal Plan of Care Note [code = 39679-6] Goal Plan of Care Note [code = 06664-9] Goal Plan of Care Note [code = 18625-2] Goal Plan of Care Note [code = 82612-5] Goal Plan of Care Note [code = 88911-1] Goal Plan of Care Note [code = 06081-5] Goal Plan of Care Note [code = 25072-2] Goal Plan of Care Note [code = 74854-9] Goal Plan of Care Note [code = 29734-1] Goal Plan of Care Note [code = 80122-6] Goal Plan of Care Note [code = 48432-8] Goal Plan of Care Note [code = 64495-1] Goal Plan of Care Note [code = 64804-7] Goal Plan of Care Note [code = 37018-1] Goal Plan of Care Note [code = 58750-1] Goal Plan of Care Note [code = 94268-7] Goal Plan of Care Note [code = 32712-1] Goal Plan of Care Note [code = 49448-5] Goal Plan of Care Note [code = 25990-5] Goal Plan of Care Note [code = 88576-2] Goal Plan of Care Note [code = 95020-8] Goal Plan of Care Note [code = 74337-0] Goal Plan of Care Note [code = 28107-0] Goal Plan of Care Note [code = 48647-1] Goal Plan of Care Note [code = 44057-8] Goal Plan of Care Note [code = 88560-3] Goal Plan of Care Note [code = 83307-7] Goal Plan of Care Note [code = 75444-2] Goal Plan of Care Note [code = 50014-2] Goal Plan of Care Note [code = 46489-5] Goal Plan of Care Note [code = 29369-9] Goal Plan of Care Note [code = 52610-2] Goal Plan of Care Note [code = 40222-6] Goal Plan of Care Note [code = 49536-4] Goal Plan of Care Note [code = 82598-9] Goal Plan of Care Note [code = 55092-1] Goal Plan of Care Note [code = 75690-5] Goal Plan of Care Note [code = 46202-4] Goal Plan of Care Note [code = 64236-3] Goal Plan of Care Note [code = 60274-9] Goal Plan of Care Note [code = 95765-9] Goal Plan of Care Note [code = 08059-7] Goal Plan of Care Note [code = 72251-2] Goal Plan of Care Note [code = 94211-4] Goal Plan of Care Note [code = 82927-5] Goal Plan of Care Note [code = 25643-8] Goal Plan of Care Note [code = 97251-8] Goal Plan of Care Note [code = 58952-9] Goal Plan of Care Note [code = 35395-0] Goal Plan of Care Note [code = 78192-4] Goal Plan of Care Note [code = 26299-2] Goal Plan of Care Note [code = 44850-1] Goal Plan of Care Note [code = 57629-3] Goal Plan of Care Note [code = 38330-6] Goal Plan of Care Note [code = 76501-7] Goal Plan of Care Note [code = 74366-6] Goal Plan of Care Note [code = 19901-2] Goal Plan of Care Note [code = 47785-6] Goal Plan of Care Note [code = 92711-7] Goal Plan of Care Note [code = 93211-0] Goal Plan of Care Note [code = 10113-5] Goal Plan of Care Note [code = 82789-7] Goal Plan of Care Note [code = 21391-5] Goal Plan of Care Note [code = 67677-7] Goal Plan of Care Note [code = 92081-0] Goal Plan of Care Note [code = 68088-1] Goal Plan of Care Note [code = 32104-0] Goal Plan of Care Note [code = 44052-9] Goal Plan of Care Note [code = 22529-1] Goal Plan of Care Note [code = 75034-0] Goal Plan of Care Note [code = 97294-2] Goal Plan of Care Note [code = 46050-1] Goal Plan of Care Note [code = 09971-6] Goal Plan of Care Note [code = 86124-4] Goal Plan of Care Note [code = 95552-0] Goal Plan of Care Note [code = 85218-5] Goal Plan of Care Note [code = 59157-3] Goal Plan of Care Note [code = 82784-2] Goal Plan of Care Note [code = 08551-9] Goal Plan of Care Note [code = 93525-2] Goal Plan of Care Note [code = 02123-8] Goal Plan of Care Note [code = 57252-3] Goal Plan of Care Note [code = 11589-4] Goal Plan of Care Note [code = 68124-2] Goal Plan of Care Note [code = 28439-7] Goal Plan of Care Note [code = 63894-3] Goal Plan of Care Note [code = 75641-0] Goal Plan of Care Note [code = 28615-6] Goal Plan of Care Note [code = 21848-8] Goal Plan of Care Note [code = 10519-5] Goal Plan of Care Note [code = 64533-0] Goal Plan of Care Note [code = 42560-4] Goal Plan of Care Note [code = 49752-7] Goal Plan of Care Note [code = 75326-5] Goal Plan of Care Note [code = 82460-4] Goal Plan of Care Note [code = 63832-0] Goal Plan of Care Note [code = 41913-2] Goal Plan of Care Note [code = 55791-7] Goal Plan of Care Note [code = 78754-1] Goal Plan of Care Note [code = 41478-7] Goal Plan of Care Note [code = 19069-6] Goal Plan of Care Note [code = 61620-2] Goal Plan of Care Note [code = 72035-9] Goal Plan of Care Note [code = 75924-2] Goal Plan of Care Note [code = 75090-3] Goal Plan of Care Note [code = 25689-1] Goal Plan of Care Note [code = 69257-2] Goal Plan of Care Note [code = 95511-7] Goal Plan of Care Note [code = 81218-2] Goal Plan of Care Note [code = 48081-3] Goal Plan of Care Note [code = 82845-4] Goal Plan of Care Note [code = 40986-6] Goal Plan of Care Note [code = 84624-0] Goal Plan of Care Note [code = 56351-0] Goal Plan of Care Note [code = 21237-9] Goal Plan of Care Note [code = 07466-8] Goal Plan of Care Note [code = 97738-6] Goal Plan of Care Note [code = 19001-4] Goal Plan of Care Note [code = 39197-7] Goal Plan of Care Note [code = 18053-0] Goal Plan of Care Note [code = 71986-5] Goal Plan of Care Note [code = 74417-9] Goal Plan of Care Note [code = 54335-7] Goal Plan of Care Note [code = 39206-0] Goal Plan of Care Note [code = 43692-1] Goal Plan of Care Note [code = 58737-4] Goal Plan of Care Note [code = 26734-6] Goal Plan of Care Note [code = 34898-8] Goal Plan of Care Note [code = 29185-7] Goal Plan of Care Note [code = 37947-2] Goal Plan of Care Note [code = 01080-3] Goal Plan of Care Note [code = 80179-9] Goal Plan of Care Note [code = 76873-0] Goal Plan of Care Note [code = 38320-0] Goal Plan of Care Note [code = 14358-6] Goal Plan of Care Note [code = 74067-3] Goal Plan of Care Note [code = 64316-9] Goal Plan of Care Note [code = 01701-3] Goal Plan of Care Note [code = 93109-4] Goal Plan of Care Note [code = 95578-4] Goal Plan of Care Note [code = 28148-8] Goal Plan of Care Note [code = 49852-0] Goal Plan of Care Note [code = 12361-5] Goal Plan of Care Note [code = 26189-1] Goal Plan of Care Note [code = 42047-0] Goal Plan of Care Note [code = 50921-5] Goal Plan of Care Note [code = 24157-3] Goal Plan of Care Note [code = 37981-7] Goal Plan of Care Note [code = 90475-4] Goal Plan of Care Note [code = 26397-5] Goal Plan of Care Note [code = 63959-4] Goal Plan of Care Note [code = 58237-8] Goal Plan of Care Note [code = 37934-2] Goal Plan of Care Note [code = 21306-7] Goal Plan of Care Note [code = 80736-6] Goal Plan of Care Note [code = 71350-5] Goal Plan of Care Note [code = 29878-7] Goal Plan of Care Note [code = 55478-0] Goal Plan of Care Note [code = 52834-1] Goal Plan of Care Note [code = 64535-2] Goal Plan of Care Note [code = 13708-2] Goal Plan of Care Note [code = 35171-9] Goal Plan of Care Note [code = 49887-2] Goal Plan of Care Note [code = 86482-6] Goal Plan of Care Note [code = 39928-9] Goal Plan of Care Note [code = 87038-8] Goal Plan of Care Note [code = 80125-4] Goal Plan of Care Note [code = 45936-8] Goal Plan of Care Note [code = 16781-9] Goal Plan of Care Note [code = 10350-4] Goal Plan of Care Note [code = 06036-2] Goal Plan of Care Note [code = 58256-4] Goal Plan of Care Note [code = 66024-8] Goal Plan of Care Note [code = 72902-2] Goal Plan of Care Note [code = 73829-4] Goal Plan of Care Note [code = 96475-4] Goal Plan of Care Note [code = 22220-3] Goal Plan of Care Note [code = 27803-7] Goal Plan of Care Note [code = 19858-2] Goal Plan of Care Note [code = 76379-4] Goal Plan of Care Note [code = 65670-3] Goal Plan of Care Note [code = 94974-5] Goal Plan of Care Note [code = 22706-6] Goal Plan of Care Note [code = 62710-7] Goal Plan of Care Note [code = 29109-1] Goal Plan of Care Note [code = 13914-9] Goal Plan of Care Note [code = 84220-6] Encounters Start End Encounter Admission Attending Care Care Encounter Source Date/Time Date/Time Type Type Clinicians Facility Department ID 2021-07-18 Outpatient Laura, STLMLC STLMLC [id number] Common 14:35:12 Peg [id number] [facility] 2021-07-18 Outpatient Laura, STLMLC STLMLC [id number] Common 14:25:43 Peg 03833 [facility] 2021-07-18 Outpatient Laura, STLMLC STLMLC [id number] Common 13:13:17 Peg 10570 [facility] 2021-07-18 Outpatient Laura, STLMLC STLMLC [id number] Common 13:03:23 Peg 43188 [facility] 2021-07-18 Outpatient STURIAHLC STLMLC [id number] Common 13:02:04 34888 [facility] 2022-03-22 2022-03-22 Outpatient AURA CHAVARRIA [id number] 022 Maik 17:44:06 17:44:06 0930 F Isaias 2022-03-21 2022-03-21 Outpatient AURA SFA [id number] 022 Maik 16:56:07 16:56:07 0929 Isaias 2022-03-02 2022-03-02 Outpatient R RADIOLOGY [facility] 01915 3S-20 Univers 00:00:00 00:00:00 [id number] ity of [facility] 2022-02-12 2022-02-12 Outpatient [id number]- [id number] 12q155-5 00:00:00 00:00:00 Visit 2a59-044h t62-000k-6 -9ip6-emu ce5-uvl297 [id number] 2792fa 2022-01-23 2022-01-23 Outpatient ems3b1f1- [id number] ca a7z8z2-3 00:00:00 00:00:00 Visit 59fe-46a2 9fe-46a2-9 -0c19-o33 c92-s589e4 1q655281z 10394j 2022-01-18 2022-01-18 Outpatient 5n3r7m78- [id number] 4b 6i0u66-6 00:00:00 00:00:00 Visit 71k6-76yw 7k0-14qm-b -t25t-698 52c-004a0a a6h9u3t04 8e2c06 2022-01-16 2022-01-16 Outpatient 2lz6lh33- [id number] 0b x2pl26-3 00:00:00 00:00:00 Visit 276a-47e3 76a-47e3-9 -9940-27d 940-27dea8 cu5o1er86 a7ac04 2022-01-11 2022-01-11 Outpatient 6393g871- [id number] 52k069-2 00:00:00 00:00:00 Visit 041e-44b3 41e-44b3-a -i6r6-560 0i4-845g1r e1o6x70i3 3f21f4 2022-01-07 2022-01-07 Outpatient cm83ur90- [id number] ab 86vj39-i 00:00:00 00:00:00 Visit ys84-7fza d14-3zis-x -n09f-l1g 94e-m0i066 [id number] 2719-05-03 2021-10-23 Orders Doctor SURENDRA 1.2.840.114 [id number] Univers 00:00:00 00:00:00 Only Unassigned, ONUR 350.1.13.10 ity of [place] [facility] 4.2.7.2.686 Kei as [phone] [place] [address] [place] 2021-06-25 2021-06-25 ambulatory STLMLC STLMLC [id number] Common 00:00:00 00:00:00 [facility] 2021-06-11 2021-06-11 ambulatory STLMLC STLMLC [id number] Common 00:00:00 00:00:00 [facility] 2021-05-15 2021-05-16 Office JESUSITA [facility] 1.2.840.114 [id number] [facility] 14:33:17 08:40:42 Visit CONSTANTINO AMBULATOR 350.1.13.21 College Y 0.2.7.2.686 of [id number] [facility] 805 e 2021-05-15 2021-05-15 Outpatient WILLIAM MC, SLEH SLEH [id number] [facility] 00:00:00 00:00:00 CONST[facility]INO 2021-05-15 2021-05-15 Outside [facility], [facility] [id number] 00:00:00 00:00:00 Orders [facility] 2021-05-15 2021-05-15 Outside [facility], [facility] [id number] 00:00:00 00:00:00 Orders [facility] 2021-05-03 2021-05-03 ambulatory STLMLC STLC [id number] Common 00:00:00 00:00:00 [facility] 2021-03-14 2021-03-14 Outpatient R MAYANK [facility] [id number] Univers 15:30:00 15:30:00 DYLON munson o f [facility] 2021-03-14 2021-03-14 Outpatient R [facility] [id number] -20 Univers 14:15:00 14:15:00 [id number] ity of [facility] 2021-02-28 2021-02-28 Outpatient STLMLC STLMLC [id number] Common 00:00:00 00:00:00 [facility] 2021-02-13 2021-02-13 Outpatient STLMLC STLMLC [id number] Common 00:00:00 00:00:00 [facility] 2021-01-30 2021-01-30 Nurse Visit, CristopherRmchp Nurse [facility] 1.2 .840.114 [id number] [facility] 15:53:28 16:44:30 Visit Pavithra Churchill 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10 [place] [address].2.7.2.686 Kei as MATERNAL [phone] [facility]ILD [address] [place] [address] 2021-01-30 2021-01-30 Outpatient R [facility] [id number] -20 Univers 15:30:00 15:30:00 [id number] ity [facility] 2021-01-30 2021-01-30 Outpatient R [facility] [id number] Univers 15:30:00 15:30:00 ity [facility] 2021-01-26 2021-01-26 [facility] 1.2.840.114 [id number] Univers 00:00:00 00:00:00 Pavithra Prado 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10 it y of [facility] 4.2.7.2.686 Kei as MATERNAL [id number] [facility] & CHILD [address] [place] [address] 2020-12-06 2020-12-06 Outpatient LE SEGOVIA [facility] [id number] SLE 00:00:00 00:00:00 2020-11-30 2020-11-30 Outpatient STLMLC STLMLC [id number] Common 00:00:00 00:00:00 [facility] 2020-11-23 2020-11-23 Outpatient STLMLC STLMLC [id number] Common 00:00:00 00:00:00 [facility] 2020-11-22 2020-11-22 Outpatient TEJINDER MC [id number] [facility] 14:01:40 15:50:57 [facility]INO [facility] 2020-11-17 2020-11-17 Outpatient STLMLC STLMLC [id number] Common 00:00:00 00:00:00 [facility] 2020-11-01 2020-11-01 Outpatient STLMLC STLMLC [id number] Common 00:00:00 00:00:00 [facility] 2020-10-31 2020-10-31 Outpatient STLMLC STLMLC [id number] Common 00:00:00 00:00:00 [facility] 2020-09-07 2020-09-07 Patient Khanh [facility] 1.2.840.114 [id number] Univers 00:00:00 00:00:00 Outreach Isai DAVALOS 350.1.13.10 i ty [facility] 4.2.7.2.686 Renee COSME [id number] [address] 2020-07-13 2020-07-13 [facility] [id number] [facility]-20 Univers 09:45:00 09:45:00 PAVITHRA [id number] ity [facility] 2020-07-13 2020-07-13 [facility] [id number] Univers 09:45:00 09:45:00 PAVITHRA [facility] 2020-06-29 2020-06-29 Nurse Visit, Kailash Nurse [facility] 1.2 .840.114 [id number] Univers 10:49:28 11:13:01 Visit Pavithra Churchill 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10 ity [facility] 4.2.7.2.686 Kei as MATERNAL [phone] Med ical & CHILD [address] [place] [address] 2020-06-29 2020-06-29 Outpatient R [facility] [id number] -[id number] Univers 10:30:00 10:30:00 [id number] [facility] 2020-06-29 2020-06-29 Outpatient R [facility] [id number] Univers 10:30:00 10:30[facility]-01 2020-06-01 Nurse Visit, Kailash Nurse [facility] 1.2 .840.114 [id number] Univers 10:17:15 10:32:15 Visit Lucrecia 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 10 ity [facility] 4.2.7.2.686 Kei as MATERNAL [phone] [facility] ical & CHILD [address] [place] [address] 2020-06-01 2020-06-01 Outpatient R [facility] [id number] -20 Univers 10:00:00 10:00:00 [id number] ity [facility] 2020-06-01 2020-06-01 Outpatient R [facility] [id number] Univers 10:00:00 10:00:00 ity [facility] 2020-04-04 2020-04-04 Outpatient R KATIE, [facility] 94552 3S-20 Univers 14:30:00 14:30:00 LUCRECIA [id number] ity o f [facility] 2020-04-04 2020-04-04 Outpatient R KATIE, [facility] [id number] Univers 00:00:00 00:00:00 LUCRECIA munson o f [facility] 2020-03-28 2020-03-28 Outpatient R ZHAO [facility] 76586 3S-20 Univers 09:30:00 09:30:00 PAVITHRA [id number] ity [facility] 2020-03-28 2020-03-28 [facility] [id number] Univers 09:30:00 09:30:00 PAVITHRA [facility] 2020-03-09 2020-03-09 Office Abhaylevar, [facility] 1.2.611.485 [id number] Univers 10:31:24 12:02:48 Visit Lucrecia Ivy 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 ity of [facility] [id number] Kei as MATERNAL [phone] Med ical & CHILD [address] [place] [address] 2020-03-09 2020-03-09 [facility] [id number] Univers 10:30:00 10:30:00 LUCRECIA munson o f [facility] 2020-03-09 2020-03-09 Outpatient R [facility] [id number] Univers 10:00:00 10:00:00 [id number] ity [facility] 2020-03-09 2020-03-09 Orders Doctor SURENDRA [id number] Univers 00:00:00 00:00:00 Only Unassigned, ONUR [id number] [facility] [id number] Kei as [phone] [address] 2020-03-02 2020-03-02 Outpatient R [facility] [id number] Univers 08:45:00 08:45:00 ity [facility] 2020-03-02 2020-03-02 Outpatient R [facility] [id number] Univers 08:45:00 08:45:00 ity of [facility] 2020-02-29 2020-02-29 [facility] [id number] Univers 00:00:00 00:00:00 Pavithra Prado 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 it y of [facility] [id number] Kei as MATERNAL [phone] Med ical & CHILD [address] [place] [address] 2019-10-01 2019-10-01 Outpatient R [facility] [id number] Univers 15:00:00 15:00:00 ity of [facility] 2019-09-28 2019-09-28 Nurse Visit, Kailash Nurse [facility] [id number] Univers 09:11:45 09:20:20 Visit Lucrecia 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 it y of REGIONAL [id number] Kei as MATERNAL [id number] Med ical & CHILD [address] [place] [address] 2019-07-05 2019-07-05 Nurse Visit, Kailash Nurse [facility] [id number] Univers 13:10:34 13:50:19 Visit Pavithra Churchill 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 ity of REGIONAL [id number] Kei as MATERNAL [id number] Med ical & CHILD [address] [place] [address] 2018-07-23 2018-07-23 Outpatient [facility] [id number] [place] 00:00:00 00:00:00 [facility] 2018-05-19 2018-05-19 Outpatient [facility] [id number] [place] 11:17:09 11:17:09 [facility] 2018-05-07 2018-05-07 Outpatient [facility] [id number] [place] 10:48:10 10:48:10 [facility] 2018-04-02 2018-04-02 Outpatient [facility] [id number] [place] 12:14:10 12:14:10 [facility] 2018-04-02 2018-04-02 Outpatient [facility] [id number] [place] 10:54:20 10:54:20 [facility] 2018-01-28 2018-01-28 Outpatient [facility] [id number] [place] 13:08:52 13:08:52 [facility] 2018-01-28 2018-01-28 Outpatient [facility] [id number] [place] 00:00:00 00:00:00 [facility] 2018-01-27 2018-01-27 Outpatient [facility] [id number] [place] 00:00:00 00:00:00 [facility] 2018-01-15 2018-01-15 Outpatient [facility] [id number] [place] 00:00:00 00:00:00 [facility] 2018-01-14 2018-01-14 Outpatient [facility] [id number] [place] 12:00:30 12:00:30 [facility] 2018-01-14 2018-01-14 Outpatient [facility] [id number] [place] 10:46:23 10:46:23 [facility] 2017-12-12 2017-12-12 Outpatient [facility] [id number] [place] 10:17:15 10:17:15 [facility] 2017-11-25 2017-11-25 Outpatient [facility] [id number] [place] 00:00:00 00:00:00 [facility] 2017-11-14 2017-11-14 Outpatient [facility] [id number] [place] 00:00:00 00:00:00 [facility] 2017-10-07 2017-10-07 Outpatient [facility] [id number] [place] 00:00:00 00:00:00 [facility] 2017-09-19 2017-09-19 Outpatient [facility] [id number] [place] 00:00:00 00:00:00 [facility] 2017-09-01 2017-09-01 Outpatient [facility] [id number] [place] 00:00:00 00:00:00 [facility] 2017-09-01 2017-09-01 Outpatient [facility] [id number] [place] 00:00:00 00:00:00 [facility] 2017-08-26 2017-08-26 Outpatient [facility] [id number] [place] 00:00:00 00:00:00 [facility] 2017-08-20 2017-08-20 Outpatient [facility] [id number] [place] 07:59:13 07:59:13 [facility] 2017-08-19 2017-08-19 Outpatient [facility] [id number] [place] 10:47:45 10:47:45 [facility] 2017-08-04 2017-08-04 Outpatient [facility] [id number] [place] 10:53:27 10:53:27 [facility] 2017-08-01 2017-08-01 Outpatient [facility] [id number] [place] 15:52:44 15:52:44 [facility] 2017-08-01 2017-08-01 Outpatient [facility] [id number] [place] 14:35:31 14:35:31 [facility] 2017-07-16 2017-07-16 Outpatient [facility] [id number] [place] 08:58:14 08:58:14 [facility] 2017-07-14 2017-07-14 Outpatient [facility] [id number] [place] 09:23:02 09:23:02 [facility] 2017-07-14 2017-07-14 Outpatient [facility] [id number] [place] 08:36:24 08:36:24 [facility] 2017-07-03 2017-07-03 Outpatient [facility] [id number] [place] 07:54:46 07:54:46 [facility] 2017-07-01 2017-07-01 Outpatient [facility] [id number] [place] 09:43:22 09:43:22 [facility] 2017-06-10 2017-06-10 Outpatient [facility] [id number] [place] 12:10:00 12:10:00 [facility] 2017-06-10 2017-06-10 Outpatient [facility] [id number] [place] 10:39:54 10:39:54 [facility] 2017-04-03 2017-04-03 Outpatient [facility] [id number] [place] 11:44:02 11:44:02 [facility] 2017-04-02 2017-04-02 Outpatient [facility] [id number] [place] 10:37:27 10:37:27 [facility] 2017-02-07 2017-02-07 Outpatient [facility] [id number] [place] 14:53:26 14:53:26 [facility] 2017-01-30 2017-01-30 Outpatient [facility] [id number] [place] 08:47:47 08:47:47 Health 2017-01-24 2017-01-24 Outpatient [facility] [id number] [place] 11:12:51 11:12:51 Health 2017-01-20 2017-01-20 Outpatient [facility] [id number] [place] 00:00:00 00:00:00 Health 2017-01-01 2017-01-01 Outpatient [facility] [id number] [place] 00:00:00 00:00:00 Health 2016-12-30 2016-12-30 Outpatient [facility] [id number] [place] 00:00:00 00:00:00 Health Results Test Description Test Time Test Comments Results Result Comments Source THYROID PEROXIDASE AB 2022-01-22 05:34:35 Test Item Value Reference Range Interpretation Comme nts THYROID PEROXIDASE AB (test code = 1 IU/ML <9 UNLESS OTHERWISE INDICATED, ALL 07572) TESTING PERFORM ED ATCLINICAL PATHOLOGY [facility]. [address] [place] [address] ZINC PLATING MACHINE OPERATOR: MIRANDA RODRIGUEZ M.D. [place] NUMBER [id number] [facility] ACCREDITATION N O. [id number] THYROID II PROFILE (TU,T4,FTI,TSH)2022-01-22 03:47:14 Test Item Value Reference Range Interpretation Comments T-UPTAKE (test code = 2817) 30.2 % 24.3-39.0 THYROX. BIND. CAPAC. (test code 1.1 0.8-1.3 = 76874) T4 (THYROXINE) (test code = 9.9 UG/DL 4.5-10.5 9) CORRECTED T4 (FTI) (test code = 9.0 UG/DL 4.2-11.6 2820) TSH, THIRD GENERATION (test code 2.510 UIU/ML 0.400-4.100 = 2821) THYROID II PROFILE (T3U, T4, T7, TSH)2022-01-22 00:00:00 Test Item Value Reference Range Interpretation Comments T-UPTAKE (test code = 2817) 30.2 % THYROX. BIND. CAPAC. (test code 1.1 = 62656) T4 (THYROXINE) (test code = 9.9 UG/DL 2819) CORRECTED T4 (FTI) (test code = 9.0 UG/DL 2820) TSH, THIRD GENERATION (test code 2.510 UIU/ML = 2821) THYROID PEROXIDASE [id number] 00:00:00 Test Item Value Reference Range Interpretation Comments THYROID PEROXIDASE AB (test code = 1 IU/ML 53425) THYROID II PROFILE (T3U, T4, T7, TSH)2022-01-22 00:00:00 Test Item Value Reference Range Interpretation Comments T-UPTAKE (test code = 2817) 30.2 % THYROX. BIND. CAPAC. (test code 1.1 = 53435) T4 (THYROXINE) (test code = 9.9 UG/DL 2819) CORRECTED T4 (FTI) (test code = 9.0 UG/DL 2820) TSH, THIRD GENERATION (test code 2.510 UIU/ML = 2821) THYROID II PROFILE (T3U, T4, T7, TSH)2022-01-22 00:00:00 Test Item Value Reference Range Interpretation Comments T-UPTAKE (test code = 2817) 30.2 % THYROX. BIND. CAPAC. (test code 1.1 = 05384) T4 (THYROXINE) (test code = 9.9 UG/DL 2819) CORRECTED T4 (FTI) (test code = 9.0 UG/DL 2820) TSH, THIRD GENERATION (test code 2.510 UIU/ML = 2821) THYROID PEROXIDASE [id number] 00:00:00 Test Item Value Reference Range Interpretation Comments THYROID PEROXIDASE AB (test code = 1 IU/ML 95755) THYROID PEROXIDASE [id number] 00:00:00 Test Item Value Reference Range Interpretation Comments THYROID PEROXIDASE AB (test code = 1 IU/ML 70669) [id number] 06:19:40 Test Item Value Reference Range Interpretation Comments ESTRADIOL (test 209.0 PG/ML SEE BELOW EXPE CTED VALUES FOR code = 2505) ESTRADIOL FOR F EMALES >=18 YEARS FO LLICULAR . . . . . . . . . . . . . PG/ML 12.4-233.0 OVUL ATION. . . . . . . . . . . . . . PG/ML 41.0-398.0 LUTE AL PHASE . . . . . . . . . . . . PG/ML 22.3-341.0 POST MENOPAUSAL SUPPLEMENTED/NO N-SUPP . PG/ML <138.0/<20.0 NO TE: TO DETERMINE THELMA L VS. SUBNORMAL ESTRA DIOL IN POSTMENOPAUSAL FEMALES, CONSIDER ULTRAS ENSITIVE ESTRADIOL ([facility] ORDER CODE 5678). METHODOL OGY IS TORY JAMES ELECTROCH EMILUMINESCENT IMMUNOASSAY WIT H A LIMIT OF DETECTION OF 17 PG/ML. UNLESS OTHERWISE INDIC ATED, ALL TESTING PERFORM ED [facility]CLIN[facility]. [address] [place] [address] LABORATORY DIRE CTOR: MIRANDA RODRIGUEZ M.D. CLIA NUMBER [id number] [facility] [place]. [id number] FSH + LH [id number] 06:19:40 Test Item Value Reference Range Interpretation Comments FOLLICLE STIM HORMONE 13.7 IU/L SEE BELOW EXPECTED (test code = 2700) VALUES FO R FSH FOR FEMALES >17 YEA RS MALES F EMALES >=18 YEARS 1.5- 12.4 IU/L FOLLICULAR 3.5-12.5 IU/L M ID-CYCLE PEAK 4.7-21.5 I U/L LUTEAL PHASE 1. 7-7.7 IU/L POSTMENOPA USAL 25.8-134.8 IU/L LUTEINIZING HORMONE 15.4 IU/L SEE BELOW EXPECTED (test code = 2776) VALUES FO R LH FOR FEMALES >17 YEA RS MALES FEMALES >=18 YEARS 1.8- 8.6 IU/L FOLLICULAR 2.4- 12.6 IU/L MID-CYCLE PEAK 14.0-95.6 IU/L LUTEAL PHASE 1.0-11.4 IU/L POSTMENOPAUSAL 7.7-58.5 IU/L FSH + LH [id number] 00:00:00 Test Item Value Reference Range Interpretation Comments FOLLICLE STIM HORMONE (test code = 13.7 IU/L 2700) LUTEINIZING HORMONE (test code = 15.4 IU/L 2776) [id number] 00:00:00 Test Item Value Reference Range Interpretation Comments ESTRADIOL (test code = 2505) 209.0 PG/ML [id number] 00:00:00 Test Item Value Reference Range Interpretation Comments ESTRADIOL (test code = 2505) 209.0 PG/ML FSH + LH [id number] 00:00:00 Test Item Value Reference Range Interpretation Comments FOLLICLE STIM HORMONE (test code = 13.7 IU/L 2700) LUTEINIZING HORMONE (test code = 15.4 IU/L 2776) [id number] 00:00:00 Test Item Value Reference Range Interpretation Comments ESTRADIOL (test code = 2505) 209.0 PG/ML [id number] 00:00:00 Test Item Value Reference Range Interpretation Comments ESTRADIOL (test code = 2505) 209.0 PG/ML FSH + LH [id number] 00:00:00 Test Item Value Reference Range Interpretation Comments FOLLICLE STIM HORMONE (test code = 13.7 IU/L 2700) LUTEINIZING HORMONE (test code = 15.4 IU/L 2776) [id number] 00:00:00 Test Item Value Reference Range Interpretation Comments ESTRADIOL (test code = 2505) 209.0 PG/ML [id number] 00:00:00 Test Item Value Reference Range Interpretation Comments ESTRADIOL (test code = 2505) 209.0 PG/ML FSH + LH [id number] 00:00:00 Test Item Value Reference Range Interpretation Comments FOLLICLE STIM HORMONE (test code = 13.7 IU/L 2700) LUTEINIZING HORMONE (test code = 15.4 IU/L 2776) FSH + LH [id number] 00:00:00 Test Item Value Reference Range Interpretation Comments FOLLICLE STIM HORMONE (test code = 13.7 IU/L 2700) LUTEINIZING HORMONE (test code = 15.4 IU/L 2776) [id number] 00:00:00 Test Item Value Reference Range Interpretation Comments ESTRADIOL (test code = 2505) 209.0 PG/ML [id number] 00:00:00 Test Item Value Reference Range Interpretation Comments ESTRADIOL (test code = 2505) 209.0 PG/ML [id number] 00:00:00 Test Item Value Reference Range Interpretation Comments ESTRADIOL (test code = 2505) 209.0 PG/ML [id number] 00:00:00 Test Item Value Reference Range Interpretation Comments ESTRADIOL (test code = 2505) 209.0 PG/ML FSH + LH [id number] 00:00:00 Test Item Value Reference Range Interpretation Comments FOLLICLE STIM HORMONE (test code = 13.7 IU/L 2700) LUTEINIZING HORMONE (test code = 15.4 IU/L 2776) FSH + LH [id number] 00:00:00 Test Item Value Reference Range Interpretation Comments FOLLICLE STIM HORMONE (test code = 13.7 IU/L 2700) LUTEINIZING HORMONE (test code = 15.4 IU/L 2776) [id number] 00:00:00 Test Item Value Reference Range Interpretation Comments ESTRADIOL (test code = 2505) 209.0 PG/ML [id number] 00:00:00 Test Item Value Reference Range Interpretation Comments ESTRADIOL (test code = 2505) 209.0 PG/ML [id number] 00:00:00 Test Item Value Reference Range Interpretation Comments ESTRADIOL (test code = 2505) 209.0 PG/ML LIPID [id number] 00:12:17 Test Item Value Reference Range Interpretation [...] MOREINFORMATION , SEE CLIENT ANNOUNCE MENT AT [email or web address] RISK RATIO LDL/HDL 2.89 RATIO <3.22 UNLESS O THERWISE (test code = 2238) INDICATED , ALL TESTING PERFORMED [facility], [place] [address] [place] [address] [facility] DIRECTOR: Dimitris GONZALEZ NUMBER [id number] CAP ACCREDITATION N O. [id number] LIPID [id number] 00:00:00 Test Item Value Reference Range Interpretation Comments CHOLESTEROL (test code = 2210) 171 MG/DL TRIGLYCERIDES (test code = 2232) 157 MG/DL HDL CHOLESTEROL (test code = 2220) 37 MG/DL CALC LDL CHOL (test code = 2237) 107 MG/DL RISK RATIO LDL/HDL (test code = 2.89 RATIO 2238) LIPID [id number] 00:00:00 Test Item Value Reference Range Interpretation Comments CHOLESTEROL (test code = 2210) 171 MG/DL TRIGLYCERIDES (test code = 2232) 157 MG/DL HDL CHOLESTEROL (test code = 2220) 37 MG/DL CALC LDL CHOL (test code = 2237) 107 MG/DL RISK RATIO LDL/HDL (test code = 2.89 RATIO 2238) LIPID [id number] 00:00:00 Test Item Value Reference Range Interpretation Comments CHOLESTEROL (test code = 2210) 171 MG/DL TRIGLYCERIDES (test code = 2232) 157 MG/DL HDL CHOLESTEROL (test code = 2220) 37 MG/DL CALC LDL CHOL (test code = 2237) 107 MG/DL RISK RATIO LDL/HDL (test code = 2.89 RATIO 2238) LIPID [id number] 00:00:00 Test Item Value Reference Range Interpretation Comments CHOLESTEROL (test code = 2210) 171 MG/DL TRIGLYCERIDES (test code = 2232) 157 MG/DL HDL CHOLESTEROL (test code = 2220) 37 MG/DL CALC LDL CHOL (test code = 2237) 107 MG/DL RISK RATIO LDL/HDL (test code = 2.89 RATIO 2238) LIPID [id number] 00:00:00 Test Item Value Reference Range Interpretation Comments CHOLESTEROL (test code = 2210) 171 MG/DL TRIGLYCERIDES (test code = 2232) 157 MG/DL HDL CHOLESTEROL (test code = 2220) 37 MG/DL CALC LDL CHOL (test code = 2237) 107 MG/DL RISK RATIO LDL/HDL (test code = 2.89 RATIO 2238) LIPID [id number] 00:00:00 Test Item Value Reference Range Interpretation Comments CHOLESTEROL (test code = 2210) 171 MG/DL TRIGLYCERIDES (test code = 2232) 157 MG/DL HDL CHOLESTEROL (test code = 2220) 37 MG/DL CALC LDL CHOL (test code = 2237) 107 MG/DL RISK RATIO LDL/HDL (test code = 2.89 RATIO 2238) LIPID [id number] 00:00:00 Test Item Value Reference Range Interpretation Comments CHOLESTEROL (test code = 2210) 171 MG/DL TRIGLYCERIDES (test code = 2232) 157 MG/DL HDL CHOLESTEROL (test code = 2220) 37 MG/DL CALC LDL CHOL (test code = 2237) 107 MG/DL RISK RATIO LDL/HDL (test code = 2.89 RATIO 2238) CBC W/AUTO DIFF WITH [id number] 04:06:10 Test Item Value Reference Range Interpretation [...] = 1036) NUCLEATED RBCS (test 0.0 /100 WBC'S See_Comment [Aut omated code = 1065) message] The sy stem which generated this [...] RBCS 0.00 K/UL 0.00-0.11 (test code = 13255) CBC W/AUTO [id number] 00:00:00 Test Item Value Reference Range Interpretation Comments WBC (test code = 1001) 6.7 K/UL RBC (test code = 1002) 4.27 M/UL HEMOGLOBIN (test code = 1003) 12.8 G/DL HEMATOCRIT (test code = 1004) 36.7 % MCV (test code = 1005) 85.9 fL MCH (test code = 1006) 30.0 PG MCHC (test code = 1007) 34.9 G/DL RDW (test code = 1038) 14.6 % NEUTROPHILS (test code = 1008) 60.7 % LYMPHOCYTES (test code = 1010) 29.5 % MONOCYTES (test code = 1011) 6.8 % EOSINOPHILS (test code = 1012) 1.9 % BASOPHILS (test code = 1013) 1.0 % IMMATURE GRANULOCYTES (test 0.1 % code = 1036) NUCLEATED RBCS (test code = 0.0 /100WBC'S 1065) PLATELET COUNT (test code = 205 K/UL 1015) ABSOLUTE NEUTROPHILS (test code 4.07 K/UL = 1066) ABSOLUTE LYMPHOCYTES (test code 1.98 K/UL = 1067) ABSOLUTE MONOCYTES (test code = 0.46 K/UL 1068) ABSOLUTE EOSINOPHILS (test code 0.13 K/UL = 1040) ABSOLUTE BASOPHILS (test code = 0.07 K/UL 1069) ABS IMMATURE GRANULOCYTES (test 0.01 K/UL code = 1020) ABS NUCLEATED RBCS (test code = 0.00 K/UL 44823) CBC W/AUTO [id number] 00:00:00 Test Item Value Reference Range Interpretation Comments WBC (test code = 1001) 6.7 K/UL RBC (test code = 1002) 4.27 M/UL HEMOGLOBIN (test code = 1003) 12.8 G/DL HEMATOCRIT (test code = 1004) 36.7 % MCV (test code = 1005) 85.9 fL MCH (test code = 1006) 30.0 PG MCHC (test code = 1007) 34.9 G/DL RDW (test code = 1038) 14.6 % NEUTROPHILS (test code = 1008) 60.7 % LYMPHOCYTES (test code = 1010) 29.5 % MONOCYTES (test code = 1011) 6.8 % EOSINOPHILS (test code = 1012) 1.9 % BASOPHILS (test code = 1013) 1.0 % IMMATURE GRANULOCYTES (test 0.1 % code = 1036) NUCLEATED RBCS (test code = 0.0 /100WBC'S 1065) PLATELET COUNT (test code = 205 K/UL 1015) ABSOLUTE NEUTROPHILS (test code 4.07 K/UL = 1066) ABSOLUTE LYMPHOCYTES (test code 1.98 K/UL = 1067) ABSOLUTE MONOCYTES (test code = 0.46 K/UL 1068) ABSOLUTE EOSINOPHILS (test code 0.13 K/UL = 1040) ABSOLUTE BASOPHILS (test code = 0.07 K/UL 1069) ABS IMMATURE GRANULOCYTES (test 0.01 K/UL code = 1020) ABS NUCLEATED RBCS (test code = 0.00 K/UL 35070) CBC W/AUTO [id number] 00:00:00 Test Item Value Reference Range Interpretation Comments WBC (test code = 1001) 6.7 K/UL RBC (test code = 1002) 4.27 M/UL HEMOGLOBIN (test code = 1003) 12.8 G/DL HEMATOCRIT (test code = 1004) 36.7 % MCV (test code = 1005) 85.9 fL MCH (test code = 1006) 30.0 PG MCHC (test code = 1007) 34.9 G/DL RDW (test code = 1038) 14.6 % NEUTROPHILS (test code = 1008) 60.7 % LYMPHOCYTES (test code = 1010) 29.5 % MONOCYTES (test code = 1011) 6.8 % EOSINOPHILS (test code = 1012) 1.9 % BASOPHILS (test code = 1013) 1.0 % IMMATURE GRANULOCYTES (test 0.1 % code = 1036) NUCLEATED RBCS (test code = 0.0 /100WBC'S 1065) PLATELET COUNT (test code = 205 K/UL 1015) ABSOLUTE NEUTROPHILS (test code 4.07 K/UL = 1066) ABSOLUTE LYMPHOCYTES (test code 1.98 K/UL = 1067) ABSOLUTE MONOCYTES (test code = 0.46 K/UL 1068) ABSOLUTE EOSINOPHILS (test code 0.13 K/UL = 1040) ABSOLUTE BASOPHILS (test code = 0.07 K/UL 1069) ABS IMMATURE GRANULOCYTES (test 0.01 K/UL code = 1020) ABS NUCLEATED RBCS (test code = 0.00 K/UL 16277) CBC W/AUTO [id number] 00:00:00 Test Item Value Reference Range Interpretation Comments WBC (test code = 1001) 6.7 K/UL RBC (test code = 1002) 4.27 M/UL HEMOGLOBIN (test code = 1003) 12.8 G/DL HEMATOCRIT (test code = 1004) 36.7 % MCV (test code = 1005) 85.9 fL MCH (test code = 1006) 30.0 PG MCHC (test code = 1007) 34.9 G/DL RDW (test code = 1038) 14.6 % NEUTROPHILS (test code = 1008) 60.7 % LYMPHOCYTES (test code = 1010) 29.5 % MONOCYTES (test code = 1011) 6.8 % EOSINOPHILS (test code = 1012) 1.9 % BASOPHILS (test code = 1013) 1.0 % IMMATURE GRANULOCYTES (test 0.1 % code = 1036) NUCLEATED RBCS (test code = 0.0 /100WBC'S 1065) PLATELET COUNT (test code = 205 K/UL 1015) ABSOLUTE NEUTROPHILS (test code 4.07 K/UL = 1066) ABSOLUTE LYMPHOCYTES (test code 1.98 K/UL = 1067) ABSOLUTE MONOCYTES (test code = 0.46 K/UL 1068) ABSOLUTE EOSINOPHILS (test code 0.13 K/UL = 1040) ABSOLUTE BASOPHILS (test code = 0.07 K/UL 1069) ABS IMMATURE GRANULOCYTES (test 0.01 K/UL code = 1020) ABS NUCLEATED RBCS (test code = 0.00 K/UL 19126) CBC W/AUTO [id number] 00:00:00 Test Item Value Reference Range Interpretation Comments WBC (test code = 1001) 6.7 K/UL RBC (test code = 1002) 4.27 M/UL HEMOGLOBIN (test code = 1003) 12.8 G/DL HEMATOCRIT (test code = 1004) 36.7 % MCV (test code = 1005) 85.9 fL MCH (test code = 1006) 30.0 PG MCHC (test code = 1007) 34.9 G/DL RDW (test code = 1038) 14.6 % NEUTROPHILS (test code = 1008) 60.7 % LYMPHOCYTES (test code = 1010) 29.5 % MONOCYTES (test code = 1011) 6.8 % EOSINOPHILS (test code = 1012) 1.9 % BASOPHILS (test code = 1013) 1.0 % IMMATURE GRANULOCYTES (test 0.1 % code = 1036) NUCLEATED RBCS (test code = 0.0 /100WBC'S 1065) PLATELET COUNT (test code = 205 K/UL 1015) ABSOLUTE NEUTROPHILS (test code 4.07 K/UL = 1066) ABSOLUTE LYMPHOCYTES (test code 1.98 K/UL = 1067) ABSOLUTE MONOCYTES (test code = 0.46 K/UL 1068) ABSOLUTE EOSINOPHILS (test code 0.13 K/UL = 1040) ABSOLUTE BASOPHILS (test code = 0.07 K/UL 1069) ABS IMMATURE GRANULOCYTES (test 0.01 K/UL code = 1020) ABS NUCLEATED RBCS (test code = 0.00 K/UL 88245) CBC W/AUTO [id number] 00:00:00 Test Item Value Reference Range Interpretation Comments WBC (test code = 1001) 6.7 K/UL RBC (test code = 1002) 4.27 M/UL HEMOGLOBIN (test code = 1003) 12.8 G/DL HEMATOCRIT (test code = 1004) 36.7 % MCV (test code = 1005) 85.9 fL MCH (test code = 1006) 30.0 PG MCHC (test code = 1007) 34.9 G/DL RDW (test code = 1038) 14.6 % NEUTROPHILS (test code = 1008) 60.7 % LYMPHOCYTES (test code = 1010) 29.5 % MONOCYTES (test code = 1011) 6.8 % EOSINOPHILS (test code = 1012) 1.9 % BASOPHILS (test code = 1013) 1.0 % IMMATURE GRANULOCYTES (test 0.1 % code = 1036) NUCLEATED RBCS (test code = 0.0 /100WBC'S 1065) PLATELET COUNT (test code = 205 K/UL 1015) ABSOLUTE NEUTROPHILS (test code 4.07 K/UL = 1066) ABSOLUTE LYMPHOCYTES (test code 1.98 K/UL = 1067) ABSOLUTE MONOCYTES (test code = 0.46 K/UL 1068) ABSOLUTE EOSINOPHILS (test code 0.13 K/UL = 1040) ABSOLUTE BASOPHILS (test code = 0.07 K/UL 1069) ABS IMMATURE GRANULOCYTES (test 0.01 K/UL code = 1020) ABS NUCLEATED RBCS (test code = 0.00 K/UL 59255) CBC W/AUTO [id number] 00:00:00 Test Item Value Reference Range Interpretation Comments WBC (test code = 1001) 6.7 K/UL RBC (test code = 1002) 4.27 M/UL HEMOGLOBIN (test code = 1003) 12.8 G/DL HEMATOCRIT (test code = 1004) 36.7 % MCV (test code = 1005) 85.9 fL MCH (test code = 1006) 30.0 PG MCHC (test code = 1007) 34.9 G/DL RDW (test code = 1038) 14.6 % NEUTROPHILS (test code = 1008) 60.7 % LYMPHOCYTES (test code = 1010) 29.5 % MONOCYTES (test code = 1011) 6.8 % EOSINOPHILS (test code = 1012) 1.9 % BASOPHILS (test code = 1013) 1.0 % IMMATURE GRANULOCYTES (test 0.1 % code = 1036) NUCLEATED RBCS (test code = 0.0 /100WBC'S 1065) PLATELET COUNT (test code = 205 K/UL 1015) ABSOLUTE NEUTROPHILS (test code 4.07 K/UL = 1066) ABSOLUTE LYMPHOCYTES (test code 1.98 K/UL = 1067) ABSOLUTE MONOCYTES (test code = 0.46 K/UL 1068) ABSOLUTE EOSINOPHILS (test code 0.13 K/UL = 1040) ABSOLUTE BASOPHILS (test code = 0.07 K/UL 1069) ABS IMMATURE GRANULOCYTES (test 0.01 K/UL code = 1020) ABS NUCLEATED RBCS (test code = 0.00 K/UL 39252) CBC W/AUTO [id number] 00:00:00 Test Item Value Reference Range Interpretation Comments WBC (test code = 1001) 6.7 K/UL RBC (test code = 1002) 4.27 M/UL HEMOGLOBIN (test code = 1003) 12.8 G/DL HEMATOCRIT (test code = 1004) 36.7 % MCV (test code = 1005) 85.9 fL MCH (test code = 1006) 30.0 PG MCHC (test code = 1007) 34.9 G/DL RDW (test code = 1038) 14.6 % NEUTROPHILS (test code = 1008) 60.7 % LYMPHOCYTES (test code = 1010) 29.5 % MONOCYTES (test code = 1011) 6.8 % EOSINOPHILS (test code = 1012) 1.9 % BASOPHILS (test code = 1013) 1.0 % IMMATURE GRANULOCYTES (test 0.1 % code = 1036) NUCLEATED RBCS (test code = 0.0 /100WBC'S 1065) PLATELET COUNT (test code = 205 K/UL 1015) ABSOLUTE NEUTROPHILS (test code 4.07 K/UL = 1066) ABSOLUTE LYMPHOCYTES (test code 1.98 K/UL = 1067) ABSOLUTE MONOCYTES (test code = 0.46 K/UL 1068) ABSOLUTE EOSINOPHILS (test code 0.13 K/UL = 1040) ABSOLUTE BASOPHILS (test code = 0.07 K/UL 1069) ABS IMMATURE GRANULOCYTES (test 0.01 K/UL code = 1020) ABS NUCLEATED RBCS (test code = 0.00 K/UL 12508) CBC W/AUTO [id number] 00:00:00 Test Item Value Reference Range Interpretation Comments WBC (test code = 1001) 6.7 K/UL RBC (test code = 1002) 4.27 M/UL HEMOGLOBIN (test code = 1003) 12.8 G/DL HEMATOCRIT (test code = 1004) 36.7 % MCV (test code = 1005) 85.9 fL MCH (test code = 1006) 30.0 PG MCHC (test code = 1007) 34.9 G/DL RDW (test code = 1038) 14.6 % NEUTROPHILS (test code = 1008) 60.7 % LYMPHOCYTES (test code = 1010) 29.5 % MONOCYTES (test code = 1011) 6.8 % EOSINOPHILS (test code = 1012) 1.9 % BASOPHILS (test code = 1013) 1.0 % IMMATURE GRANULOCYTES (test 0.1 % code = 1036) NUCLEATED RBCS (test code = 0.0 /100WBC'S 1065) PLATELET COUNT (test code = 205 K/UL 1015) ABSOLUTE NEUTROPHILS (test code 4.07 K/UL = 1066) ABSOLUTE LYMPHOCYTES (test code 1.98 K/UL = 1067) ABSOLUTE MONOCYTES (test code = 0.46 K/UL 1068) ABSOLUTE EOSINOPHILS (test code 0.13 K/UL = 1040) ABSOLUTE BASOPHILS (test code = 0.07 K/UL 1069) ABS IMMATURE GRANULOCYTES (test 0.01 K/UL code = 1020) ABS NUCLEATED RBCS (test code = 0.00 K/UL 08754) CBC W/AUTO [id number] 00:00:00 Test Item Value Reference Range Interpretation Comments WBC (test code = 1001) 6.7 K/UL RBC (test code = 1002) 4.27 M/UL HEMOGLOBIN (test code = 1003) 12.8 G/DL HEMATOCRIT (test code = 1004) 36.7 % MCV (test code = 1005) 85.9 fL MCH (test code = 1006) 30.0 PG MCHC (test code = 1007) 34.9 G/DL RDW (test code = 1038) 14.6 % NEUTROPHILS (test code = 1008) 60.7 % LYMPHOCYTES (test code = 1010) 29.5 % MONOCYTES (test code = 1011) 6.8 % EOSINOPHILS (test code = 1012) 1.9 % BASOPHILS (test code = 1013) 1.0 % IMMATURE GRANULOCYTES (test 0.1 % code = 1036) NUCLEATED RBCS (test code = 0.0 /100WBC'S 1065) PLATELET COUNT (test code = 205 K/UL 1015) ABSOLUTE NEUTROPHILS (test code 4.07 K/UL = 1066) ABSOLUTE LYMPHOCYTES (test code 1.98 K/UL = 1067) ABSOLUTE MONOCYTES (test code = 0.46 K/UL 1068) ABSOLUTE EOSINOPHILS (test code 0.13 K/UL = 1040) ABSOLUTE BASOPHILS (test code = 0.07 K/UL 1069) ABS IMMATURE GRANULOCYTES (test 0.01 K/UL code = 1020) ABS NUCLEATED RBCS (test code = 0.00 K/UL 63940) CBC W/AUTO [id number] 00:00:00 Test Item Value Reference Range Interpretation Comments WBC (test code = 1001) 6.7 K/UL RBC (test code = 1002) 4.27 M/UL HEMOGLOBIN (test code = 1003) 12.8 G/DL HEMATOCRIT (test code = 1004) 36.7 % MCV (test code = 1005) 85.9 fL MCH (test code = 1006) 30.0 PG MCHC (test code = 1007) 34.9 G/DL RDW (test code = 1038) 14.6 % NEUTROPHILS (test code = 1008) 60.7 % LYMPHOCYTES (test code = 1010) 29.5 % MONOCYTES (test code = 1011) 6.8 % EOSINOPHILS (test code = 1012) 1.9 % BASOPHILS (test code = 1013) 1.0 % IMMATURE GRANULOCYTES (test 0.1 % code = 1036) NUCLEATED RBCS (test code = 0.0 /100WBC'S 1065) PLATELET COUNT (test code = 205 K/UL 1015) ABSOLUTE NEUTROPHILS (test code 4.07 K/UL = 1066) ABSOLUTE LYMPHOCYTES (test code 1.98 K/UL = 1067) ABSOLUTE MONOCYTES (test code = 0.46 K/UL 1068) ABSOLUTE EOSINOPHILS (test code 0.13 K/UL = 1040) ABSOLUTE BASOPHILS (test code = 0.07 K/UL 1069) ABS IMMATURE GRANULOCYTES (test 0.01 K/UL code = 1020) ABS NUCLEATED RBCS (test code = 0.00 K/UL 52819) CBC W/AUTO [id number] 00:00:00 Test Item Value Reference Range Interpretation Comments WBC (test code = 1001) 6.7 K/UL RBC (test code = 1002) 4.27 M/UL HEMOGLOBIN (test code = 1003) 12.8 G/DL HEMATOCRIT (test code = 1004) 36.7 % MCV (test code = 1005) 85.9 fL MCH (test code = 1006) 30.0 PG MCHC (test code = 1007) 34.9 G/DL RDW (test code = 1038) 14.6 % NEUTROPHILS (test code = 1008) 60.7 % LYMPHOCYTES (test code = 1010) 29.5 % MONOCYTES (test code = 1011) 6.8 % EOSINOPHILS (test code = 1012) 1.9 % BASOPHILS (test code = 1013) 1.0 % IMMATURE GRANULOCYTES (test 0.1 % code = 1036) NUCLEATED RBCS (test code = 0.0 /100WBC'S 1065) PLATELET COUNT (test code = 205 K/UL 1015) ABSOLUTE NEUTROPHILS (test code 4.07 K/UL = 1066) ABSOLUTE LYMPHOCYTES (test code 1.98 K/UL = 1067) ABSOLUTE MONOCYTES (test code = 0.46 K/UL 1068) ABSOLUTE EOSINOPHILS (test code 0.13 K/UL = 1040) ABSOLUTE BASOPHILS (test code = 0.07 K/UL 1069) ABS IMMATURE GRANULOCYTES (test 0.01 K/UL code = 1020) ABS NUCLEATED RBCS (test code = 0.00 K/UL 86117) CBC W/AUTO [id number] 00:00:00 Test Item Value Reference Range Interpretation Comments WBC (test code = 1001) 6.7 K/UL RBC (test code = 1002) 4.27 M/UL HEMOGLOBIN (test code = 1003) 12.8 G/DL HEMATOCRIT (test code = 1004) 36.7 % MCV (test code = 1005) 85.9 fL MCH (test code = 1006) 30.0 PG MCHC (test code = 1007) 34.9 G/DL RDW (test code = 1038) 14.6 % NEUTROPHILS (test code = 1008) 60.7 % LYMPHOCYTES (test code = 1010) 29.5 % MONOCYTES (test code = 1011) 6.8 % EOSINOPHILS (test code = 1012) 1.9 % BASOPHILS (test code = 1013) 1.0 % IMMATURE GRANULOCYTES (test 0.1 % code = 1036) NUCLEATED RBCS (test code = 0.0 /100WBC'S 1065) PLATELET COUNT (test code = 205 K/UL 1015) ABSOLUTE NEUTROPHILS (test code 4.07 K/UL = 1066) ABSOLUTE LYMPHOCYTES (test code 1.98 K/UL = 1067) ABSOLUTE MONOCYTES (test code = 0.46 K/UL 1068) ABSOLUTE EOSINOPHILS (test code 0.13 K/UL = 1040) ABSOLUTE BASOPHILS (test code = 0.07 K/UL 1069) ABS IMMATURE GRANULOCYTES (test 0.01 K/UL code = 1020) ABS NUCLEATED RBCS (test code = 0.00 K/UL 34464) VITAMIN D, 25 [id number] 04:03:26 Test Item Value Reference Range Interpretation Comments VITAMIN D, 25 OH 13 NG/ML SEE BELOW L NOTE: 25-H YDROXYVITAMIN D (test code = 4958) ASSAY INC LUDES 25-HYDROXYVITAM IN D2 AND D3. METHODOLOGY IS CHEMILUMINESCEN T IMMUNOASSAY. INTERPRETIVE RA NGES PEDIATRIC (<17 YEARS) . . . . . . . . . . . NG/ML 20-100ADULT: IN SUFFICIENT . . . . . . . . . . . . . . NG/ML <20 SUBOP TIMAL . . . . . . . . . . . . . . . NG/ML 20-29 OPT IMAL . . . . . . . . . . . . . . . . . NG/ML 30-100 COMPREHENSIVE METABOLIC [id number] 02:55:12 Test Item Value Reference Range Interpretation Comments GLUCOSE (test code = 105 MG/DL 70-99 H 2216) BUN (test code = 16 MG/DL 6-20 2207) CREATININE (test 0.84 MG/DL 0.60-1.30 code = 2213) eGFR (2020 CKD-EPI) 85 ML/MIN/1.73 >60 (test code = 82408) CALC BUN/CREAT (test 19 RATIO 6-28 code = 2235) SODIUM (test code = 141 MEQ/L 967-747 0404) POTASSIUM (test code 3.8 MEQ/L 3.5-5.4 = 2227) CHLORIDE (test code 104 MEQ/L 95-107 = 2214) CARBON DIOXIDE (test 27 MEQ/L 19-31 code [...] AST (test code = 25 U/L 9-40 2217) ALT (test code = 34 U/L 5-40 2218) HEMOGLOBIN [id number] 02:39:22 Test Item Value Reference Range Interpretation Comments HEMOGLOBIN A1c (test 5.3 % 4.2-5.6 UNLESS OTHERWISE code = 31621) INDICATED, ALL TESTING PERFORMED ATCLI NICAL PATHOLOGY [facility] [employer], [employer]. [address] [place] [address] [facility] DIRECTOR: MIRANDA RODRIGUEZ M.D. CLIA NUMBER [id number] [facility] ACCREDITATION N O. [id number] VITAMIN D, 25 [id number] 00:00:00 Test Item Value Reference Range Interpretation Comments VITAMIN D, 25 OH (test code = 4958) 13 NG/ML COMPREHENSIVE METABOLIC [id number] 00:00:00 Test Item Value Reference Range Interpretation Comments GLUCOSE (test code = 2217) 105 MG/DL BUN (test code = 2208) 16 MG/DL CREATININE (test code = 2214) 0.84 MG/DL eGFR (2020 CKD-EPI) (test code 85 ML/MIN/1.73 = 40127) CALC BUN/CREAT (test code = 19 RATIO 2235) SODIUM (test code = 2231) 141 MEQ/L POTASSIUM (test code = 2228) 3.8 MEQ/L CHLORIDE (test code = 2215) 104 MEQ/L CARBON DIOXIDE (test code = 27 MEQ/L 2205) CALCIUM (test code = 2209) 9.7 MG/DL PROTEIN, TOTAL (test code = 7.9 G/DL 2228) ALBUMIN (test code = 2201) 4.5 G/DL CALC GLOBULIN (test code = 3.4 G/DL 2240) CALC A/G RATIO (test code = 1.3 RATIO 2234) BILIRUBIN, TOTAL (test code = 0.4 MG/DL 2206) ALKALINE PHOSPHATASE (test 81 U/L code = 2204) AST (test code = 2218) 25 U/L ALT (test code = 2219) 34 U/L HEMOGLOBIN [id number] 00:00:00 Test Item Value Reference Range Interpretation Comments HEMOGLOBIN A1c (test code = 01618) 5.3 % HEMOGLOBIN [id number] 00:00:00 Test Item Value Reference Range Interpretation Comments HEMOGLOBIN A1c (test code = 01142) 5.3 % VITAMIN D, 25 [id number] 00:00:00 Test Item Value Reference Range Interpretation Comments VITAMIN D, 25 OH (test code = 4958) 13 NG/ML COMPREHENSIVE METABOLIC [id number] 00:00:00 Test Item Value Reference Range Interpretation Comments GLUCOSE (test code = 2217) 105 MG/DL BUN (test code = 2208) 16 MG/DL CREATININE (test code = 2214) 0.84 MG/DL eGFR (2020 CKD-EPI) (test code 85 ML/MIN/1.73 = 99874) CALC BUN/CREAT (test code = 19 RATIO 2235) SODIUM (test code = 2231) 141 MEQ/L POTASSIUM (test code = 2228) 3.8 MEQ/L CHLORIDE (test code = 2215) 104 MEQ/L CARBON DIOXIDE (test code = 27 MEQ/L 2205) CALCIUM (test code = 2209) 9.7 MG/DL PROTEIN, TOTAL (test code = 7.9 G/DL 2228) ALBUMIN (test code = 2201) 4.5 G/DL CALC GLOBULIN (test code = 3.4 G/DL 2240) CALC A/G RATIO (test code = 1.3 RATIO 4) BILIRUBIN, TOTAL (test code = 0.4 MG/DL 2206) ALKALINE PHOSPHATASE (test 81 U/L code = 2204) AST (test code = 2218) 25 U/L ALT (test code = 2219) 34 U/L HEMOGLOBIN [id number] 00:00:00 Test Item Value Reference Range Interpretation Comments HEMOGLOBIN A1c (test code = 54490) 5.3 % HEMOGLOBIN [id number] 00:00:00 Test Item Value Reference Range Interpretation Comments HEMOGLOBIN A1c (test code = 70691) 5.3 % VITAMIN D, 25 [id number] 00:00:00 Test Item Value Reference Range Interpretation Comments VITAMIN D, 25 OH (test code = 4958) 13 NG/ML COMPREHENSIVE METABOLIC [id number] 00:00:00 Test Item Value Reference Range Interpretation Comments GLUCOSE (test code = 2217) 105 MG/DL BUN (test code = 2208) 16 MG/DL CREATININE (test code = 2214) 0.84 MG/DL eGFR (2020 CKD-EPI) (test code 85 ML/MIN/1.73 = 28465) CALC BUN/CREAT (test code = 19 RATIO 223) SODIUM (test code = 2231) 141 MEQ/L POTASSIUM (test code = 2228) 3.8 MEQ/L CHLORIDE (test code = 2215) 104 MEQ/L CARBON DIOXIDE (test code = 27 MEQ/L 2205) CALCIUM (test code = 2209) 9.7 MG/DL PROTEIN, TOTAL (test code = 7.9 G/DL 2228) ALBUMIN (test code = 2201) 4.5 G/DL CALC GLOBULIN (test code = 3.4 G/DL 2239) CALC A/G RATIO (test code = 1.3 RATIO 2233) BILIRUBIN, TOTAL (test code = 0.4 MG/DL 2206) ALKALINE PHOSPHATASE (test 81 U/L code = 2204) AST (test code = 221) 25 U/L ALT (test code = 2219) 34 U/L HEMOGLOBIN [id number] 00:00:00 Test Item Value Reference Range Interpretation Comments HEMOGLOBIN A1c (test code = 07093) 5.3 % HEMOGLOBIN [id number] 00:00:00 Test Item Value Reference Range Interpretation Comments HEMOGLOBIN A1c (test code = 83848) 5.3 % VITAMIN D, 25 [id number] 00:00:00 Test Item Value Reference Range Interpretation Comments VITAMIN D, 25 OH (test code = 4958) 13 NG/ML VITAMIN D, 25 [id number] 00:00:00 Test Item Value Reference Range Interpretation Comments VITAMIN D, 25 OH (test code = 4958) 13 NG/ML COMPREHENSIVE METABOLIC [id number] 00:00:00 Test Item Value Reference Range Interpretation Comments GLUCOSE (test code = 2217) 105 MG/DL BUN (test code = 2208) 16 MG/DL CREATININE (test code = 2214) 0.84 MG/DL eGFR (2020 CKD-EPI) (test code 85 ML/MIN/1.73 = 77310) CALC BUN/CREAT (test code = 19 RATIO 2234) SODIUM (test code = 2231) 141 MEQ/L POTASSIUM (test code = 2228) 3.8 MEQ/L CHLORIDE (test code = 2215) 104 MEQ/L CARBON DIOXIDE (test code = 27 MEQ/L 2205) CALCIUM (test code = 2209) 9.7 MG/DL PROTEIN, TOTAL (test code = 7.9 G/DL 2228) ALBUMIN (test code = 2201) 4.5 G/DL CALC GLOBULIN (test code = 3.4 G/DL 2240) CALC A/G RATIO (test code = 1.3 RATIO 2234) BILIRUBIN, TOTAL (test code = 0.4 MG/DL 2206) ALKALINE PHOSPHATASE (test 81 U/L code = 2204) AST (test code = 2218) 25 U/L ALT (test code = 2219) 34 U/L HEMOGLOBIN [id number] 00:00:00 Test Item Value Reference Range Interpretation Comments HEMOGLOBIN A1c (test code = 72535) 5.3 % HEMOGLOBIN [id number] 00:00:00 Test Item Value Reference Range Interpretation Comments HEMOGLOBIN A1c (test code = 29947) 5.3 % COMPREHENSIVE METABOLIC [id number] 00:00:00 Test Item Value Reference Range Interpretation Comments GLUCOSE (test code = 2217) 105 MG/DL BUN (test code = 2208) 16 MG/DL CREATININE (test code = 2214) 0.84 MG/DL eGFR (2020 CKD-EPI) (test code 85 ML/MIN/1.73 = 74867) CALC BUN/CREAT (test code = 19 RATIO 2235) SODIUM (test code = 2231) 141 MEQ/L POTASSIUM (test code = 2228) 3.8 MEQ/L CHLORIDE (test code = 2215) 104 MEQ/L CARBON DIOXIDE (test code = 27 MEQ/L 2205) CALCIUM (test code = 2209) 9.7 MG/DL PROTEIN, TOTAL (test code = 7.9 G/DL 2228) ALBUMIN (test code = 2201) 4.5 G/DL CALC GLOBULIN (test code = 3.4 G/DL 2240) CALC A/G RATIO (test code = 1.3 RATIO 2234) BILIRUBIN, TOTAL (test code = 0.4 MG/DL 2206) ALKALINE PHOSPHATASE (test 81 U/L code = 2204) AST (test code = 2218) 25 U/L ALT (test code = 2219) 34 U/L HEMOGLOBIN [id number] 00:00:00 Test Item Value Reference Range Interpretation Comments HEMOGLOBIN A1c (test code = 33804) 5.3 % HEMOGLOBIN [id number] 00:00:00 Test Item Value Reference Range Interpretation Comments HEMOGLOBIN A1c (test code = 70113) 5.3 % VITAMIN D, 25 [id number] 00:00:00 Test Item Value Reference Range Interpretation Comments VITAMIN D, 25 OH (test code = 4958) 13 NG/ML VITAMIN D, 25 [id number] 00:00:00 Test Item Value Reference Range Interpretation Comments VITAMIN D, 25 OH (test code = 4958) 13 NG/ML COMPREHENSIVE METABOLIC [id number] 00:00:00 Test Item Value Reference Range Interpretation Comments GLUCOSE (test code = 2217) 105 MG/DL BUN (test code = 2208) 16 MG/DL CREATININE (test code = 2214) 0.84 MG/DL eGFR (2020 CKD-EPI) (test code 85 ML/MIN/1.73 = 14107) CALC BUN/CREAT (test code = 19 RATIO 2235) SODIUM (test code = 2231) 141 MEQ/L POTASSIUM (test code = 2228) 3.8 MEQ/L CHLORIDE (test code = 2215) 104 MEQ/L CARBON DIOXIDE (test code = 27 MEQ/L 2205) CALCIUM (test code = 2209) 9.7 MG/DL PROTEIN, TOTAL (test code = 7.9 G/DL 2228) ALBUMIN (test code = 2201) 4.5 G/DL CALC GLOBULIN (test code = 3.4 G/DL 0) CALC A/G RATIO (test code = 1.3 RATIO 4) BILIRUBIN, TOTAL (test code = 0.4 MG/DL 2206) ALKALINE PHOSPHATASE (test 81 U/L code = 2204) AST (test code = 2218) 25 U/L ALT (test code = 2219) 34 U/L COMPREHENSIVE METABOLIC [id number] 00:00:00 Test Item Value Reference Range Interpretation Comments GLUCOSE (test code = 2217) 105 MG/DL BUN (test code = 2208) 16 MG/DL CREATININE (test code = 2214) 0.84 MG/DL eGFR (2020 CKD-EPI) (test code 85 ML/MIN/1.73 = 06614) CALC BUN/CREAT (test code = 19 RATIO 2235) SODIUM (test code = 2231) 141 MEQ/L POTASSIUM (test code = 2228) 3.8 MEQ/L CHLORIDE (test code = 2215) 104 MEQ/L CARBON DIOXIDE (test code = 27 MEQ/L 2205) CALCIUM (test code = 2209) 9.7 MG/DL PROTEIN, TOTAL (test code = 7.9 G/DL 2228) ALBUMIN (test code = 2201) 4.5 G/DL CALC GLOBULIN (test code = 3.4 G/DL 2239) CALC A/G RATIO (test code = 1.3 RATIO 2233) BILIRUBIN, TOTAL (test code = 0.4 MG/DL 2206) ALKALINE PHOSPHATASE (test 81 U/L code = 2204) AST (test code = 2218) 25 U/L ALT (test code = 2219) 34 U/L HEMOGLOBIN [id number] 00:00:00 Test Item Value Reference Range Interpretation Comments HEMOGLOBIN A1c (test code = 70236) 5.3 % HEMOGLOBIN [id number] 00:00:00 Test Item Value Reference Range Interpretation Comments HEMOGLOBIN A1c (test code = 41703) 5.3 % HEMOGLOBIN [id number] 00:00:00 Test Item Value Reference Range Interpretation Comments HEMOGLOBIN A1c (test code = 03164) 5.3 % [id number] 00:00:00 Test Item Value Reference Range Interpretation Comments TSH, THIRD GENERATION (test code 1.640 UIU/ML = 2821) [id number] 00:00:00 Test Item Value Reference Range Interpretation Comments TSH, THIRD GENERATION (test code 1.640 UIU/ML = 2821) VITAMIN D, 25 [id number] 00:00:00 Test Item Value Reference Range Interpretation Comments VITAMIN D, 25 OH (test code = 4958) 16 NG/ML VITAMIN D, 25 [id number] 00:00:00 Test Item Value Reference Range Interpretation Comments VITAMIN D, 25 OH (test code = 4958) 16 NG/ML CBC W/AUTO [id number] 00:00:00 Test Item Value Reference Range Interpretation Comments WBC (test code = 1001) 7.7 K/UL RBC (test code = 1002) 4.23 M/UL HEMOGLOBIN (test code = 1003) 12.8 G/DL HEMATOCRIT (test code = 1004) 37.3 % MCV (test code = 1005) 88.2 fL MCH (test code = 1006) 30.3 PG MCHC (test code = 1007) 34.3 G/DL RDW (test code = 1038) 13.7 % NEUTROPHILS (test code = 1008) 61.5 % LYMPHOCYTES (test code = 1010) 28.7 % MONOCYTES (test code = 1011) 6.0 % EOSINOPHILS (test code = 1012) 2.6 % BASOPHILS (test code = 1013) 0.8 % IMMATURE GRANULOCYTES (test 0.4 % code = 1036) NUCLEATED RBCS (test code = 0.0 /100WBC'S 1065) PLATELET COUNT (test code = 251 K/UL 1015) ABSOLUTE NEUTROPHILS (test code 4.73 K/UL = 1066) ABSOLUTE LYMPHOCYTES (test code 2.21 K/UL = 1067) ABSOLUTE MONOCYTES (test code = 0.46 K/UL 1068) ABSOLUTE EOSINOPHILS (test code 0.20 K/UL = 1040) ABSOLUTE BASOPHILS (test code = 0.06 K/UL 1069) ABS IMMATURE GRANULOCYTES (test 0.03 K/UL code = 1020) ABS NUCLEATED RBCS (test code = 0.00 K/UL 07433) CBC W/AUTO [id number] 00:00:00 Test Item Value Reference Range Interpretation Comments WBC (test code = 1001) 7.7 K/UL RBC (test code = 1002) 4.23 M/UL HEMOGLOBIN (test code = 1003) 12.8 G/DL HEMATOCRIT (test code = 1004) 37.3 % MCV (test code = 1005) 88.2 fL MCH (test code = 1006) 30.3 PG MCHC (test code = 1007) 34.3 G/DL RDW (test code = 1038) 13.7 % NEUTROPHILS (test code = 1008) 61.5 % LYMPHOCYTES (test code = 1010) 28.7 % MONOCYTES (test code = 1011) 6.0 % EOSINOPHILS (test code = 1012) 2.6 % BASOPHILS (test code = 1013) 0.8 % IMMATURE GRANULOCYTES (test 0.4 % code = 1036) NUCLEATED RBCS (test code = 0.0 /100WBC'S 1065) PLATELET COUNT (test code = 251 K/UL 1015) ABSOLUTE NEUTROPHILS (test code 4.73 K/UL = 1066) ABSOLUTE LYMPHOCYTES (test code 2.21 K/UL = 1067) ABSOLUTE MONOCYTES (test code = 0.46 K/UL 1068) ABSOLUTE EOSINOPHILS (test code 0.20 K/UL = 1040) ABSOLUTE BASOPHILS (test code = 0.06 K/UL 1069) ABS IMMATURE GRANULOCYTES (test 0.03 K/UL code = 1020) ABS NUCLEATED RBCS (test code = 0.00 K/UL 37588) COMPREHENSIVE METABOLIC [id number] 00:00:00 Test Item Value Reference Range Interpretation Comments GLUCOSE (test code = 2217) 158 MG/DL BUN (test code = 2208) 15 MG/DL CREATININE (test code = 2214) 0.75 MG/DL eGFR AMER. (test code 108 ML/MIN/1.73 = 15800) eGFR NON- AMER. (test 94 ML/MIN/1.73 code = 45064) CALC BUN/CREAT (test code = 20 RATIO 2235) SODIUM (test code = 2231) 142 MEQ/L POTASSIUM (test code = 2228) 3.8 MEQ/L CHLORIDE (test code = 2215) 103 MEQ/L CARBON DIOXIDE (test code = 24 MEQ/L 2206) CALCIUM (test code = 2209) 9.3 MG/DL PROTEIN, TOTAL (test code = 7.8 G/DL 2228) ALBUMIN (test code = 2201) 4.5 G/DL CALC GLOBULIN (test code = 3.3 G/DL 2240) CALC A/G RATIO (test code = 1.4 RATIO 2234) BILIRUBIN, TOTAL (test code = 0.3 MG/DL 220) ALKALINE PHOSPHATASE (test 94 U/L code = 2204) AST (test code = 2218) 31 U/L ALT (test code = 2219) 43 U/L [id number] 00:00:00 Test Item Value Reference Range Interpretation Comments TSH, THIRD GENERATION (test code 1.640 UIU/ML = 2821) [id number] 00:00:00 Test Item Value Reference Range Interpretation Comments TSH, THIRD GENERATION (test code 1.640 UIU/ML = 2821) VITAMIN D, 25 [id number] 00:00:00 Test Item Value Reference Range Interpretation Comments VITAMIN D, 25 OH (test code = 4958) 16 NG/ML CBC W/AUTO [id number] 00:00:00 Test Item Value Reference Range Interpretation Comments WBC (test code = 1001) 7.7 K/UL RBC (test code = 1002) 4.23 M/UL HEMOGLOBIN (test code = 1003) 12.8 G/DL HEMATOCRIT (test code = 1004) 37.3 % MCV (test code = 1005) 88.2 fL MCH (test code = 1006) 30.3 PG MCHC (test code = 1007) 34.3 G/DL RDW (test code = 1038) 13.7 % NEUTROPHILS (test code = 1008) 61.5 % LYMPHOCYTES (test code = 1010) 28.7 % MONOCYTES (test code = 1011) 6.0 % EOSINOPHILS (test code = 1012) 2.6 % BASOPHILS (test code = 1013) 0.8 % IMMATURE GRANULOCYTES (test 0.4 % code = 1036) NUCLEATED RBCS (test code = 0.0 /100WBC'S 1065) PLATELET COUNT (test code = 251 K/UL 1015) ABSOLUTE NEUTROPHILS (test code 4.73 K/UL = 1066) ABSOLUTE LYMPHOCYTES (test code 2.21 K/UL = 1067) ABSOLUTE MONOCYTES (test code = 0.46 K/UL 1068) ABSOLUTE EOSINOPHILS (test code 0.20 K/UL = 1040) ABSOLUTE BASOPHILS (test code = 0.06 K/UL 1069) ABS IMMATURE GRANULOCYTES (test 0.03 K/UL code = 1020) ABS NUCLEATED RBCS (test code = 0.00 K/UL 02421) CBC W/AUTO [id number] 00:00:00 Test Item Value Reference Range Interpretation Comments WBC (test code = 1001) 7.7 K/UL RBC (test code = 1002) 4.23 M/UL HEMOGLOBIN (test code = 1003) 12.8 G/DL HEMATOCRIT (test code = 1004) 37.3 % MCV (test code = 1005) 88.2 fL MCH (test code = 1006) 30.3 PG MCHC (test code = 1007) 34.3 G/DL RDW (test code = 1038) 13.7 % NEUTROPHILS (test code = 1008) 61.5 % LYMPHOCYTES (test code = 1010) 28.7 % MONOCYTES (test code = 1011) 6.0 % EOSINOPHILS (test code = 1012) 2.6 % BASOPHILS (test code = 1013) 0.8 % IMMATURE GRANULOCYTES (test 0.4 % code = 1036) NUCLEATED RBCS (test code = 0.0 /100WBC'S 1065) PLATELET COUNT (test code = 251 K/UL 1015) ABSOLUTE NEUTROPHILS (test code 4.73 K/UL = 1066) ABSOLUTE LYMPHOCYTES (test code 2.21 K/UL = 1067) ABSOLUTE MONOCYTES (test code = 0.46 K/UL 1068) ABSOLUTE EOSINOPHILS (test code 0.20 K/UL = 1040) ABSOLUTE BASOPHILS (test code = 0.06 K/UL 1069) ABS IMMATURE GRANULOCYTES (test 0.03 K/UL code = 1020) ABS NUCLEATED RBCS (test code = 0.00 K/UL 26382) COMPREHENSIVE METABOLIC [id number] 00:00:00 Test Item Value Reference Range Interpretation Comments GLUCOSE (test code = 2217) 158 MG/DL BUN (test code = 2208) 15 MG/DL CREATININE (test code = 2214) 0.75 MG/DL eGFR AMER. (test code 108 ML/MIN/1.73 = 95215) eGFR NON- AMER. (test 94 ML/MIN/1.73 code = 07640) CALC BUN/CREAT (test code = 20 RATIO 2235) SODIUM (test code = 2231) 142 MEQ/L POTASSIUM (test code = 2228) 3.8 MEQ/L CHLORIDE (test code = 2215) 103 MEQ/L CARBON DIOXIDE (test code = 24 MEQ/L 2206) CALCIUM (test code = 2209) 9.3 MG/DL PROTEIN, TOTAL (test code = 7.8 G/DL 222) ALBUMIN (test code = 2201) 4.5 G/DL CALC GLOBULIN (test code = 3.3 G/DL 2240) CALC A/G RATIO (test code = 1.4 RATIO 2234) BILIRUBIN, TOTAL (test code = 0.3 MG/DL 2207) ALKALINE PHOSPHATASE (test 94 U/L code = 2204) AST (test code = 2218) 31 U/L ALT (test code = 2219) 43 U/L [id number] 00:00:00 Test Item Value Reference Range Interpretation Comments TSH, THIRD GENERATION (test code 1.640 UIU/ML = 2821) [id number] 00:00:00 Test Item Value Reference Range Interpretation Comments TSH, THIRD GENERATION (test code 1.640 UIU/ML = 2821) VITAMIN D, 25 [id number] 00:00:00 Test Item Value Reference Range Interpretation Comments VITAMIN D, 25 OH (test code = 4958) 16 NG/ML CBC W/AUTO [id number] 00:00:00 Test Item Value Reference Range Interpretation Comments WBC (test code = 1001) 7.7 K/UL RBC (test code = 1002) 4.23 M/UL HEMOGLOBIN (test code = 1003) 12.8 G/DL HEMATOCRIT (test code = 1004) 37.3 % MCV (test code = 1005) 88.2 fL MCH (test code = 1006) 30.3 PG MCHC (test code = 1007) 34.3 G/DL RDW (test code = 1038) 13.7 % NEUTROPHILS (test code = 1008) 61.5 % LYMPHOCYTES (test code = 1010) 28.7 % MONOCYTES (test code = 1011) 6.0 % EOSINOPHILS (test code = 1012) 2.6 % BASOPHILS (test code = 1013) 0.8 % IMMATURE GRANULOCYTES (test 0.4 % code = 1036) NUCLEATED RBCS (test code = 0.0 /100WBC'S 1065) PLATELET COUNT (test code = 251 K/UL 1015) ABSOLUTE NEUTROPHILS (test code 4.73 K/UL = 1066) ABSOLUTE LYMPHOCYTES (test code 2.21 K/UL = 1067) ABSOLUTE MONOCYTES (test code = 0.46 K/UL 1068) ABSOLUTE EOSINOPHILS (test code 0.20 K/UL = 1040) ABSOLUTE BASOPHILS (test code = 0.06 K/UL 1069) ABS IMMATURE GRANULOCYTES (test 0.03 K/UL code = 1020) ABS NUCLEATED RBCS (test code = 0.00 K/UL 10416) CBC W/AUTO [id number] 00:00:00 Test Item Value Reference Range Interpretation Comments WBC (test code = 1001) 7.7 K/UL RBC (test code = 1002) 4.23 M/UL HEMOGLOBIN (test code = 1003) 12.8 G/DL HEMATOCRIT (test code = 1004) 37.3 % MCV (test code = 1005) 88.2 fL MCH (test code = 1006) 30.3 PG MCHC (test code = 1007) 34.3 G/DL RDW (test code = 1038) 13.7 % NEUTROPHILS (test code = 1008) 61.5 % LYMPHOCYTES (test code = 1010) 28.7 % MONOCYTES (test code = 1011) 6.0 % EOSINOPHILS (test code = 1012) 2.6 % BASOPHILS (test code = 1013) 0.8 % IMMATURE GRANULOCYTES (test 0.4 % code = 1036) NUCLEATED RBCS (test code = 0.0 /100WBC'S 1065) PLATELET COUNT (test code = 251 K/UL 1015) ABSOLUTE NEUTROPHILS (test code 4.73 K/UL = 1066) ABSOLUTE LYMPHOCYTES (test code 2.21 K/UL = 1067) ABSOLUTE MONOCYTES (test code = 0.46 K/UL 1068) ABSOLUTE EOSINOPHILS (test code 0.20 K/UL = 1040) ABSOLUTE BASOPHILS (test code = 0.06 K/UL 1069) ABS IMMATURE GRANULOCYTES (test 0.03 K/UL code = 1020) ABS NUCLEATED RBCS (test code = 0.00 K/UL 04191) COMPREHENSIVE METABOLIC [id number] 00:00:00 Test Item Value Reference Range Interpretation Comments GLUCOSE (test code = 2217) 158 MG/DL BUN (test code = 2208) 15 MG/DL CREATININE (test code = 2214) 0.75 MG/DL eGFR AMER. (test code 108 ML/MIN/1.73 = 24326) eGFR NON- AMER. (test 94 ML/MIN/1.73 code = 22517) CALC BUN/CREAT (test code = 20 RATIO 2235) SODIUM (test code = 2231) 142 MEQ/L POTASSIUM (test code = 2228) 3.8 MEQ/L CHLORIDE (test code = 2215) 103 MEQ/L CARBON DIOXIDE (test code = 24 MEQ/L 2206) CALCIUM (test code = 2209) 9.3 MG/DL PROTEIN, TOTAL (test code = 7.8 G/DL 2228) ALBUMIN (test code = 2201) 4.5 G/DL CALC GLOBULIN (test code = 3.3 G/DL 2240) CALC A/G RATIO (test code = 1.4 RATIO 2234) BILIRUBIN, TOTAL (test code = 0.3 MG/DL 2206) ALKALINE PHOSPHATASE (test 94 U/L code = 2204) AST (test code = 2218) 31 U/L ALT (test code = 2219) 43 U/L [id number] 00:00:00 Test Item Value Reference Range Interpretation Comments TSH, THIRD GENERATION (test code 1.640 UIU/ML = 2821) [id number] 00:00:00 Test Item Value Reference Range Interpretation Comments TSH, THIRD GENERATION (test code 1.640 UIU/ML = 2821) VITAMIN D, 25 [id number] 00:00:00 Test Item Value Reference Range Interpretation Comments VITAMIN D, 25 OH (test code = 4958) 16 NG/ML CBC W/AUTO [id number] 00:00:00 Test Item Value Reference Range Interpretation Comments WBC (test code = 1001) 7.7 K/UL RBC (test code = 1002) 4.23 M/UL HEMOGLOBIN (test code = 1003) 12.8 G/DL HEMATOCRIT (test code = 1004) 37.3 % MCV (test code = 1005) 88.2 fL MCH (test code = 1006) 30.3 PG MCHC (test code = 1007) 34.3 G/DL RDW (test code = 1038) 13.7 % NEUTROPHILS (test code = 1008) 61.5 % LYMPHOCYTES (test code = 1010) 28.7 % MONOCYTES (test code = 1011) 6.0 % EOSINOPHILS (test code = 1012) 2.6 % BASOPHILS (test code = 1013) 0.8 % IMMATURE GRANULOCYTES (test 0.4 % code = 1036) NUCLEATED RBCS (test code = 0.0 /100WBC'S 1065) PLATELET COUNT (test code = 251 K/UL 1015) ABSOLUTE NEUTROPHILS (test code 4.73 K/UL = 1066) ABSOLUTE LYMPHOCYTES (test code 2.21 K/UL = 1067) ABSOLUTE MONOCYTES (test code = 0.46 K/UL 1068) ABSOLUTE EOSINOPHILS (test code 0.20 K/UL = 1040) ABSOLUTE BASOPHILS (test code = 0.06 K/UL 1069) ABS IMMATURE GRANULOCYTES (test 0.03 K/UL code = 1020) ABS NUCLEATED RBCS (test code = 0.00 K/UL 07881) CBC W/AUTO [id number] 00:00:00 Test Item Value Reference Range Interpretation Comments WBC (test code = 1001) 7.7 K/UL RBC (test code = 1002) 4.23 M/UL HEMOGLOBIN (test code = 1003) 12.8 G/DL HEMATOCRIT (test code = 1004) 37.3 % MCV (test code = 1005) 88.2 fL MCH (test code = 1006) 30.3 PG MCHC (test code = 1007) 34.3 G/DL RDW (test code = 1038) 13.7 % NEUTROPHILS (test code = 1008) 61.5 % LYMPHOCYTES (test code = 1010) 28.7 % MONOCYTES (test code = 1011) 6.0 % EOSINOPHILS (test code = 1012) 2.6 % BASOPHILS (test code = 1013) 0.8 % IMMATURE GRANULOCYTES (test 0.4 % code = 1036) NUCLEATED RBCS (test code = 0.0 /100WBC'S 1065) PLATELET COUNT (test code = 251 K/UL 1015) ABSOLUTE NEUTROPHILS (test code 4.73 K/UL = 1066) ABSOLUTE LYMPHOCYTES (test code 2.21 K/UL = 1067) ABSOLUTE MONOCYTES (test code = 0.46 K/UL 1068) ABSOLUTE EOSINOPHILS (test code 0.20 K/UL = 1040) ABSOLUTE BASOPHILS (test code = 0.06 K/UL 1069) ABS IMMATURE GRANULOCYTES (test 0.03 K/UL code = 1020) ABS NUCLEATED RBCS (test code = 0.00 K/UL 35377) CBC W/AUTO [id number] 00:00:00 Test Item Value Reference Range Interpretation Comments WBC (test code = 1001) 7.7 K/UL RBC (test code = 1002) 4.23 M/UL HEMOGLOBIN (test code = 1003) 12.8 G/DL HEMATOCRIT (test code = 1004) 37.3 % MCV (test code = 1005) 88.2 fL MCH (test code = 1006) 30.3 PG MCHC (test code = 1007) 34.3 G/DL RDW (test code = 1038) 13.7 % NEUTROPHILS (test code = 1008) 61.5 % LYMPHOCYTES (test code = 1010) 28.7 % MONOCYTES (test code = 1011) 6.0 % EOSINOPHILS (test code = 1012) 2.6 % BASOPHILS (test code = 1013) 0.8 % IMMATURE GRANULOCYTES (test 0.4 % code = 1036) NUCLEATED RBCS (test code = 0.0 /100WBC'S 1065) PLATELET COUNT (test code = 251 K/UL 1015) ABSOLUTE NEUTROPHILS (test code 4.73 K/UL = 1066) ABSOLUTE LYMPHOCYTES (test code 2.21 K/UL = 1067) ABSOLUTE MONOCYTES (test code = 0.46 K/UL 1068) ABSOLUTE EOSINOPHILS (test code 0.20 K/UL = 1040) ABSOLUTE BASOPHILS (test code = 0.06 K/UL 1069) ABS IMMATURE GRANULOCYTES (test 0.03 K/UL code = 1020) ABS NUCLEATED RBCS (test code = 0.00 K/UL 32658) CBC W/AUTO [id number] 00:00:00 Test Item Value Reference Range Interpretation Comments WBC (test code = 1001) 7.7 K/UL RBC (test code = 1002) 4.23 M/UL HEMOGLOBIN (test code = 1003) 12.8 G/DL HEMATOCRIT (test code = 1004) 37.3 % MCV (test code = 1005) 88.2 fL MCH (test code = 1006) 30.3 PG MCHC (test code = 1007) 34.3 G/DL RDW (test code = 1038) 13.7 % NEUTROPHILS (test code = 1008) 61.5 % LYMPHOCYTES (test code = 1010) 28.7 % MONOCYTES (test code = 1011) 6.0 % EOSINOPHILS (test code = 1012) 2.6 % BASOPHILS (test code = 1013) 0.8 % IMMATURE GRANULOCYTES (test 0.4 % code = 1036) NUCLEATED RBCS (test code = 0.0 /100WBC'S 1065) PLATELET COUNT (test code = 251 K/UL 1015) ABSOLUTE NEUTROPHILS (test code 4.73 K/UL = 1066) ABSOLUTE LYMPHOCYTES (test code 2.21 K/UL = 1067) ABSOLUTE MONOCYTES (test code = 0.46 K/UL 1068) ABSOLUTE EOSINOPHILS (test code 0.20 K/UL = 1040) ABSOLUTE BASOPHILS (test code = 0.06 K/UL 1069) ABS IMMATURE GRANULOCYTES (test 0.03 K/UL code = 1020) ABS NUCLEATED RBCS (test code = 0.00 K/UL 07465) COMPREHENSIVE METABOLIC [id number] 00:00:00 Test Item Value Reference Range Interpretation Comments GLUCOSE (test code = 2217) 158 MG/DL BUN (test code = 2208) 15 MG/DL CREATININE (test code = 2214) 0.75 MG/DL eGFR AMER. (test code 108 ML/MIN/1.73 = 43598) eGFR NON- AMER. (test 94 ML/MIN/1.73 code = 71824) CALC BUN/CREAT (test code = 20 RATIO 2235) SODIUM (test code = 2231) 142 MEQ/L POTASSIUM (test code = 2228) 3.8 MEQ/L CHLORIDE (test code = 2215) 103 MEQ/L CARBON DIOXIDE (test code = 24 MEQ/L 220) CALCIUM (test code = 2209) 9.3 MG/DL PROTEIN, TOTAL (test code = 7.8 G/DL 2228) ALBUMIN (test code = 2201) 4.5 G/DL CALC GLOBULIN (test code = 3.3 G/DL 2240) CALC A/G RATIO (test code = 1.4 RATIO 223) BILIRUBIN, TOTAL (test code = 0.3 MG/DL 2206) ALKALINE PHOSPHATASE (test 94 U/L code = 2204) AST (test code = 2218) 31 U/L ALT (test code = 2219) 43 U/L COMPREHENSIVE METABOLIC [id number] 00:00:00 Test Item Value Reference Range Interpretation Comments GLUCOSE (test code = 2217) 158 MG/DL BUN (test code = 2208) 15 MG/DL CREATININE (test code = 2214) 0.75 MG/DL eGFR AMER. (test code 108 ML/MIN/1.73 = 75944) eGFR NON- AMER. (test 94 ML/MIN/1.73 code = 76338) CALC BUN/CREAT (test code = 20 RATIO 2235) SODIUM (test code = 2231) 142 MEQ/L POTASSIUM (test code = 2228) 3.8 MEQ/L CHLORIDE (test code = 2215) 103 MEQ/L CARBON DIOXIDE (test code = 24 MEQ/L 2206) CALCIUM (test code = 2209) 9.3 MG/DL PROTEIN, TOTAL (test code = 7.8 G/DL 2228) ALBUMIN (test code = 2201) 4.5 G/DL CALC GLOBULIN (test code = 3.3 G/DL 2240) CALC A/G RATIO (test code = 1.4 RATIO 2234) BILIRUBIN, TOTAL (test code = 0.3 MG/DL 7) ALKALINE PHOSPHATASE (test 94 U/L code = 2204) AST (test code = 2218) 31 U/L ALT (test code = 2219) 43 U/L [id number] 00:00:00 Test Item Value Reference Range Interpretation Comments TSH, THIRD GENERATION (test code 1.640 UIU/ML = 2821) [id number] 00:00:00 Test Item Value Reference Range Interpretation Comments TSH, THIRD GENERATION (test code 1.640 UIU/ML = 2821) VITAMIN D, 25 [id number] 00:00:00 Test Item Value Reference Range Interpretation Comments VITAMIN D, 25 OH (test code = 4958) 16 NG/ML [id number] 00:00:00 Test Item Value Reference Range Interpretation Comments TSH, THIRD GENERATION (test code 1.640 UIU/ML = 2821) [id number] 00:00:00 Test Item Value Reference Range Interpretation Comments TSH, THIRD GENERATION (test code 1.640 UIU/ML = 2821) VITAMIN D, 25 [id number] 00:00:00 Test Item Value Reference Range Interpretation Comments VITAMIN D, 25 OH (test code = 4958) 16 NG/ML CBC W/AUTO [id number] 00:00:00 Test Item Value Reference Range Interpretation Comments WBC (test code = 1001) 7.7 K/UL RBC (test code = 1002) 4.23 M/UL HEMOGLOBIN (test code = 1003) 12.8 G/DL HEMATOCRIT (test code = 1004) 37.3 % MCV (test code = 1005) 88.2 fL MCH (test code = 1006) 30.3 PG MCHC (test code = 1007) 34.3 G/DL RDW (test code = 1038) 13.7 % NEUTROPHILS (test code = 1008) 61.5 % LYMPHOCYTES (test code = 1010) 28.7 % MONOCYTES (test code = 1011) 6.0 % EOSINOPHILS (test code = 1012) 2.6 % BASOPHILS (test code = 1013) 0.8 % IMMATURE GRANULOCYTES (test 0.4 % code = 1036) NUCLEATED RBCS (test code = 0.0 /100WBC'S 1065) PLATELET COUNT (test code = 251 K/UL 1015) ABSOLUTE NEUTROPHILS (test code 4.73 K/UL = 1066) ABSOLUTE LYMPHOCYTES (test code 2.21 K/UL = 1067) ABSOLUTE MONOCYTES (test code = 0.46 K/UL 1068) ABSOLUTE EOSINOPHILS (test code 0.20 K/UL = 1040) ABSOLUTE BASOPHILS (test code = 0.06 K/UL 1069) ABS IMMATURE GRANULOCYTES (test 0.03 K/UL code = 1020) ABS NUCLEATED RBCS (test code = 0.00 K/UL 58624) CBC W/AUTO [id number] 00:00:00 Test Item Value Reference Range Interpretation Comments WBC (test code = 1001) 7.7 K/UL RBC (test code = 1002) 4.23 M/UL HEMOGLOBIN (test code = 1003) 12.8 G/DL HEMATOCRIT (test code = 1004) 37.3 % MCV (test code = 1005) 88.2 fL MCH (test code = 1006) 30.3 PG MCHC (test code = 1007) 34.3 G/DL RDW (test code = 1038) 13.7 % NEUTROPHILS (test code = 1008) 61.5 % LYMPHOCYTES (test code = 1010) 28.7 % MONOCYTES (test code = 1011) 6.0 % EOSINOPHILS (test code = 1012) 2.6 % BASOPHILS (test code = 1013) 0.8 % IMMATURE GRANULOCYTES (test 0.4 % code = 1036) NUCLEATED RBCS (test code = 0.0 /100WBC'S 1065) PLATELET COUNT (test code = 251 K/UL 1015) ABSOLUTE NEUTROPHILS (test code 4.73 K/UL = 1066) ABSOLUTE LYMPHOCYTES (test code 2.21 K/UL = 1067) ABSOLUTE MONOCYTES (test code = 0.46 K/UL 1068) ABSOLUTE EOSINOPHILS (test code 0.20 K/UL = 1040) ABSOLUTE BASOPHILS (test code = 0.06 K/UL 1069) ABS IMMATURE GRANULOCYTES (test 0.03 K/UL code = 1020) ABS NUCLEATED RBCS (test code = 0.00 K/UL 82393) CBC W/AUTO [id number] 00:00:00 Test Item Value Reference Range Interpretation Comments WBC (test code = 1001) 7.7 K/UL RBC (test code = 1002) 4.23 M/UL HEMOGLOBIN (test code = 1003) 12.8 G/DL HEMATOCRIT (test code = 1004) 37.3 % MCV (test code = 1005) 88.2 fL MCH (test code = 1006) 30.3 PG MCHC (test code = 1007) 34.3 G/DL RDW (test code = 1038) 13.7 % NEUTROPHILS (test code = 1008) 61.5 % LYMPHOCYTES (test code = 1010) 28.7 % MONOCYTES (test code = 1011) 6.0 % EOSINOPHILS (test code = 1012) 2.6 % BASOPHILS (test code = 1013) 0.8 % IMMATURE GRANULOCYTES (test 0.4 % code = 1036) NUCLEATED RBCS (test code = 0.0 /100WBC'S 1065) PLATELET COUNT (test code = 251 K/UL 1015) ABSOLUTE NEUTROPHILS (test code 4.73 K/UL = 1066) ABSOLUTE LYMPHOCYTES (test code 2.21 K/UL = 1067) ABSOLUTE MONOCYTES (test code = 0.46 K/UL 1068) ABSOLUTE EOSINOPHILS (test code 0.20 K/UL = 1040) ABSOLUTE BASOPHILS (test code = 0.06 K/UL 1069) ABS IMMATURE GRANULOCYTES (test 0.03 K/UL code = 1020) ABS NUCLEATED RBCS (test code = 0.00 K/UL 35793) COMPREHENSIVE METABOLIC [id number] 00:00:00 Test Item Value Reference Range Interpretation Comments GLUCOSE (test code = 2217) 158 MG/DL BUN (test code = 2208) 15 MG/DL CREATININE (test code = 2214) 0.75 MG/DL eGFR AMER. (test code 108 ML/MIN/1.73 = 24546) eGFR NON- AMER. (test 94 ML/MIN/1.73 code = 04903) CALC BUN/CREAT (test code = 20 RATIO 2235) SODIUM (test code = 2231) 142 MEQ/L POTASSIUM (test code = 2228) 3.8 MEQ/L CHLORIDE (test code = 2215) 103 MEQ/L CARBON DIOXIDE (test code = 24 MEQ/L 2206) CALCIUM (test code = 2209) 9.3 MG/DL PROTEIN, TOTAL (test code = 7.8 G/DL 2229) ALBUMIN (test code = 2201) 4.5 G/DL CALC GLOBULIN (test code = 3.3 G/DL 2240) CALC A/G RATIO (test code = 1.4 RATIO 2234) BILIRUBIN, TOTAL (test code = 0.3 MG/DL 2206) ALKALINE PHOSPHATASE (test 94 U/L code = 2204) AST (test code = 2218) 31 U/L ALT (test code = 2219) 43 U/L COMPREHENSIVE METABOLIC [id number] 00:00:00 Test Item Value Reference Range Interpretation Comments GLUCOSE (test code = 2217) 158 MG/DL BUN (test code = 2208) 15 MG/DL CREATININE (test code = 2214) 0.75 MG/DL eGFR AMER. (test code 108 ML/MIN/1.73 = 28893) eGFR NON- AMER. (test 94 ML/MIN/1.73 code = 57212) CALC BUN/CREAT (test code = 20 RATIO 2235) SODIUM (test code = 2231) 142 MEQ/L POTASSIUM (test code = 2228) 3.8 MEQ/L CHLORIDE (test code = 2215) 103 MEQ/L CARBON DIOXIDE (test code = 24 MEQ/L 2205) CALCIUM (test code = 2209) 9.3 MG/DL PROTEIN, TOTAL (test code = 7.8 G/DL 2228) ALBUMIN (test code = 2201) 4.5 G/DL CALC GLOBULIN (test code = 3.3 G/DL 2240) CALC A/G RATIO (test code = 1.4 RATIO 2234) BILIRUBIN, TOTAL (test code = 0.3 MG/DL 2206) ALKALINE PHOSPHATASE (test 94 U/L code = 2204) AST (test code = 2218) 31 U/L ALT (test code = 2219) 43 U/L [id number] 00:00:00 Test Item Value Reference Range Interpretation Comments TSH, THIRD GENERATION (test code 1.640 UIU/ML = 2821) SARS-CoV-2 (COVID-19) by RT-PCR (HIGH RISK)2020-07-19 00:00:00 Test Item Value Reference Range Interpretation Comments SARS-CoV-2 INTERPRETATION (test NEGATIVE code = 94961) SOURCE (test code = 65969) NOT SPECIFIED SARS-CoV-2 (COVID-19) by RT-PCR (HIGH RISK)2020-07-19 00:00:00 Test Item Value Reference Range Interpretation Comments SARS-CoV-2 INTERPRETATION (test NEGATIVE code = 67692) SOURCE (test code = 48877) NOT SPECIFIED SARS-CoV-2 (COVID-19) by RT-PCR (HIGH RISK)2020-07-19 00:00:00 Test Item Value Reference Range Interpretation Comments SARS-CoV-2 INTERPRETATION (test NEGATIVE code = 30971) SOURCE (test code = 11670) NOT SPECIFIED SARS-CoV-2 (COVID-19) by RT-PCR (HIGH RISK)2020-07-19 00:00:00 Test Item Value Reference Range Interpretation Comments SARS-CoV-2 INTERPRETATION (test NEGATIVE code = 69408) SOURCE (test code = 95594) NOT SPECIFIED SARS-CoV-2 (COVID-19) by RT-PCR (HIGH RISK)2020-07-19 00:00:00 Test Item Value Reference Range Interpretation Comments SARS-CoV-2 INTERPRETATION (test NEGATIVE code = 02073) SOURCE (test code = 14740) NOT SPECIFIED SARS-CoV-2 (COVID-19) by RT-PCR (HIGH RISK)2020-07-19 00:00:00 Test Item Value Reference Range Interpretation Comments SARS-CoV-2 INTERPRETATION (test NEGATIVE code = 88034) SOURCE (test code = 99971) NOT SPECIFIED SARS-CoV-2 (COVID-19) by RT-PCR (HIGH RISK)2020-07-19 00:00:00 Test Item Value Reference Range Interpretation Comments SARS-CoV-2 INTERPRETATION (test NEGATIVE code = 88787) SOURCE (test code = 72638) NOT SPECIFIED CBC W/AUTO [id number] 00:00:00 Test Item Value Reference Range Interpretation Comments WBC (test code = 1001) 6.9 K/UL RBC (test code = 1002) 4.15 M/UL HEMOGLOBIN (test code = 1003) 12.1 G/DL HEMATOCRIT (test code = 1004) 36.1 % MCV (test code = 1005) 87.0 fL MCH (test code = 1006) 29.2 PG MCHC (test code = 1007) 33.5 G/DL RDW (test code = 1038) 12.9 % NEUTROPHILS (test code = 1008) 60.0 % LYMPHOCYTES (test code = 1010) 29.2 % MONOCYTES (test code = 1011) 7.2 % EOSINOPHILS (test code = 1012) 2.9 % BASOPHILS (test code = 1013) 0.7 % PLATELET COUNT (test code = 1015) 224 K/UL HEMOGLOBIN [id number] 00:00:00 Test Item Value Reference Range Interpretation Comments HEMOGLOBIN A1c (test code = 75070) 5.2 % HEMOGLOBIN [id number] 00:00:00 Test Item Value Reference Range Interpretation Comments HEMOGLOBIN A1c (test code = 03941) 5.2 % HEMOGLOBIN [id number] 00:00:00 Test Item Value Reference Range Interpretation Comments HEMOGLOBIN A1c (test code = 25062) 5.2 % THYROID II PROFILE (T3U, T4, T7, TSH)2020 00:00:00 Test Item Value Reference Range Interpretation Comments T-UPTAKE (test code = 2817) 30.2 % THYROX. BIND. CAPAC. (test code 1.1 = 47822) T4 (THYROXINE) (test code = 8.0 UG/DL 2819) CORRECTED T4 (FTI) (test code = 7.3 UG/DL 2820) TSH, THIRD GENERATION (test code 1.840 UIU/ML = 2821) THYROID II PROFILE (T3U, T4, T7, TSH)2020 00:00:00 Test Item Value Reference Range Interpretation Comments T-UPTAKE (test code = 2817) 30.2 % THYROX. BIND. CAPAC. (test code 1.1 = 19425) T4 (THYROXINE) (test code = 8.0 UG/DL 2819) CORRECTED T4 (FTI) (test code = 7.3 UG/DL 2820) TSH, THIRD GENERATION (test code 1.840 UIU/ML = 2821) THYROID II PROFILE (T3U, T4, T7, TSH)2020 00:00:00 Test Item Value Reference Range Interpretation Comments T-UPTAKE (test code = 2817) 30.2 % THYROX. BIND. CAPAC. (test code 1.1 = 84681) T4 (THYROXINE) (test code = 8.0 UG/DL 2819) CORRECTED T4 (FTI) (test code = 7.3 UG/DL 2820) TSH, THIRD GENERATION (test code 1.840 UIU/ML = 2821) COMPREHENSIVE METABOLIC [id number] 00:00:00 Test Item Value Reference Range Interpretation Comments GLUCOSE (test code = 2217) 111 MG/DL BUN (test code = 2208) 14 MG/DL CREATININE (test code = 2214) 0.84 MG/DL eGFR AMER. (test code 95 ML/MIN/1.73 = 26645) eGFR NON- AMER. (test 82 ML/MIN/1.73 code = 64860) CALC BUN/CREAT (test code = 17 RATIO 2235) SODIUM (test code = 2231) 139 MEQ/L POTASSIUM (test code = 2228) 4.1 MEQ/L CHLORIDE (test code = 2215) 102 MEQ/L CARBON DIOXIDE (test code = 28 MEQ/L 2205) CALCIUM (test code = 2209) 9.4 MG/DL PROTEIN, TOTAL (test code = 7.4 G/DL 2228) ALBUMIN (test code = 2201) 4.4 G/DL CALC GLOBULIN (test code = 3.0 G/DL 224) CALC A/G RATIO (test code = 1.5 RATIO 2234) BILIRUBIN, TOTAL (test code = 0.5 MG/DL 2206) ALKALINE PHOSPHATASE (test 71 U/L code = 2204) AST (test code = 2218) 22 U/L ALT (test code = 2219) 25 U/L LIPID [id number] 00:00:00 Test Item Value Reference Range Interpretation Comments CHOLESTEROL (test code = 2210) 152 MG/DL TRIGLYCERIDES (test code = 2232) 143 MG/DL HDL CHOLESTEROL (test code = 2220) 36 MG/DL CALC LDL CHOL (test code = 2237) 92 MG/DL RISK RATIO LDL/HDL (test code = 2.56 RATIO 2238) CBC W/AUTO [id number] 00:00:00 Test Item Value Reference Range Interpretation Comments WBC (test code = 1001) 6.9 K/UL RBC (test code = 1002) 4.15 M/UL HEMOGLOBIN (test code = 1003) 12.1 G/DL HEMATOCRIT (test code = 1004) 36.1 % MCV (test code = 1005) 87.0 fL MCH (test code = 1006) 29.2 PG MCHC (test code = 1007) 33.5 G/DL RDW (test code = 1038) 12.9 % NEUTROPHILS (test code = 1008) 60.0 % LYMPHOCYTES (test code = 1010) 29.2 % MONOCYTES (test code = 1011) 7.2 % EOSINOPHILS (test code = 1012) 2.9 % BASOPHILS (test code = 1013) 0.7 % PLATELET COUNT (test code = 1015) 224 K/UL CBC W/AUTO [id number] 00:00:00 Test Item Value Reference Range Interpretation Comments WBC (test code = 1001) 6.9 K/UL RBC (test code = 1002) 4.15 M/UL HEMOGLOBIN (test code = 1003) 12.1 G/DL HEMATOCRIT (test code = 1004) 36.1 % MCV (test code = 1005) 87.0 fL MCH (test code = 1006) 29.2 PG MCHC (test code = 1007) 33.5 G/DL RDW (test code = 1038) 12.9 % NEUTROPHILS (test code = 1008) 60.0 % LYMPHOCYTES (test code = 1010) 29.2 % MONOCYTES (test code = 1011) 7.2 % EOSINOPHILS (test code = 1012) 2.9 % BASOPHILS (test code = 1013) 0.7 % PLATELET COUNT (test code = 1015) 224 K/UL HEMOGLOBIN [id number] 00:00:00 Test Item Value Reference Range Interpretation Comments HEMOGLOBIN A1c (test code = 11541) 5.2 % HEMOGLOBIN [id number] 00:00:00 Test Item Value Reference Range Interpretation Comments HEMOGLOBIN A1c (test code = 99713) 5.2 % THYROID II PROFILE (T3U, T4, T7, TSH)2020 00:00:00 Test Item Value Reference Range Interpretation Comments T-UPTAKE (test code = 2817) 30.2 % THYROX. BIND. CAPAC. (test code 1.1 = 28664) T4 (THYROXINE) (test code = 8.0 UG/DL 2819) CORRECTED T4 (FTI) (test code = 7.3 UG/DL 2820) TSH, THIRD GENERATION (test code 1.840 UIU/ML = 2821) COMPREHENSIVE METABOLIC [id number] 00:00:00 Test Item Value Reference Range Interpretation Comments GLUCOSE (test code = 2217) 111 MG/DL BUN (test code = 2208) 14 MG/DL CREATININE (test code = 2214) 0.84 MG/DL eGFR AMER. (test code 95 ML/MIN/1.73 = 77719) eGFR NON- AMER. (test 82 ML/MIN/1.73 code = 22463) CALC BUN/CREAT (test code = 17 RATIO 2235) SODIUM (test code = 2231) 139 MEQ/L POTASSIUM (test code = 2228) 4.1 MEQ/L CHLORIDE (test code = 2215) 102 MEQ/L CARBON DIOXIDE (test code = 28 MEQ/L 2205) CALCIUM (test code = 2209) 9.4 MG/DL PROTEIN, TOTAL (test code = 7.4 G/DL 2228) ALBUMIN (test code = 2201) 4.4 G/DL CALC GLOBULIN (test code = 3.0 G/DL 2239) CALC A/G RATIO (test code = 1.5 RATIO 2233) BILIRUBIN, TOTAL (test code = 0.5 MG/DL 2206) ALKALINE PHOSPHATASE (test 71 U/L code = 2204) AST (test code = 2218) 22 U/L ALT (test code = 2219) 25 U/L LIPID [id number] 00:00:00 Test Item Value Reference Range Interpretation Comments CHOLESTEROL (test code = 2210) 152 MG/DL TRIGLYCERIDES (test code = 2232) 143 MG/DL HDL CHOLESTEROL (test code = 2220) 36 MG/DL CALC LDL CHOL (test code = 2237) 92 MG/DL RISK RATIO LDL/HDL (test code = 2.56 RATIO 8) CBC W/AUTO [id number] 00:00:00 Test Item Value Reference Range Interpretation Comments WBC (test code = 1001) 6.9 K/UL RBC (test code = 1002) 4.15 M/UL HEMOGLOBIN (test code = 1003) 12.1 G/DL HEMATOCRIT (test code = 1004) 36.1 % MCV (test code = 1005) 87.0 fL MCH (test code = 1006) 29.2 PG MCHC (test code = 1007) 33.5 G/DL RDW (test code = 1038) 12.9 % NEUTROPHILS (test code = 1008) 60.0 % LYMPHOCYTES (test code = 1010) 29.2 % MONOCYTES (test code = 1011) 7.2 % EOSINOPHILS (test code = 1012) 2.9 % BASOPHILS (test code = 1013) 0.7 % PLATELET COUNT (test code = 1015) 224 K/UL CBC W/AUTO [id number] 00:00:00 Test Item Value Reference Range Interpretation Comments WBC (test code = 1001) 6.9 K/UL RBC (test code = 1002) 4.15 M/UL HEMOGLOBIN (test code = 1003) 12.1 G/DL HEMATOCRIT (test code = 1004) 36.1 % MCV (test code = 1005) 87.0 fL MCH (test code = 1006) 29.2 PG MCHC (test code = 1007) 33.5 G/DL RDW (test code = 1038) 12.9 % NEUTROPHILS (test code = 1008) 60.0 % LYMPHOCYTES (test code = 1010) 29.2 % MONOCYTES (test code = 1011) 7.2 % EOSINOPHILS (test code = 1012) 2.9 % BASOPHILS (test code = 1013) 0.7 % PLATELET COUNT (test code = 1015) 224 K/UL HEMOGLOBIN [id number] 00:00:00 Test Item Value Reference Range Interpretation Comments HEMOGLOBIN A1c (test code = 25285) 5.2 % HEMOGLOBIN [id number] 00:00:00 Test Item Value Reference Range Interpretation Comments HEMOGLOBIN A1c (test code = 93678) 5.2 % THYROID II PROFILE (T3U, T4, T7, TSH)2020 00:00:00 Test Item Value Reference Range Interpretation Comments T-UPTAKE (test code = 2817) 30.2 % THYROX. BIND. CAPAC. (test code 1.1 = 77028) T4 (THYROXINE) (test code = 8.0 UG/DL 2819) CORRECTED T4 (FTI) (test code = 7.3 UG/DL 2820) TSH, THIRD GENERATION (test code 1.840 UIU/ML = 2821) COMPREHENSIVE METABOLIC [id number] 00:00:00 Test Item Value Reference Range Interpretation Comments GLUCOSE (test code = 2217) 111 MG/DL BUN (test code = 2208) 14 MG/DL CREATININE (test code = 2214) 0.84 MG/DL eGFR AMER. (test code 95 ML/MIN/1.73 = 71761) eGFR NON- AMER. (test 82 ML/MIN/1.73 code = 06807) CALC BUN/CREAT (test code = 17 RATIO 2235) SODIUM (test code = 2231) 139 MEQ/L POTASSIUM (test code = 2228) 4.1 MEQ/L CHLORIDE (test code = 2215) 102 MEQ/L CARBON DIOXIDE (test code = 28 MEQ/L 220) CALCIUM (test code = 2209) 9.4 MG/DL PROTEIN, TOTAL (test code = 7.4 G/DL 2228) ALBUMIN (test code = 2201) 4.4 G/DL CALC GLOBULIN (test code = 3.0 G/DL 2240) CALC A/G RATIO (test code = 1.5 RATIO 223) BILIRUBIN, TOTAL (test code = 0.5 MG/DL 2206) ALKALINE PHOSPHATASE (test 71 U/L code = 2204) AST (test code = 2218) 22 U/L ALT (test code = 2219) 25 U/L LIPID [id number] 00:00:00 Test Item Value Reference Range Interpretation Comments CHOLESTEROL (test code = 2210) 152 MG/DL TRIGLYCERIDES (test code = 2232) 143 MG/DL HDL CHOLESTEROL (test code = 2220) 36 MG/DL CALC LDL CHOL (test code = 2237) 92 MG/DL RISK RATIO LDL/HDL (test code = 2.56 RATIO 2238) CBC W/AUTO [id number] 00:00:00 Test Item Value Reference Range Interpretation Comments WBC (test code = 1001) 6.9 K/UL RBC (test code = 1002) 4.15 M/UL HEMOGLOBIN (test code = 1003) 12.1 G/DL HEMATOCRIT (test code = 1004) 36.1 % MCV (test code = 1005) 87.0 fL MCH (test code = 1006) 29.2 PG MCHC (test code = 1007) 33.5 G/DL RDW (test code = 1038) 12.9 % NEUTROPHILS (test code = 1008) 60.0 % LYMPHOCYTES (test code = 1010) 29.2 % MONOCYTES (test code = 1011) 7.2 % EOSINOPHILS (test code = 1012) 2.9 % BASOPHILS (test code = 1013) 0.7 % PLATELET COUNT (test code = 1015) 224 K/UL CBC W/AUTO [id number] 00:00:00 Test Item Value Reference Range Interpretation Comments WBC (test code = 1001) 6.9 K/UL RBC (test code = 1002) 4.15 M/UL HEMOGLOBIN (test code = 1003) 12.1 G/DL HEMATOCRIT (test code = 1004) 36.1 % MCV (test code = 1005) 87.0 fL MCH (test code = 1006) 29.2 PG MCHC (test code = 1007) 33.5 G/DL RDW (test code = 1038) 12.9 % NEUTROPHILS (test code = 1008) 60.0 % LYMPHOCYTES (test code = 1010) 29.2 % MONOCYTES (test code = 1011) 7.2 % EOSINOPHILS (test code = 1012) 2.9 % BASOPHILS (test code = 1013) 0.7 % PLATELET COUNT (test code = 1015) 224 K/UL HEMOGLOBIN [id number] 00:00:00 Test Item Value Reference Range Interpretation Comments HEMOGLOBIN A1c (test code = 99667) 5.2 % HEMOGLOBIN [id number] 00:00:00 Test Item Value Reference Range Interpretation Comments HEMOGLOBIN A1c (test code = 67981) 5.2 % THYROID II PROFILE (T3U, T4, T7, TSH)2020 00:00:00 Test Item Value Reference Range Interpretation Comments T-UPTAKE (test code = 2817) 30.2 % THYROX. BIND. CAPAC. (test code 1.1 = 60700) T4 (THYROXINE) (test code = 8.0 UG/DL 2819) CORRECTED T4 (FTI) (test code = 7.3 UG/DL 2820) TSH, THIRD GENERATION (test code 1.840 UIU/ML = 2821) COMPREHENSIVE METABOLIC [id number] 00:00:00 Test Item Value Reference Range Interpretation Comments GLUCOSE (test code = 2217) 111 MG/DL BUN (test code = 2208) 14 MG/DL CREATININE (test code = 2214) 0.84 MG/DL eGFR AMER. (test code 95 ML/MIN/1.73 = 27775) eGFR NON- AMER. (test 82 ML/MIN/1.73 code = 52661) CALC BUN/CREAT (test code = 17 RATIO 2235) SODIUM (test code = 2231) 139 MEQ/L POTASSIUM (test code = 2228) 4.1 MEQ/L CHLORIDE (test code = 2215) 102 MEQ/L CARBON DIOXIDE (test code = 28 MEQ/L 220) CALCIUM (test code = 2209) 9.4 MG/DL PROTEIN, TOTAL (test code = 7.4 G/DL 2228) ALBUMIN (test code = 2201) 4.4 G/DL CALC GLOBULIN (test code = 3.0 G/DL 2240) CALC A/G RATIO (test code = 1.5 RATIO 2234) BILIRUBIN, TOTAL (test code = 0.5 MG/DL 2206) ALKALINE PHOSPHATASE (test 71 U/L code = 2204) AST (test code = 2218) 22 U/L ALT (test code = 2219) 25 U/L COMPREHENSIVE METABOLIC [id number] 00:00:00 Test Item Value Reference Range Interpretation Comments GLUCOSE (test code = 2217) 111 MG/DL BUN (test code = 2208) 14 MG/DL CREATININE (test code = 2214) 0.84 MG/DL eGFR AMER. (test code 95 ML/MIN/1.73 = 43603) eGFR NON- AMER. (test 82 ML/MIN/1.73 code = 58009) CALC BUN/CREAT (test code = 17 RATIO 2235) SODIUM (test code = 2231) 139 MEQ/L POTASSIUM (test code = 2228) 4.1 MEQ/L CHLORIDE (test code = 2215) 102 MEQ/L CARBON DIOXIDE (test code = 28 MEQ/L 2205) CALCIUM (test code = 2209) 9.4 MG/DL PROTEIN, TOTAL (test code = 7.4 G/DL 2228) ALBUMIN (test code = 2201) 4.4 G/DL CALC GLOBULIN (test code = 3.0 G/DL 2240) CALC A/G RATIO (test code = 1.5 RATIO 2234) BILIRUBIN, TOTAL (test code = 0.5 MG/DL 2206) ALKALINE PHOSPHATASE (test 71 U/L code = 2204) AST (test code = 2218) 22 U/L ALT (test code = 2219) 25 U/L LIPID [id number] 00:00:00 Test Item Value Reference Range Interpretation Comments CHOLESTEROL (test code = 2210) 152 MG/DL TRIGLYCERIDES (test code = 2232) 143 MG/DL HDL CHOLESTEROL (test code = 2220) 36 MG/DL CALC LDL CHOL (test code = 2237) 92 MG/DL RISK RATIO LDL/HDL (test code = 2.56 RATIO 2238) CBC W/AUTO [id number] 00:00:00 Test Item Value Reference Range Interpretation Comments WBC (test code = 1001) 6.9 K/UL RBC (test code = 1002) 4.15 M/UL HEMOGLOBIN (test code = 1003) 12.1 G/DL HEMATOCRIT (test code = 1004) 36.1 % MCV (test code = 1005) 87.0 fL MCH (test code = 1006) 29.2 PG MCHC (test code = 1007) 33.5 G/DL RDW (test code = 1038) 12.9 % NEUTROPHILS (test code = 1008) 60.0 % LYMPHOCYTES (test code = 1010) 29.2 % MONOCYTES (test code = 1011) 7.2 % EOSINOPHILS (test code = 1012) 2.9 % BASOPHILS (test code = 1013) 0.7 % PLATELET COUNT (test code = 1015) 224 K/UL CBC W/AUTO [id number] 00:00:00 Test Item Value Reference Range Interpretation Comments WBC (test code = 1001) 6.9 K/UL RBC (test code = 1002) 4.15 M/UL HEMOGLOBIN (test code = 1003) 12.1 G/DL HEMATOCRIT (test code = 1004) 36.1 % MCV (test code = 1005) 87.0 fL MCH (test code = 1006) 29.2 PG MCHC (test code = 1007) 33.5 G/DL RDW (test code = 1038) 12.9 % NEUTROPHILS (test code = 1008) 60.0 % LYMPHOCYTES (test code = 1010) 29.2 % MONOCYTES (test code = 1011) 7.2 % EOSINOPHILS (test code = 1012) 2.9 % BASOPHILS (test code = 1013) 0.7 % PLATELET COUNT (test code = 1015) 224 K/UL HEMOGLOBIN [id number] 00:00:00 Test Item Value Reference Range Interpretation Comments HEMOGLOBIN A1c (test code = 49750) 5.2 % HEMOGLOBIN [id number] 00:00:00 Test Item Value Reference Range Interpretation Comments HEMOGLOBIN A1c (test code = 42037) 5.2 % THYROID II PROFILE (T3U, T4, T7, TSH)2020 00:00:00 Test Item Value Reference Range Interpretation Comments T-UPTAKE (test code = 2817) 30.2 % THYROX. BIND. CAPAC. (test code 1.1 = 18654) T4 (THYROXINE) (test code = 8.0 UG/DL 2819) CORRECTED T4 (FTI) (test code = 7.3 UG/DL 2820) TSH, THIRD GENERATION (test code 1.840 UIU/ML = 2821) LIPID [id number] 00:00:00 Test Item Value Reference Range Interpretation Comments CHOLESTEROL (test code = 2210) 152 MG/DL TRIGLYCERIDES (test code = 2232) 143 MG/DL HDL CHOLESTEROL (test code = 2220) 36 MG/DL CALC LDL CHOL (test code = 2237) 92 MG/DL RISK RATIO LDL/HDL (test code = 2.56 RATIO 2238) CBC W/AUTO [id number] 00:00:00 Test Item Value Reference Range Interpretation Comments WBC (test code = 1001) 6.9 K/UL RBC (test code = 1002) 4.15 M/UL HEMOGLOBIN (test code = 1003) 12.1 G/DL HEMATOCRIT (test code = 1004) 36.1 % MCV (test code = 1005) 87.0 fL MCH (test code = 1006) 29.2 PG MCHC (test code = 1007) 33.5 G/DL RDW (test code = 1038) 12.9 % NEUTROPHILS (test code = 1008) 60.0 % LYMPHOCYTES (test code = 1010) 29.2 % MONOCYTES (test code = 1011) 7.2 % EOSINOPHILS (test code = 1012) 2.9 % BASOPHILS (test code = 1013) 0.7 % PLATELET COUNT (test code = 1015) 224 K/UL CBC W/AUTO [id number] 00:00:00 Test Item Value Reference Range Interpretation Comments WBC (test code = 1001) 6.9 K/UL RBC (test code = 1002) 4.15 M/UL HEMOGLOBIN (test code = 1003) 12.1 G/DL HEMATOCRIT (test code = 1004) 36.1 % MCV (test code = 1005) 87.0 fL MCH (test code = 1006) 29.2 PG MCHC (test code = 1007) 33.5 G/DL RDW (test code = 1038) 12.9 % NEUTROPHILS (test code = 1008) 60.0 % LYMPHOCYTES (test code = 1010) 29.2 % MONOCYTES (test code = 1011) 7.2 % EOSINOPHILS (test code = 1012) 2.9 % BASOPHILS (test code = 1013) 0.7 % PLATELET COUNT (test code = 1015) 224 K/UL HEMOGLOBIN [id number] 00:00:00 Test Item Value Reference Range Interpretation Comments HEMOGLOBIN A1c (test code = 50194) 5.2 % COMPREHENSIVE METABOLIC [id number] 00:00:00 Test Item Value Reference Range Interpretation Comments GLUCOSE (test code = 2217) 111 MG/DL BUN (test code = 2208) 14 MG/DL CREATININE (test code = 2214) 0.84 MG/DL eGFR AMER. (test code 95 ML/MIN/1.73 = 31006) eGFR NON- AMER. (test 82 ML/MIN/1.73 code = 37230) CALC BUN/CREAT (test code = 17 RATIO 2235) SODIUM (test code = 2231) 139 MEQ/L POTASSIUM (test code = 2228) 4.1 MEQ/L CHLORIDE (test code = 2215) 102 MEQ/L CARBON DIOXIDE (test code = 28 MEQ/L 2206) CALCIUM (test code = 2209) 9.4 MG/DL PROTEIN, TOTAL (test code = 7.4 G/DL 2228) ALBUMIN (test code = 2201) 4.4 G/DL CALC GLOBULIN (test code = 3.0 G/DL 2240) CALC A/G RATIO (test code = 1.5 RATIO 2234) BILIRUBIN, TOTAL (test code = 0.5 MG/DL 2206) ALKALINE PHOSPHATASE (test 71 U/L code = 2204) AST (test code = 2218) 22 U/L ALT (test code = 2219) 25 U/L COMPREHENSIVE METABOLIC [id number] 00:00:00 Test Item Value Reference Range Interpretation Comments GLUCOSE (test code = 2217) 111 MG/DL BUN (test code = 2208) 14 MG/DL CREATININE (test code = 2214) 0.84 MG/DL eGFR AMER. (test code 95 ML/MIN/1.73 = 01808) eGFR NON- AMER. (test 82 ML/MIN/1.73 code = 62728) CALC BUN/CREAT (test code = 17 RATIO 2235) SODIUM (test code = 2231) 139 MEQ/L POTASSIUM (test code = 2228) 4.1 MEQ/L CHLORIDE (test code = 2215) 102 MEQ/L CARBON DIOXIDE (test code = 28 MEQ/L 2205) CALCIUM (test code = 2209) 9.4 MG/DL PROTEIN, TOTAL (test code = 7.4 G/DL 2228) ALBUMIN (test code = 220) 4.4 G/DL CALC GLOBULIN (test code = 3.0 G/DL 2239) CALC A/G RATIO (test code = 1.5 RATIO 2233) BILIRUBIN, TOTAL (test code = 0.5 MG/DL 2206) ALKALINE PHOSPHATASE (test 71 U/L code = 220) AST (test code = 2218) 22 U/L ALT (test code = 2219) 25 U/L HEMOGLOBIN [id number] 00:00:00 Test Item Value Reference Range Interpretation Comments HEMOGLOBIN A1c (test code = 59874) 5.2 % LIPID [id number] 00:00:00 Test Item Value Reference Range Interpretation Comments CHOLESTEROL (test code = 2210) 152 MG/DL TRIGLYCERIDES (test code = 2232) 143 MG/DL HDL CHOLESTEROL (test code = 2220) 36 MG/DL CALC LDL CHOL (test code = 2237) 92 MG/DL RISK RATIO LDL/HDL (test code = 2.56 RATIO 2238) LIPID [id number] 00:00:00 Test Item Value Reference Range Interpretation Comments CHOLESTEROL (test code = 2210) 152 MG/DL TRIGLYCERIDES (test code = 2232) 143 MG/DL HDL CHOLESTEROL (test code = 2220) 36 MG/DL CALC LDL CHOL (test code = 2237) 92 MG/DL RISK RATIO LDL/HDL (test code = 2.56 RATIO 2238) CBC W/AUTO [id number] 00:00:00 Test Item Value Reference Range Interpretation Comments WBC (test code = 1001) 6.9 K/UL RBC (test code = 1002) 4.15 M/UL HEMOGLOBIN (test code = 1003) 12.1 G/DL HEMATOCRIT (test code = 1004) 36.1 % MCV (test code = 1005) 87.0 fL MCH (test code = 1006) 29.2 PG MCHC (test code = 1007) 33.5 G/DL RDW (test code = 1038) 12.9 % NEUTROPHILS (test code = 1008) 60.0 % LYMPHOCYTES (test code = 1010) 29.2 % MONOCYTES (test code = 1011) 7.2 % EOSINOPHILS (test code = 1012) 2.9 % BASOPHILS (test code = 1013) 0.7 % PLATELET COUNT (test code = 1015) 224 K/UL CBC W/AUTO [id number] 00:00:00 Test Item Value Reference Range Interpretation Comments WBC (test code = 1001) 6.9 K/UL RBC (test code = 1002) 4.15 M/UL HEMOGLOBIN (test code = 1003) 12.1 G/DL HEMATOCRIT (test code = 1004) 36.1 % MCV (test code = 1005) 87.0 fL MCH (test code = 1006) 29.2 PG MCHC (test code = 1007) 33.5 G/DL RDW (test code = 1038) 12.9 % NEUTROPHILS (test code = 1008) 60.0 % LYMPHOCYTES (test code = 1010) 29.2 % MONOCYTES (test code = 1011) 7.2 % EOSINOPHILS (test code = 1012) 2.9 % BASOPHILS (test code = 1013) 0.7 % PLATELET COUNT (test code = 1015) 224 K/UL SARS-CoV-2 (COVID-19) by RT-PCR (HIGH RISK)2020-04-19 00:00:00 Test Item Value Reference Range Interpretation Comments SARS-CoV-2 INTERPRETATION Negative (test code = 84177) SOURCE (test code = 87830) Nasal_Swab_in_VTM__ UTM SARS-CoV-2 (COVID-19) by RT-PCR (HIGH RISK)2020-04-19 00:00:00 Test Item Value Reference Range Interpretation Comments SARS-CoV-2 INTERPRETATION Negative (test code = 02963) SOURCE (test code = 17628) Nasal_Swab_in_VTM__ UTM SARS-CoV-2 (COVID-19) by RT-PCR (HIGH RISK)2020-04-19 00:00:00 Test Item Value Reference Range Interpretation Comments SARS-CoV-2 INTERPRETATION Negative (test code = 39008) SOURCE (test code = 20504) Nasal_Swab_in_VTM__ UTM SARS-CoV-2 (COVID-19) by RT-PCR (HIGH RISK)2020-04-19 00:00:00 Test Item Value Reference Range Interpretation Comments SARS-CoV-2 INTERPRETATION Negative (test code = 72725) SOURCE (test code = 36964) Nasal_Swab_in_VTM__ UTM SARS-CoV-2 (COVID-19) by RT-PCR (HIGH RISK)2020-04-19 00:00:00 Test Item Value Reference Range Interpretation Comments SARS-CoV-2 INTERPRETATION Negative (test code = 39249) SOURCE (test code = 38667) Nasal_Swab_in_VTM__ UTM SARS-CoV-2 (COVID-19) by RT-PCR (HIGH RISK)2020-04-19 00:00:00 Test Item Value Reference Range Interpretation Comments SARS-CoV-2 INTERPRETATION Negative (test code = 25182) SOURCE (test code = 89908) Nasal_Swab_in_VTM__ UTM GC & CHLAMYDIA AMPLIFIED [id number] 19:39:00 Test Item Value Reference Range Interpretation Comments C. trachomatis Nucleic Negative Negative Acid (test code = 69488-6) N. gonorrhoeae Nucleic Negative Negative Acid (test code = 62499-7) KATELIN (test code = KATELIN) Reliable results [...] NAAT. Lab Interpretation Normal (test code = 14200-1) [facility]PLIFIED [id number] 19:39:00 Test Item Value Reference Range Interpretation Comments C. trachomatis Nucleic Negative Negative Acid (test code = 89951-3) N. gonorrhoeae Nucleic Negative Negative Acid (test code = 08557-4) KATELIN (test code = KATELIN) Reliable results [...] NAAT. Lab Interpretation Normal (test code = 88768-7) [facility] [id number] 04:35:00 Test Item Value Reference Range Interpretation Comments HIV Negative Negative Semi-quantitative (test code = 50652-0) KATELIN (test code = Non-reactive for HIV-1 KATELIN) antigen and HIV-1/HIV-2 antibodies. ?No laboratory evidence of HIV infection. ?Repeat in 2-4 weeks if acute HIV infection is suspected. [facility] [id number] 04:35:00 Test Item Value Reference Range Interpretation Comments HIV Negative Negative Semi-quantitative (test code = 82210-7) KATELIN (test code = Non-reactive for HIV-1 KATELIN) antigen and HIV-1/HIV-2 antibodies. ?No laboratory evidence of HIV infection. ?Repeat in 2-4 weeks if acute HIV infection is suspected. [facility] [id number] 00:00:00 Test Item Value Reference Range Interpretation Comments GLUCOSE (test code = 2217) 108 MG/DL BUN (test code = 2208) 15 MG/DL CREATININE (test code = 2214) 0.79 MG/DL eGFR AMER. (test code 103 ML/MIN/1.73 = 79088) eGFR NON- AMER. (test 89 ML/MIN/1.73 code = 56833) CALC BUN/CREAT (test code = 19 RATIO 2235) SODIUM (test code = 2231) 140 MEQ/L POTASSIUM (test code = 2228) 3.9 MEQ/L CHLORIDE (test code = 2215) 101 MEQ/L CARBON DIOXIDE (test code = 26 MEQ/L 2205) CALCIUM (test code = 2209) 9.3 MG/DL PROTEIN, TOTAL (test code = 7.7 G/DL 2228) ALBUMIN (test code = 2201) 4.5 G/DL CALC GLOBULIN (test code = 3.2 G/DL 2240) CALC A/G RATIO (test code = 1.4 RATIO 2234) BILIRUBIN, TOTAL (test code = 0.3 MG/DL 2206) ALKALINE PHOSPHATASE (test 81 U/L code = 2204) AST (test code = 2218) 21 U/L ALT (test code = 2219) 22 U/L COMPREHENSIVE METABOLIC [id number] 00:00:00 Test Item Value Reference Range Interpretation Comments GLUCOSE (test code = 2217) 108 MG/DL BUN (test code = 2208) 15 MG/DL CREATININE (test code = 2214) 0.79 MG/DL eGFR AMER. (test code 103 ML/MIN/1.73 = 82036) eGFR NON- AMER. (test 89 ML/MIN/1.73 code = 14355) CALC BUN/CREAT (test code = 19 RATIO 2235) SODIUM (test code = 2231) 140 MEQ/L POTASSIUM (test code = 2228) 3.9 MEQ/L CHLORIDE (test code = 2215) 101 MEQ/L CARBON DIOXIDE (test code = 26 MEQ/L 2205) CALCIUM (test code = 2209) 9.3 MG/DL PROTEIN, TOTAL (test code = 7.7 G/DL 2228) ALBUMIN (test code = 2201) 4.5 G/DL CALC GLOBULIN (test code = 3.2 G/DL 2240) CALC A/G RATIO (test code = 1.4 RATIO 2234) BILIRUBIN, TOTAL (test code = 0.3 MG/DL 2206) ALKALINE PHOSPHATASE (test 81 U/L code = 2204) AST (test code = 2218) 21 U/L ALT (test code = 2219) 22 U/L COMPREHENSIVE METABOLIC [id number] 00:00:00 Test Item Value Reference Range Interpretation Comments GLUCOSE (test code = 2217) 108 MG/DL BUN (test code = 2208) 15 MG/DL CREATININE (test code = 2214) 0.79 MG/DL eGFR AMER. (test code 103 ML/MIN/1.73 = 71111) eGFR NON- AMER. (test 89 ML/MIN/1.73 code = 71900) CALC BUN/CREAT (test code = 19 RATIO 2235) SODIUM (test code = 2231) 140 MEQ/L POTASSIUM (test code = 2228) 3.9 MEQ/L CHLORIDE (test code = 2215) 101 MEQ/L CARBON DIOXIDE (test code = 26 MEQ/L 2205) CALCIUM (test code = 2209) 9.3 MG/DL PROTEIN, TOTAL (test code = 7.7 G/DL 2228) ALBUMIN (test code = 2201) 4.5 G/DL CALC GLOBULIN (test code = 3.2 G/DL 2240) CALC A/G RATIO (test code = 1.4 RATIO 2234) BILIRUBIN, TOTAL (test code = 0.3 MG/DL 2206) ALKALINE PHOSPHATASE (test 81 U/L code = 2204) AST (test code = 2218) 21 U/L ALT (test code = 2219) 22 U/L COMPREHENSIVE METABOLIC [id number] 00:00:00 Test Item Value Reference Range Interpretation Comments GLUCOSE (test code = 2217) 108 MG/DL BUN (test code = 2208) 15 MG/DL CREATININE (test code = 2214) 0.79 MG/DL eGFR AMER. (test code 103 ML/MIN/1.73 = 40642) eGFR NON- AMER. (test 89 ML/MIN/1.73 code = 73767) CALC BUN/CREAT (test code = 19 RATIO 2235) SODIUM (test code = 2231) 140 MEQ/L POTASSIUM (test code = 2228) 3.9 MEQ/L CHLORIDE (test code = 2215) 101 MEQ/L CARBON DIOXIDE (test code = 26 MEQ/L 220) CALCIUM (test code = 2209) 9.3 MG/DL PROTEIN, TOTAL (test code = 7.7 G/DL 2228) ALBUMIN (test code = 2201) 4.5 G/DL CALC GLOBULIN (test code = 3.2 G/DL 2240) CALC A/G RATIO (test code = 1.4 RATIO 2234) BILIRUBIN, TOTAL (test code = 0.3 MG/DL 2206) ALKALINE PHOSPHATASE (test 81 U/L code = 2204) AST (test code = 2218) 21 U/L ALT (test code = 2219) 22 U/L COMPREHENSIVE METABOLIC [id number] 00:00:00 Test Item Value Reference Range Interpretation Comments GLUCOSE (test code = 2217) 108 MG/DL BUN (test code = 2208) 15 MG/DL CREATININE (test code = 2214) 0.79 MG/DL eGFR AMER. (test code 103 ML/MIN/1.73 = 81491) eGFR NON- AMER. (test 89 ML/MIN/1.73 code = 22191) CALC BUN/CREAT (test code = 19 RATIO 2235) SODIUM (test code = 2231) 140 MEQ/L POTASSIUM (test code = 2228) 3.9 MEQ/L CHLORIDE (test code = 2215) 101 MEQ/L CARBON DIOXIDE (test code = 26 MEQ/L 220) CALCIUM (test code = 2209) 9.3 MG/DL PROTEIN, TOTAL (test code = 7.7 G/DL 2228) ALBUMIN (test code = 2201) 4.5 G/DL CALC GLOBULIN (test code = 3.2 G/DL 2240) CALC A/G RATIO (test code = 1.4 RATIO 2234) BILIRUBIN, TOTAL (test code = 0.3 MG/DL 2206) ALKALINE PHOSPHATASE (test 81 U/L code = 2204) AST (test code = 2218) 21 U/L ALT (test code = 2219) 22 U/L COMPREHENSIVE METABOLIC [id number] 00:00:00 Test Item Value Reference Range Interpretation Comments GLUCOSE (test code = 2217) 108 MG/DL BUN (test code = 2208) 15 MG/DL CREATININE (test code = 2214) 0.79 MG/DL eGFR AMER. (test code 103 ML/MIN/1.73 = 48116) eGFR NON- AMER. (test 89 ML/MIN/1.73 code = 20507) CALC BUN/CREAT (test code = 19 RATIO 2235) SODIUM (test code = 2231) 140 MEQ/L POTASSIUM (test code = 2228) 3.9 MEQ/L CHLORIDE (test code = 2215) 101 MEQ/L CARBON DIOXIDE (test code = 26 MEQ/L 2205) CALCIUM (test code = 2209) 9.3 MG/DL PROTEIN, TOTAL (test code = 7.7 G/DL 2228) ALBUMIN (test code = 2201) 4.5 G/DL CALC GLOBULIN (test code = 3.2 G/DL 2239) CALC A/G RATIO (test code = 1.4 RATIO 2234) BILIRUBIN, TOTAL (test code = 0.3 MG/DL 2206) ALKALINE PHOSPHATASE (test 81 U/L code = 2204) AST (test code = 2218) 21 U/L ALT (test code = 2219) 22 U/L COMPREHENSIVE METABOLIC [id number] 00:00:00 Test Item Value Reference Range Interpretation Comments GLUCOSE (test code = 2217) 108 MG/DL BUN (test code = 2208) 15 MG/DL CREATININE (test code = 2214) 0.79 MG/DL eGFR AMER. (test code 103 ML/MIN/1.73 = 02370) eGFR NON- AMER. (test 89 ML/MIN/1.73 code = 39720) CALC BUN/CREAT (test code = 19 RATIO 2235) SODIUM (test code = 2231) 140 MEQ/L POTASSIUM (test code = 2228) 3.9 MEQ/L CHLORIDE (test code = 2215) 101 MEQ/L CARBON DIOXIDE (test code = 26 MEQ/L 220) CALCIUM (test code = 2209) 9.3 MG/DL PROTEIN, TOTAL (test code = 7.7 G/DL 2228) ALBUMIN (test code = 2201) 4.5 G/DL CALC GLOBULIN (test code = 3.2 G/DL 2240) CALC A/G RATIO (test code = 1.4 RATIO 2234) BILIRUBIN, TOTAL (test code = 0.3 MG/DL 2207) ALKALINE PHOSPHATASE (test 81 U/L code = 2204) AST (test code = 2218) 21 U/L ALT (test code = 2219) 22 U/L SARAH TITER AND PATTERN [REFLEX]2019-10-09 00:00:00 Test Item Value Reference Range Interpretation Comments PATTERN (test code = 77242) SPECKLED SARAH TITER (test code = 3550) 1:160 TITER PATTERN 2 (test code = 08898) HOMOGENEOUS SARAH TITER 2 (test code = 59601) 1:160 TITER METHOD (test code = 87981) (NOTE) SARAH TITER AND PATTERN [REFLEX]2019-10-09 00:00:00 Test Item Value Reference Range Interpretation Comments PATTERN (test code = 96881) SPECKLED SARAH TITER (test code = 3550) 1:160 TITER PATTERN 2 (test code = 00354) HOMOGENEOUS SARAH TITER 2 (test code = 34553) 1:160 TITER METHOD (test code = 11547) (NOTE) SARAH TITER AND PATTERN [REFLEX]2019-10-09 00:00:00 Test Item Value Reference Range Interpretation Comments PATTERN (test code = 83702) SPECKLED SARAH TITER (test code = 3550) 1:160 TITER PATTERN 2 (test code = 82175) HOMOGENEOUS SARAH TITER 2 (test code = 14530) 1:160 TITER METHOD (test code = 92718) (NOTE) SARAH TITER AND PATTERN [REFLEX]2019-10-09 00:00:00 Test Item Value Reference Range Interpretation Comments PATTERN (test code = 95212) SPECKLED SARAH TITER (test code = 3550) 1:160 TITER PATTERN 2 (test code = 29570) HOMOGENEOUS SARAH TITER 2 (test code = 39112) 1:160 TITER METHOD (test code = 83162) (NOTE) SARAH TITER AND PATTERN [REFLEX]2019-10-09 00:00:00 Test Item Value Reference Range Interpretation Comments PATTERN (test code = 25958) SPECKLED SARAH TITER (test code = 3550) 1:160 TITER PATTERN 2 (test code = 42714) HOMOGENEOUS SARAH TITER 2 (test code = 77539) 1:160 TITER METHOD (test code = 43448) (NOTE) SARAH TITER AND PATTERN [REFLEX]2019-10-09 00:00:00 Test Item Value Reference Range Interpretation Comments PATTERN (test code = 26005) SPECKLED SARAH TITER (test code = 3550) 1:160 TITER PATTERN 2 (test code = 06971) HOMOGENEOUS SARAH TITER 2 (test code = 49642) 1:160 TITER METHOD (test code = 28607) (NOTE) RHEUMATOID FACTOR, [id number] 00:00:00 Test Item Value Reference Range Interpretation Comments RHEUMATOID FACTOR, QUANT (test code <10 IU/ML = 3502) SEDIMENTATION [id number] 00:00:00 Test Item Value Reference Range Interpretation Comments SEDIMENTATION RATE (test code = 12 MM/HOUR 1017) SEDIMENTATION [id number] 00:00:00 Test Item Value Reference Range Interpretation Comments SEDIMENTATION RATE (test code = 12 MM/HOUR 1017) SARAH (ANTI-NUCLEAR AB) WITH REFLEX [id number] 00:00:00 Test Item Value Reference Range Interpretation Comments ANTI-NUCLEAR ANTIBODIES (test code = POSITIVE 3506) SARAH (ANTI-NUCLEAR AB) WITH REFLEX [id number] 00:00:00 Test Item Value Reference Range Interpretation Comments ANTI-NUCLEAR ANTIBODIES (test code = POSITIVE 3506) HEMOGLOBIN [id number] 00:00:00 Test Item Value Reference Range Interpretation Comments HEMOGLOBIN A1c (test code = 99509) 4.8 % HEMOGLOBIN [id number] 00:00:00 Test Item Value Reference Range Interpretation Comments HEMOGLOBIN A1c (test code = 94221) 4.8 % HEMOGLOBIN [id number] 00:00:00 Test Item Value Reference Range Interpretation Comments HEMOGLOBIN A1c (test code = 41780) 4.8 % HEMOGLOBIN [id number] 00:00:00 Test Item Value Reference Range Interpretation Comments HEMOGLOBIN A1c (test code = 31248) 4.8 % HEMOGLOBIN [id number] 00:00:00 Test Item Value Reference Range Interpretation Comments HEMOGLOBIN A1c (test code = 70205) 4.8 % URIC [id number] 00:00:00 Test Item Value Reference Range Interpretation Comments URIC ACID (test code = 2233) 4.9 MG/DL C-REACTIVE [id number] 00:00:00 Test Item Value Reference Range Interpretation Comments C-REACTIVE PROTEIN (test code = 0.7 MG/DL 3513) RHEUMATOID FACTOR, [id number] 00:00:00 Test Item Value Reference Range Interpretation Comments RHEUMATOID FACTOR, QUANT (test code <10 IU/ML = 3502) RHEUMATOID FACTOR, [id number] 00:00:00 Test Item Value Reference Range Interpretation Comments RHEUMATOID FACTOR, QUANT (test code <10 IU/ML = 3502) SEDIMENTATION [id number] 00:00:00 Test Item Value Reference Range Interpretation Comments SEDIMENTATION RATE (test code = 12 MM/HOUR 1017) SARAH (ANTI-NUCLEAR AB) WITH REFLEX [id number] 00:00:00 Test Item Value Reference Range Interpretation Comments ANTI-NUCLEAR ANTIBODIES (test code = POSITIVE 3506) HEMOGLOBIN [id number] 00:00:00 Test Item Value Reference Range Interpretation Comments HEMOGLOBIN A1c (test code = 06138) 4.8 % HEMOGLOBIN [id number] 00:00:00 Test Item Value Reference Range Interpretation Comments HEMOGLOBIN A1c (test code = 65814) 4.8 % URIC [id number] 00:00:00 Test Item Value Reference Range Interpretation Comments URIC ACID (test code = 2233) 4.9 MG/DL C-REACTIVE [id number] 00:00:00 Test Item Value Reference Range Interpretation Comments C-REACTIVE PROTEIN (test code = 0.7 MG/DL 3513) RHEUMATOID FACTOR, [id number] 00:00:00 Test Item Value Reference Range Interpretation Comments RHEUMATOID FACTOR, QUANT (test code <10 IU/ML = 3502) RHEUMATOID FACTOR, [id number] 00:00:00 Test Item Value Reference Range Interpretation Comments RHEUMATOID FACTOR, QUANT (test code <10 IU/ML = 3502) SEDIMENTATION [id number] 00:00:00 Test Item Value Reference Range Interpretation Comments SEDIMENTATION RATE (test code = 12 MM/HOUR 1017) SARAH (ANTI-NUCLEAR AB) WITH REFLEX [id number] 00:00:00 Test Item Value Reference Range Interpretation Comments ANTI-NUCLEAR ANTIBODIES (test code = POSITIVE 3506) HEMOGLOBIN [id number] 00:00:00 Test Item Value Reference Range Interpretation Comments HEMOGLOBIN A1c (test code = 56456) 4.8 % HEMOGLOBIN [id number] 00:00:00 Test Item Value Reference Range Interpretation Comments HEMOGLOBIN A1c (test code = 52823) 4.8 % URIC [id number] 00:00:00 Test Item Value Reference Range Interpretation Comments URIC ACID (test code = 2233) 4.9 MG/DL C-REACTIVE [id number] 00:00:00 Test Item Value Reference Range Interpretation Comments C-REACTIVE PROTEIN (test code = 0.7 MG/DL 3513) RHEUMATOID FACTOR, [id number] 00:00:00 Test Item Value Reference Range Interpretation Comments RHEUMATOID FACTOR, QUANT (test code <10 IU/ML = 3502) RHEUMATOID FACTOR, [id number] 00:00:00 Test Item Value Reference Range Interpretation Comments RHEUMATOID FACTOR, QUANT (test code <10 IU/ML = 3502) SEDIMENTATION [id number] 00:00:00 Test Item Value Reference Range Interpretation Comments SEDIMENTATION RATE (test code = 12 MM/HOUR 1017) SARAH (ANTI-NUCLEAR AB) WITH REFLEX [id number] 00:00:00 Test Item Value Reference Range Interpretation Comments ANTI-NUCLEAR ANTIBODIES (test code = POSITIVE 3506) HEMOGLOBIN [id number] 00:00:00 Test Item Value Reference Range Interpretation Comments HEMOGLOBIN A1c (test code = 90224) 4.8 % HEMOGLOBIN [id number] 00:00:00 Test Item Value Reference Range Interpretation Comments HEMOGLOBIN A1c (test code = 07559) 4.8 % URIC [id number] 00:00:00 Test Item Value Reference Range Interpretation Comments URIC ACID (test code = 2233) 4.9 MG/DL URIC [id number] 00:00:00 Test Item Value Reference Range Interpretation Comments URIC ACID (test code = 2233) 4.9 MG/DL C-REACTIVE [id number] 00:00:00 Test Item Value Reference Range Interpretation Comments C-REACTIVE PROTEIN (test code = 0.7 MG/DL 3513) RHEUMATOID FACTOR, [id number] 00:00:00 Test Item Value Reference Range Interpretation Comments RHEUMATOID FACTOR, QUANT (test code <10 IU/ML = 3502) RHEUMATOID FACTOR, [id number] 00:00:00 Test Item Value Reference Range Interpretation Comments RHEUMATOID FACTOR, QUANT (test code <10 IU/ML = 3502) SEDIMENTATION [id number] 00:00:00 Test Item Value Reference Range Interpretation Comments SEDIMENTATION RATE (test code = 12 MM/HOUR 1017) SARAH (ANTI-NUCLEAR AB) WITH REFLEX [id number] 00:00:00 Test Item Value Reference Range Interpretation Comments ANTI-NUCLEAR ANTIBODIES (test code = POSITIVE 3506) HEMOGLOBIN [id number] 00:00:00 Test Item Value Reference Range Interpretation Comments HEMOGLOBIN A1c (test code = 26991) 4.8 % HEMOGLOBIN [id number] 00:00:00 Test Item Value Reference Range Interpretation Comments HEMOGLOBIN A1c (test code = 37386) 4.8 % C-REACTIVE [id number] 00:00:00 Test Item Value Reference Range Interpretation Comments C-REACTIVE PROTEIN (test code = 0.7 MG/DL 3513) RHEUMATOID FACTOR, [id number] 00:00:00 Test Item Value Reference Range Interpretation Comments RHEUMATOID FACTOR, QUANT (test code <10 IU/ML = 3502) RHEUMATOID FACTOR, [id number] 00:00:00 Test Item Value Reference Range Interpretation Comments RHEUMATOID FACTOR, QUANT (test code <10 IU/ML = 3502) SEDIMENTATION [id number] 00:00:00 Test Item Value Reference Range Interpretation Comments SEDIMENTATION RATE (test code = 12 MM/HOUR 1017) URIC [id number] 00:00:00 Test Item Value Reference Range Interpretation Comments URIC ACID (test code = 2233) 4.9 MG/DL URIC [id number] 00:00:00 Test Item Value Reference Range Interpretation Comments URIC ACID (test code = 2233) 4.9 MG/DL C-REACTIVE [id number] 00:00:00 Test Item Value Reference Range Interpretation Comments C-REACTIVE PROTEIN (test code = 0.7 MG/DL 3513) C-REACTIVE [id number] 00:00:00 Test Item Value Reference Range Interpretation Comments C-REACTIVE PROTEIN (test code = 0.7 MG/DL 3513) RHEUMATOID FACTOR, [id number] 00:00:00 Test Item Value Reference Range Interpretation Comments RHEUMATOID FACTOR, QUANT (test code <10 IU/ML = 3502) RHEUMATOID FACTOR, [id number] 00:00:00 Test Item Value Reference Range Interpretation Comments RHEUMATOID FACTOR, QUANT (test code <10 IU/ML = 3502) SARAH (ANTI-NUCLEAR AB) WITH REFLEX [id number] 00:00:00 Test Item Value Reference Range Interpretation Comments ANTI-NUCLEAR ANTIBODIES (test code = POSITIVE 3506) COMPREHENSIVE METABOLIC [id number] 00:00:00 Test Item Value Reference Range Interpretation Comments GLUCOSE (test code = 2217) 135 MG/DL BUN (test code = 2208) 12 MG/DL CREATININE (test code = 2214) 0.74 MG/DL eGFR AMER. (test code 111 ML/MIN/1.73 = 39635) eGFR NON- AMER. (test 96 ML/MIN/1.73 code = 62146) CALC BUN/CREAT (test code = 16 RATIO 2235) SODIUM (test code = 2231) 141 MEQ/L POTASSIUM (test code = 2228) 3.4 MEQ/L CHLORIDE (test code = 2215) 101 MEQ/L CARBON DIOXIDE (test code = 27 MEQ/L 2205) CALCIUM (test code = 2209) 9.6 MG/DL PROTEIN, TOTAL (test code = 7.2 G/DL 2228) ALBUMIN (test code = 2201) 4.4 G/DL CALC GLOBULIN (test code = 2.8 G/DL 2239) CALC A/G RATIO (test code = 1.6 RATIO 2233) BILIRUBIN, TOTAL (test code = 0.3 MG/DL 2206) ALKALINE PHOSPHATASE (test 74 U/L code = 2204) AST (test code = 2218) 30 U/L ALT (test code = 2219) 34 U/L COMPREHENSIVE METABOLIC [id number] 00:00:00 Test Item Value Reference Range Interpretation Comments GLUCOSE (test code = 2217) 135 MG/DL BUN (test code = 2208) 12 MG/DL CREATININE (test code = 2214) 0.74 MG/DL eGFR AMER. (test code 111 ML/MIN/1.73 = 93303) eGFR NON- AMER. (test 96 ML/MIN/1.73 code = 27187) CALC BUN/CREAT (test code = 16 RATIO 2235) SODIUM (test code = 2231) 141 MEQ/L POTASSIUM (test code = 2228) 3.4 MEQ/L CHLORIDE (test code = 2215) 101 MEQ/L CARBON DIOXIDE (test code = 27 MEQ/L 2205) CALCIUM (test code = 2209) 9.6 MG/DL PROTEIN, TOTAL (test code = 7.2 G/DL 2228) ALBUMIN (test code = 2201) 4.4 G/DL CALC GLOBULIN (test code = 2.8 G/DL 2240) CALC A/G RATIO (test code = 1.6 RATIO 2234) BILIRUBIN, TOTAL (test code = 0.3 MG/DL 2206) ALKALINE PHOSPHATASE (test 74 U/L code = 2204) AST (test code = 2218) 30 U/L ALT (test code = 2219) 34 U/L COMPREHENSIVE METABOLIC [id number] 00:00:00 Test Item Value Reference Range Interpretation Comments GLUCOSE (test code = 2217) 135 MG/DL BUN (test code = 2208) 12 MG/DL CREATININE (test code = 2214) 0.74 MG/DL eGFR AMER. (test code 111 ML/MIN/1.73 = 70267) eGFR NON- AMER. (test 96 ML/MIN/1.73 code = 54210) CALC BUN/CREAT (test code = 16 RATIO 2235) SODIUM (test code = 2231) 141 MEQ/L POTASSIUM (test code = 2228) 3.4 MEQ/L CHLORIDE (test code = 2215) 101 MEQ/L CARBON DIOXIDE (test code = 27 MEQ/L 2205) CALCIUM (test code = 2209) 9.6 MG/DL PROTEIN, TOTAL (test code = 7.2 G/DL 2228) ALBUMIN (test code = 2201) 4.4 G/DL CALC GLOBULIN (test code = 2.8 G/DL 2240) CALC A/G RATIO (test code = 1.6 RATIO 2234) BILIRUBIN, TOTAL (test code = 0.3 MG/DL 2206) ALKALINE PHOSPHATASE (test 74 U/L code = 2204) AST (test code = 2218) 30 U/L ALT (test code = 2219) 34 U/L COMPREHENSIVE METABOLIC [id number] 00:00:00 Test Item Value Reference Range Interpretation Comments GLUCOSE (test code = 2217) 135 MG/DL BUN (test code = 2208) 12 MG/DL CREATININE (test code = 2214) 0.74 MG/DL eGFR AMER. (test code 111 ML/MIN/1.73 = 11362) eGFR NON- AMER. (test 96 ML/MIN/1.73 code = 73908) CALC BUN/CREAT (test code = 16 RATIO 2235) SODIUM (test code = 2231) 141 MEQ/L POTASSIUM (test code = 2228) 3.4 MEQ/L CHLORIDE (test code = 2215) 101 MEQ/L CARBON DIOXIDE (test code = 27 MEQ/L 220) CALCIUM (test code = 2209) 9.6 MG/DL PROTEIN, TOTAL (test code = 7.2 G/DL 2228) ALBUMIN (test code = 2201) 4.4 G/DL CALC GLOBULIN (test code = 2.8 G/DL 2240) CALC A/G RATIO (test code = 1.6 RATIO 2234) BILIRUBIN, TOTAL (test code = 0.3 MG/DL 2206) ALKALINE PHOSPHATASE (test 74 U/L code = 2204) AST (test code = 2218) 30 U/L ALT (test code = 2219) 34 U/L COMPREHENSIVE METABOLIC [id number] 00:00:00 Test Item Value Reference Range Interpretation Comments GLUCOSE (test code = 2217) 135 MG/DL BUN (test code = 2208) 12 MG/DL CREATININE (test code = 2214) 0.74 MG/DL eGFR AMER. (test code 111 ML/MIN/1.73 = 24583) eGFR NON- AMER. (test 96 ML/MIN/1.73 code = 23354) CALC BUN/CREAT (test code = 16 RATIO 2235) SODIUM (test code = 2231) 141 MEQ/L POTASSIUM (test code = 2228) 3.4 MEQ/L CHLORIDE (test code = 2215) 101 MEQ/L CARBON DIOXIDE (test code = 27 MEQ/L 220) CALCIUM (test code = 2209) 9.6 MG/DL PROTEIN, TOTAL (test code = 7.2 G/DL 2228) ALBUMIN (test code = 2201) 4.4 G/DL CALC GLOBULIN (test code = 2.8 G/DL 2240) CALC A/G RATIO (test code = 1.6 RATIO 2234) BILIRUBIN, TOTAL (test code = 0.3 MG/DL 2206) ALKALINE PHOSPHATASE (test 74 U/L code = 2204) AST (test code = 2218) 30 U/L ALT (test code = 2219) 34 U/L COMPREHENSIVE METABOLIC [id number] 00:00:00 Test Item Value Reference Range Interpretation Comments GLUCOSE (test code = 2217) 135 MG/DL BUN (test code = 2208) 12 MG/DL CREATININE (test code = 2214) 0.74 MG/DL eGFR AMER. (test code 111 ML/MIN/1.73 = 71275) eGFR NON- AMER. (test 96 ML/MIN/1.73 code = 34361) CALC BUN/CREAT (test code = 16 RATIO 2235) SODIUM (test code = 2231) 141 MEQ/L POTASSIUM (test code = 2228) 3.4 MEQ/L CHLORIDE (test code = 2215) 101 MEQ/L CARBON DIOXIDE (test code = 27 MEQ/L 2205) CALCIUM (test code = 2209) 9.6 MG/DL PROTEIN, TOTAL (test code = 7.2 G/DL 2228) ALBUMIN (test code = 2201) 4.4 G/DL CALC GLOBULIN (test code = 2.8 G/DL 2239) CALC A/G RATIO (test code = 1.6 RATIO 2234) BILIRUBIN, TOTAL (test code = 0.3 MG/DL 2206) ALKALINE PHOSPHATASE (test 74 U/L code = 2204) AST (test code = 2218) 30 U/L ALT (test code = 2219) 34 U/L COMPREHENSIVE METABOLIC [id number] 00:00:00 Test Item Value Reference Range Interpretation Comments GLUCOSE (test code = 2217) 135 MG/DL BUN (test code = 2208) 12 MG/DL CREATININE (test code = 2214) 0.74 MG/DL eGFR AMER. (test code 111 ML/MIN/1.73 = 92927) eGFR NON- AMER. (test 96 ML/MIN/1.73 code = 96718) CALC BUN/CREAT (test code = 16 RATIO 2235) SODIUM (test code = 2231) 141 MEQ/L POTASSIUM (test code = 2228) 3.4 MEQ/L CHLORIDE (test code = 2215) 101 MEQ/L CARBON DIOXIDE (test code = 27 MEQ/L 220) CALCIUM (test code = 2209) 9.6 MG/DL PROTEIN, TOTAL (test code = 7.2 G/DL 2229) ALBUMIN (test code = 2201) 4.4 G/DL CALC GLOBULIN (test code = 2.8 G/DL 2240) CALC A/G RATIO (test code = 1.6 RATIO 2234) BILIRUBIN, TOTAL (test code = 0.3 MG/DL 2207) ALKALINE PHOSPHATASE (test 74 U/L code = 2204) AST (test code = 2218) 30 U/L ALT (test code = 2219) 34 U/L CBC W/AUTO [id number] 00:00:00 Test Item Value Reference Range Interpretation Comments WBC (test code = 1001) 6.8 K/UL RBC (test code = 1002) 3.99 M/UL HEMOGLOBIN (test code = 1003) 12.4 G/DL HEMATOCRIT (test code = 1004) 35.3 % MCV (test code = 1005) 88.5 fL MCH (test code = 1006) 31.1 PG MCHC (test code = 1007) 35.1 G/DL RDW (test code = 1038) 13.4 % NEUTROPHILS (test code = 1008) 60.2 % LYMPHOCYTES (test code = 1010) 28.4 % MONOCYTES (test code = 1011) 8.0 % EOSINOPHILS (test code = 1012) 2.4 % BASOPHILS (test code = 1013) 1.0 % PLATELET COUNT (test code = 1015) 217 K/UL CBC W/AUTO [id number] 00:00:00 Test Item Value Reference Range Interpretation Comments WBC (test code = 1001) 6.8 K/UL RBC (test code = 1002) 3.99 M/UL HEMOGLOBIN (test code = 1003) 12.4 G/DL HEMATOCRIT (test code = 1004) 35.3 % MCV (test code = 1005) 88.5 fL MCH (test code = 1006) 31.1 PG MCHC (test code = 1007) 35.1 G/DL RDW (test code = 1038) 13.4 % NEUTROPHILS (test code = 1008) 60.2 % LYMPHOCYTES (test code = 1010) 28.4 % MONOCYTES (test code = 1011) 8.0 % EOSINOPHILS (test code = 1012) 2.4 % BASOPHILS (test code = 1013) 1.0 % PLATELET COUNT (test code = 1015) 217 K/UL [id number] 00:00:00 Test Item Value Reference Range Interpretation Comments TSH, THIRD GENERATION (test code 1.910 UIU/ML = 2821) HEMOGLOBIN [id number] 00:00:00 Test Item Value Reference Range Interpretation Comments HEMOGLOBIN A1c (test code = 29788) 4.8 % HEMOGLOBIN [id number] 00:00:00 Test Item Value Reference Range Interpretation Comments HEMOGLOBIN A1c (test code = 63668) 4.8 % HEMOGLOBIN [id number] 00:00:00 Test Item Value Reference Range Interpretation Comments HEMOGLOBIN A1c (test code = 03708) 4.8 % [id number] 00:00:00 Test Item Value Reference Range Interpretation Comments TSH, THIRD GENERATION (test code 1.910 UIU/ML = 2821) [id number] 00:00:00 Test Item Value Reference Range Interpretation Comments TSH, THIRD GENERATION (test code 1.910 UIU/ML = 2821) [id number] 00:00:00 Test Item Value Reference Range Interpretation Comments TSH, THIRD GENERATION (test code 1.910 UIU/ML = 2821) COMPREHENSIVE METABOLIC [id number] 00:00:00 Test Item Value Reference Range Interpretation Comments GLUCOSE (test code = 2217) 112 MG/DL BUN (test code = 2208) 10 MG/DL CREATININE (test code = 2214) 0.81 MG/DL eGFR AMER. (test code 100 ML/MIN/1.73 = 52089) eGFR NON- AMER. (test 86 ML/MIN/1.73 code = 51840) CALC BUN/CREAT (test code = 12 RATIO 2235) SODIUM (test code = 2231) 142 MEQ/L POTASSIUM (test code = 2228) 3.8 MEQ/L CHLORIDE (test code = 2215) 103 MEQ/L CARBON DIOXIDE (test code = 27 MEQ/L 2205) CALCIUM (test code = 2209) 8.9 MG/DL PROTEIN, TOTAL (test code = 7.2 G/DL 2228) ALBUMIN (test code = 2201) 4.4 G/DL CALC GLOBULIN (test code = 2.8 G/DL 2239) CALC A/G RATIO (test code = 1.6 RATIO 2234) BILIRUBIN, TOTAL (test code = 0.4 MG/DL 2206) ALKALINE PHOSPHATASE (test 76 U/L code = 2204) AST (test code = 2218) 20 U/L ALT (test code = 2219) 25 U/L LIPID [id number] 00:00:00 Test Item Value Reference Range Interpretation Comments CHOLESTEROL (test code = 2210) 149 MG/DL TRIGLYCERIDES (test code = 2232) 126 MG/DL HDL CHOLESTEROL (test code = 2220) 37 MG/DL CALC LDL CHOL (test code = 2237) 87 MG/DL RISK RATIO LDL/HDL (test code = 2.35 RATIO 2238) CBC W/AUTO [id number] 00:00:00 Test Item Value Reference Range Interpretation Comments WBC (test code = 1001) 6.8 K/UL RBC (test code = 1002) 3.99 M/UL HEMOGLOBIN (test code = 1003) 12.4 G/DL HEMATOCRIT (test code = 1004) 35.3 % MCV (test code = 1005) 88.5 fL MCH (test code = 1006) 31.1 PG MCHC (test code = 1007) 35.1 G/DL RDW (test code = 1038) 13.4 % NEUTROPHILS (test code = 1008) 60.2 % LYMPHOCYTES (test code = 1010) 28.4 % MONOCYTES (test code = 1011) 8.0 % EOSINOPHILS (test code = 1012) 2.4 % BASOPHILS (test code = 1013) 1.0 % PLATELET COUNT (test code = 1015) 217 K/UL CBC W/AUTO [id number] 00:00:00 Test Item Value Reference Range Interpretation Comments WBC (test code = 1001) 6.8 K/UL RBC (test code = 1002) 3.99 M/UL HEMOGLOBIN (test code = 1003) 12.4 G/DL HEMATOCRIT (test code = 1004) 35.3 % MCV (test code = 1005) 88.5 fL MCH (test code = 1006) 31.1 PG MCHC (test code = 1007) 35.1 G/DL RDW (test code = 1038) 13.4 % NEUTROPHILS (test code = 1008) 60.2 % LYMPHOCYTES (test code = 1010) 28.4 % MONOCYTES (test code = 1011) 8.0 % EOSINOPHILS (test code = 1012) 2.4 % BASOPHILS (test code = 1013) 1.0 % PLATELET COUNT (test code = 1015) 217 K/UL HEMOGLOBIN [id number] 00:00:00 Test Item Value Reference Range Interpretation Comments HEMOGLOBIN A1c (test code = 85511) 4.8 % HEMOGLOBIN [id number] 00:00:00 Test Item Value Reference Range Interpretation Comments HEMOGLOBIN A1c (test code = 31378) 4.8 % [id number] 00:00:00 Test Item Value Reference Range Interpretation Comments TSH, THIRD GENERATION (test code 1.910 UIU/ML = 2821) [id number] 00:00:00 Test Item Value Reference Range Interpretation Comments TSH, THIRD GENERATION (test code 1.910 UIU/ML = 2821) COMPREHENSIVE METABOLIC [id number] 00:00:00 Test Item Value Reference Range Interpretation Comments GLUCOSE (test code = 2217) 112 MG/DL BUN (test code = 2208) 10 MG/DL CREATININE (test code = 2214) 0.81 MG/DL eGFR AMER. (test code 100 ML/MIN/1.73 = 01287) eGFR NON- AMER. (test 86 ML/MIN/1.73 code = 49192) CALC BUN/CREAT (test code = 12 RATIO 2235) SODIUM (test code = 2231) 142 MEQ/L POTASSIUM (test code = 2228) 3.8 MEQ/L CHLORIDE (test code = 2215) 103 MEQ/L CARBON DIOXIDE (test code = 27 MEQ/L 2205) CALCIUM (test code = 2209) 8.9 MG/DL PROTEIN, TOTAL (test code = 7.2 G/DL 2228) ALBUMIN (test code = 2201) 4.4 G/DL CALC GLOBULIN (test code = 2.8 G/DL 0) CALC A/G RATIO (test code = 1.6 RATIO 2234) BILIRUBIN, TOTAL (test code = 0.4 MG/DL 2206) ALKALINE PHOSPHATASE (test 76 U/L code = 2204) AST (test code = 2218) 20 U/L ALT (test code = 2219) 25 U/L LIPID [id number] 00:00:00 Test Item Value Reference Range Interpretation Comments CHOLESTEROL (test code = 2210) 149 MG/DL TRIGLYCERIDES (test code = 2232) 126 MG/DL HDL CHOLESTEROL (test code = 2220) 37 MG/DL CALC LDL CHOL (test code = 2237) 87 MG/DL RISK RATIO LDL/HDL (test code = 2.35 RATIO 2238) CBC W/AUTO [id number] 00:00:00 Test Item Value Reference Range Interpretation Comments WBC (test code = 1001) 6.8 K/UL RBC (test code = 1002) 3.99 M/UL HEMOGLOBIN (test code = 1003) 12.4 G/DL HEMATOCRIT (test code = 1004) 35.3 % MCV (test code = 1005) 88.5 fL MCH (test code = 1006) 31.1 PG MCHC (test code = 1007) 35.1 G/DL RDW (test code = 1038) 13.4 % NEUTROPHILS (test code = 1008) 60.2 % LYMPHOCYTES (test code = 1010) 28.4 % MONOCYTES (test code = 1011) 8.0 % EOSINOPHILS (test code = 1012) 2.4 % BASOPHILS (test code = 1013) 1.0 % PLATELET COUNT (test code = 1015) 217 K/UL CBC W/AUTO [id number] 00:00:00 Test Item Value Reference Range Interpretation Comments WBC (test code = 1001) 6.8 K/UL RBC (test code = 1002) 3.99 M/UL HEMOGLOBIN (test code = 1003) 12.4 G/DL HEMATOCRIT (test code = 1004) 35.3 % MCV (test code = 1005) 88.5 fL MCH (test code = 1006) 31.1 PG MCHC (test code = 1007) 35.1 G/DL RDW (test code = 1038) 13.4 % NEUTROPHILS (test code = 1008) 60.2 % LYMPHOCYTES (test code = 1010) 28.4 % MONOCYTES (test code = 1011) 8.0 % EOSINOPHILS (test code = 1012) 2.4 % BASOPHILS (test code = 1013) 1.0 % PLATELET COUNT (test code = 1015) 217 K/UL HEMOGLOBIN [id number] 00:00:00 Test Item Value Reference Range Interpretation Comments HEMOGLOBIN A1c (test code = 95464) 4.8 % HEMOGLOBIN [id number] 00:00:00 Test Item Value Reference Range Interpretation Comments HEMOGLOBIN A1c (test code = 79753) 4.8 % [id number] 00:00:00 Test Item Value Reference Range Interpretation Comments TSH, THIRD GENERATION (test code 1.910 UIU/ML = 2821) [id number] 00:00:00 Test Item Value Reference Range Interpretation Comments TSH, THIRD GENERATION (test code 1.910 UIU/ML = 2821) COMPREHENSIVE METABOLIC [id number] 00:00:00 Test Item Value Reference Range Interpretation Comments GLUCOSE (test code = 2217) 112 MG/DL BUN (test code = 2208) 10 MG/DL CREATININE (test code = 2214) 0.81 MG/DL eGFR AMER. (test code 100 ML/MIN/1.73 = 80580) eGFR NON- AMER. (test 86 ML/MIN/1.73 code = 19685) CALC BUN/CREAT (test code = 12 RATIO 2235) SODIUM (test code = 2231) 142 MEQ/L POTASSIUM (test code = 2228) 3.8 MEQ/L CHLORIDE (test code = 2215) 103 MEQ/L CARBON DIOXIDE (test code = 27 MEQ/L 2205) CALCIUM (test code = 2209) 8.9 MG/DL PROTEIN, TOTAL (test code = 7.2 G/DL 2228) ALBUMIN (test code = 2201) 4.4 G/DL CALC GLOBULIN (test code = 2.8 G/DL 2240) CALC A/G RATIO (test code = 1.6 RATIO 2234) BILIRUBIN, TOTAL (test code = 0.4 MG/DL 2206) ALKALINE PHOSPHATASE (test 76 U/L code = 2204) AST (test code = 2218) 20 U/L ALT (test code = 2219) 25 U/L LIPID [id number] 00:00:00 Test Item Value Reference Range Interpretation Comments CHOLESTEROL (test code = 2210) 149 MG/DL TRIGLYCERIDES (test code = 2232) 126 MG/DL HDL CHOLESTEROL (test code = 2220) 37 MG/DL CALC LDL CHOL (test code = 2237) 87 MG/DL RISK RATIO LDL/HDL (test code = 2.35 RATIO 2238) CBC W/AUTO [id number] 00:00:00 Test Item Value Reference Range Interpretation Comments WBC (test code = 1001) 6.8 K/UL RBC (test code = 1002) 3.99 M/UL HEMOGLOBIN (test code = 1003) 12.4 G/DL HEMATOCRIT (test code = 1004) 35.3 % MCV (test code = 1005) 88.5 fL MCH (test code = 1006) 31.1 PG MCHC (test code = 1007) 35.1 G/DL RDW (test code = 1038) 13.4 % NEUTROPHILS (test code = 1008) 60.2 % LYMPHOCYTES (test code = 1010) 28.4 % MONOCYTES (test code = 1011) 8.0 % EOSINOPHILS (test code = 1012) 2.4 % BASOPHILS (test code = 1013) 1.0 % PLATELET COUNT (test code = 1015) 217 K/UL CBC W/AUTO [id number] 00:00:00 Test Item Value Reference Range Interpretation Comments WBC (test code = 1001) 6.8 K/UL RBC (test code = 1002) 3.99 M/UL HEMOGLOBIN (test code = 1003) 12.4 G/DL HEMATOCRIT (test code = 1004) 35.3 % MCV (test code = 1005) 88.5 fL MCH (test code = 1006) 31.1 PG MCHC (test code = 1007) 35.1 G/DL RDW (test code = 1038) 13.4 % NEUTROPHILS (test code = 1008) 60.2 % LYMPHOCYTES (test code = 1010) 28.4 % MONOCYTES (test code = 1011) 8.0 % EOSINOPHILS (test code = 1012) 2.4 % BASOPHILS (test code = 1013) 1.0 % PLATELET COUNT (test code = 1015) 217 K/UL HEMOGLOBIN [id number] 00:00:00 Test Item Value Reference Range Interpretation Comments HEMOGLOBIN A1c (test code = 75157) 4.8 % HEMOGLOBIN [id number] 00:00:00 Test Item Value Reference Range Interpretation Comments HEMOGLOBIN A1c (test code = 60981) 4.8 % [id number] 00:00:00 Test Item Value Reference Range Interpretation Comments TSH, THIRD GENERATION (test code 1.910 UIU/ML = 2821) [id number] 00:00:00 Test Item Value Reference Range Interpretation Comments TSH, THIRD GENERATION (test code 1.910 UIU/ML = 2821) COMPREHENSIVE METABOLIC [id number] 00:00:00 Test Item Value Reference Range Interpretation Comments GLUCOSE (test code = 2217) 112 MG/DL BUN (test code = 2208) 10 MG/DL CREATININE (test code = 2214) 0.81 MG/DL eGFR AMER. (test code 100 ML/MIN/1.73 = 73592) eGFR NON- AMER. (test 86 ML/MIN/1.73 code = 29418) CALC BUN/CREAT (test code = 12 RATIO 2235) SODIUM (test code = 2231) 142 MEQ/L POTASSIUM (test code = 2228) 3.8 MEQ/L CHLORIDE (test code = 2215) 103 MEQ/L CARBON DIOXIDE (test code = 27 MEQ/L 2205) CALCIUM (test code = 2209) 8.9 MG/DL PROTEIN, TOTAL (test code = 7.2 G/DL 2228) ALBUMIN (test code = 2201) 4.4 G/DL CALC GLOBULIN (test code = 2.8 G/DL 0) CALC A/G RATIO (test code = 1.6 RATIO 4) BILIRUBIN, TOTAL (test code = 0.4 MG/DL 2206) ALKALINE PHOSPHATASE (test 76 U/L code = 2204) AST (test code = 2218) 20 U/L ALT (test code = 2219) 25 U/L COMPREHENSIVE METABOLIC [id number] 00:00:00 Test Item Value Reference Range Interpretation Comments GLUCOSE (test code = 2217) 112 MG/DL BUN (test code = 2208) 10 MG/DL CREATININE (test code = 2214) 0.81 MG/DL eGFR AMER. (test code 100 ML/MIN/1.73 = 86961) eGFR NON- AMER. (test 86 ML/MIN/1.73 code = 90486) CALC BUN/CREAT (test code = 12 RATIO 2235) SODIUM (test code = 2231) 142 MEQ/L POTASSIUM (test code = 2228) 3.8 MEQ/L CHLORIDE (test code = 2215) 103 MEQ/L CARBON DIOXIDE (test code = 27 MEQ/L 220) CALCIUM (test code = 2209) 8.9 MG/DL PROTEIN, TOTAL (test code = 7.2 G/DL 2228) ALBUMIN (test code = 2201) 4.4 G/DL CALC GLOBULIN (test code = 2.8 G/DL 2240) CALC A/G RATIO (test code = 1.6 RATIO 2234) BILIRUBIN, TOTAL (test code = 0.4 MG/DL 2206) ALKALINE PHOSPHATASE (test 76 U/L code = 2204) AST (test code = 2218) 20 U/L ALT (test code = 2219) 25 U/L LIPID [id number] 00:00:00 Test Item Value Reference Range Interpretation Comments CHOLESTEROL (test code = 2210) 149 MG/DL TRIGLYCERIDES (test code = 2232) 126 MG/DL HDL CHOLESTEROL (test code = 2220) 37 MG/DL CALC LDL CHOL (test code = 2237) 87 MG/DL RISK RATIO LDL/HDL (test code = 2.35 RATIO 2238) CBC W/AUTO [id number] 00:00:00 Test Item Value Reference Range Interpretation Comments WBC (test code = 1001) 6.8 K/UL RBC (test code = 1002) 3.99 M/UL HEMOGLOBIN (test code = 1003) 12.4 G/DL HEMATOCRIT (test code = 1004) 35.3 % MCV (test code = 1005) 88.5 fL MCH (test code = 1006) 31.1 PG MCHC (test code = 1007) 35.1 G/DL RDW (test code = 1038) 13.4 % NEUTROPHILS (test code = 1008) 60.2 % LYMPHOCYTES (test code = 1010) 28.4 % MONOCYTES (test code = 1011) 8.0 % EOSINOPHILS (test code = 1012) 2.4 % BASOPHILS (test code = 1013) 1.0 % PLATELET COUNT (test code = 1015) 217 K/UL CBC W/AUTO [id number] 00:00:00 Test Item Value Reference Range Interpretation Comments WBC (test code = 1001) 6.8 K/UL RBC (test code = 1002) 3.99 M/UL HEMOGLOBIN (test code = 1003) 12.4 G/DL HEMATOCRIT (test code = 1004) 35.3 % MCV (test code = 1005) 88.5 fL MCH (test code = 1006) 31.1 PG MCHC (test code = 1007) 35.1 G/DL RDW (test code = 1038) 13.4 % NEUTROPHILS (test code = 1008) 60.2 % LYMPHOCYTES (test code = 1010) 28.4 % MONOCYTES (test code = 1011) 8.0 % EOSINOPHILS (test code = 1012) 2.4 % BASOPHILS (test code = 1013) 1.0 % PLATELET COUNT (test code = 1015) 217 K/UL HEMOGLOBIN [id number] 00:00:00 Test Item Value Reference Range Interpretation Comments HEMOGLOBIN A1c (test code = 93266) 4.8 % HEMOGLOBIN [id number] 00:00:00 Test Item Value Reference Range Interpretation Comments HEMOGLOBIN A1c (test code = 49033) 4.8 % [id number] 00:00:00 Test Item Value Reference Range Interpretation Comments TSH, THIRD GENERATION (test code 1.910 UIU/ML = 2821) [id number] 00:00:00 Test Item Value Reference Range Interpretation Comments TSH, THIRD GENERATION (test code 1.910 UIU/ML = 2821) LIPID [id number] 00:00:00 Test Item Value Reference Range Interpretation Comments CHOLESTEROL (test code = 2210) 149 MG/DL TRIGLYCERIDES (test code = 2232) 126 MG/DL HDL CHOLESTEROL (test code = 2220) 37 MG/DL CALC LDL CHOL (test code = 2237) 87 MG/DL RISK RATIO LDL/HDL (test code = 2.35 RATIO 2238) CBC W/AUTO [id number] 00:00:00 Test Item Value Reference Range Interpretation Comments WBC (test code = 1001) 6.8 K/UL RBC (test code = 1002) 3.99 M/UL HEMOGLOBIN (test code = 1003) 12.4 G/DL HEMATOCRIT (test code = 1004) 35.3 % MCV (test code = 1005) 88.5 fL MCH (test code = 1006) 31.1 PG MCHC (test code = 1007) 35.1 G/DL RDW (test code = 1038) 13.4 % NEUTROPHILS (test code = 1008) 60.2 % LYMPHOCYTES (test code = 1010) 28.4 % MONOCYTES (test code = 1011) 8.0 % EOSINOPHILS (test code = 1012) 2.4 % BASOPHILS (test code = 1013) 1.0 % PLATELET COUNT (test code = 1015) 217 K/UL CBC W/AUTO [id number] 00:00:00 Test Item Value Reference Range Interpretation Comments WBC (test code = 1001) 6.8 K/UL RBC (test code = 1002) 3.99 M/UL HEMOGLOBIN (test code = 1003) 12.4 G/DL HEMATOCRIT (test code = 1004) 35.3 % MCV (test code = 1005) 88.5 fL MCH (test code = 1006) 31.1 PG MCHC (test code = 1007) 35.1 G/DL RDW (test code = 1038) 13.4 % NEUTROPHILS (test code = 1008) 60.2 % LYMPHOCYTES (test code = 1010) 28.4 % MONOCYTES (test code = 1011) 8.0 % EOSINOPHILS (test code = 1012) 2.4 % BASOPHILS (test code = 1013) 1.0 % PLATELET COUNT (test code = 1015) 217 K/UL HEMOGLOBIN [id number] 00:00:00 Test Item Value Reference Range Interpretation Comments HEMOGLOBIN A1c (test code = 41952) 4.8 % COMPREHENSIVE METABOLIC [id number] 00:00:00 Test Item Value Reference Range Interpretation Comments GLUCOSE (test code = 2217) 112 MG/DL BUN (test code = 2208) 10 MG/DL CREATININE (test code = 2214) 0.81 MG/DL eGFR AMER. (test code 100 ML/MIN/1.73 = 73536) eGFR NON- AMER. (test 86 ML/MIN/1.73 code = 94947) CALC BUN/CREAT (test code = 12 RATIO 2235) SODIUM (test code = 2231) 142 MEQ/L POTASSIUM (test code = 2228) 3.8 MEQ/L CHLORIDE (test code = 2215) 103 MEQ/L CARBON DIOXIDE (test code = 27 MEQ/L 2205) CALCIUM (test code = 2209) 8.9 MG/DL PROTEIN, TOTAL (test code = 7.2 G/DL 2228) ALBUMIN (test code = 2201) 4.4 G/DL CALC GLOBULIN (test code = 2.8 G/DL 2239) CALC A/G RATIO (test code = 1.6 RATIO 2234) BILIRUBIN, TOTAL (test code = 0.4 MG/DL 2206) ALKALINE PHOSPHATASE (test 76 U/L code = 2204) AST (test code = 2218) 20 U/L ALT (test code = 2219) 25 U/L COMPREHENSIVE METABOLIC [id number] 00:00:00 Test Item Value Reference Range Interpretation Comments GLUCOSE (test code = 2217) 112 MG/DL BUN (test code = 2208) 10 MG/DL CREATININE (test code = 2214) 0.81 MG/DL eGFR AMER. (test code 100 ML/MIN/1.73 = 79853) eGFR NON- AMER. (test 86 ML/MIN/1.73 code = 71181) CALC BUN/CREAT (test code = 12 RATIO 2235) SODIUM (test code = 2231) 142 MEQ/L POTASSIUM (test code = 2228) 3.8 MEQ/L CHLORIDE (test code = 2215) 103 MEQ/L CARBON DIOXIDE (test code = 27 MEQ/L 2205) CALCIUM (test code = 2209) 8.9 MG/DL PROTEIN, TOTAL (test code = 7.2 G/DL 2228) ALBUMIN (test code = 2201) 4.4 G/DL CALC GLOBULIN (test code = 2.8 G/DL 2240) CALC A/G RATIO (test code = 1.6 RATIO 2234) BILIRUBIN, TOTAL (test code = 0.4 MG/DL 2206) ALKALINE PHOSPHATASE (test 76 U/L code = 2204) AST (test code = 2218) 20 U/L ALT (test code = 2219) 25 U/L HEMOGLOBIN [id number] 00:00:00 Test Item Value Reference Range Interpretation Comments HEMOGLOBIN A1c (test code = 08685) 4.8 % LIPID [id number] 00:00:00 Test Item Value Reference Range Interpretation Comments CHOLESTEROL (test code = 2210) 149 MG/DL TRIGLYCERIDES (test code = 2232) 126 MG/DL HDL CHOLESTEROL (test code = 2220) 37 MG/DL CALC LDL CHOL (test code = 2237) 87 MG/DL RISK RATIO LDL/HDL (test code = 2.35 RATIO 2238) [id number] 00:00:00 Test Item Value Reference Range Interpretation Comments TSH, THIRD GENERATION (test code 1.910 UIU/ML = 2821) LIPID [id number] 00:00:00 Test Item Value Reference Range Interpretation Comments CHOLESTEROL (test code = 2210) 149 MG/DL TRIGLYCERIDES (test code = 2232) 126 MG/DL HDL CHOLESTEROL (test code = 2220) 37 MG/DL CALC LDL CHOL (test code = 2237) 87 MG/DL RISK RATIO LDL/HDL (test code = 2.35 RATIO 2238) CBC W/AUTO [id number] 00:00:00 Test Item Value Reference Range Interpretation Comments WBC (test code = 1001) 6.8 K/UL RBC (test code = 1002) 3.99 M/UL HEMOGLOBIN (test code = 1003) 12.4 G/DL HEMATOCRIT (test code = 1004) 35.3 % MCV (test code = 1005) 88.5 fL MCH (test code = 1006) 31.1 PG MCHC (test code = 1007) 35.1 G/DL RDW (test code = 1038) 13.4 % NEUTROPHILS (test code = 1008) 60.2 % LYMPHOCYTES (test code = 1010) 28.4 % MONOCYTES (test code = 1011) 8.0 % EOSINOPHILS (test code = 1012) 2.4 % BASOPHILS (test code = 1013) 1.0 % PLATELET COUNT (test code = 1015) 217 K/UL
[2022-03-22] MEDS ORDERED: IBUPROFEN 400 MG TAB ONE (22:57)
--- NOTE | 2022-03-22 23:02 | RAD REPORT ---
EXAM DESCRIPTION: RAD - Hip Left 2 View - 03/22/2022 10:52 pm CLINICAL HISTORY: PAIN COMPARISON: <Comparisons> FINDINGS/IMPRESSION: No acute fracture. No malalignment. Mild to moderate left acetabular degenerati ve changes.
--- NOTE | 2022-03-22 23:03 | RAD REPORT ---
EXAM DESCRIPTION: RAD - Knee Left 2 View - 03/22/2022 10:52 pm CLINICAL HISTORY: PAIN COMPARISON: No comparisonsNo comparisons FINDINGS/IMPRESSION: No acute fracture. No malalignment. No significant focal degenerative changes.
--- NOTE | 2022-03-22 23:07 | EDPHYS ---
Physician Documentation [facility] Name: Ngozi Silverman Age: 51 yrs Sex: Female : 1970 Arrival Date: 03/22/2022 Time: 21:48 Bed 14 Private MD: Johnny Cabrera HPI: 03/22 22:57 This 51 yrs old Female presents to ER via Ambulatory with complaints of Eye dion Pain, Fall Injury, Eye Injury. 22:57 The patient is experiencing pain, The patient sustained None. to the right eye. Onset: dion The symptoms/episode began/occurred 3 day(s) ago. Duration: the symptoms are continuous. Aggravated by nothing. Alleviated by nothing. Associated signs and symptoms: Pertinent positives: None. Pertinent negatives: None. Patient does not utilize any form of vision correction. Severity of symptoms: At their worst the symptoms were mild. 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 Last tetanus immunization: unknown. - Social history:: Smoking status: Patient denies any tobacco usage or history of. ROS: 22:58 Constitutional: Negative for fever, chills, and weight loss, ENT: Negative for injury, dion pain, and discharge, Neck: Negative for injury, pain, and swelling, Cardiovascular: Negative for chest pain, palpitations, and edema, Respiratory: Negative for shortness of breath, cough, wheezing, and pleuritic chest pain, Abdomen/GI: Negative for abdominal pain, nausea, vomiting, diarrhea, and constipation, Back: Negative for injury and pain, : Negative for injury, bleeding, discharge, and swelling, Skin: Negative for injury, rash, and discoloration, Neuro: Negative for headache, weakness, numbness, tingling, and seizure, Psych: Negative for depression, anxiety, suicide ideation, homicidal ideation, and hallucinations, Allergy/Immunology: Negative for hives, rash, and allergies, Endocrine: Negative for neck swelling, polydipsia, polyuria, polyphagia, and marked weight changes, Hematologic/Lymphatic: Negative for swollen nodes, abnormal bleeding, and unusual bruising. 22:58 Eyes: Positive for of the outer aspect of conjuctiva of right eye, subconjunctival hemorrhage. Exam: 22:58 Constitutional: This is a well developed, well nourished patient who is awake, alert, dion and in no acute distress. Head/Face: Normocephalic, atraumatic. ENT: Nares patent. No nasal discharge, no septal abnormalities noted. Tympanic membranes are normal and external auditory canals are clear. Oropharynx with no redness, swelling, or masses, exudates, or evidence of obstruction, uvula midline. Mucous membranes moist. Neck: Trachea midline, no thyromegaly or masses palpated, and no cervical lymphadenopathy. Supple, full range of motion without nuchal rigidity, or vertebral point tenderness. No Meningismus. Chest/axilla: Normal chest wall appearance and motion. Nontender with no deformity. No lesions are appreciated. Cardiovascular: Regular rate and rhythm with a normal S1 and S2. No gallops, murmurs, or rubs. Normal PMI, no JVD. No pulse deficits. Respiratory: Lungs have equal breath sounds bilaterally, clear to auscultation and percussion. No rales, rhonchi or wheezes noted. No increased work of breathing, no retractions or nasal flaring. Abdomen/GI: Soft, non-tender, with normal bowel sounds. No distension or tympany. No guarding or rebound. No evidence of tenderness throughout. Back: No spinal tenderness. No costovertebral tenderness. Full range of motion. Skin: Warm, dry with normal turgor. Normal color with no rashes, no lesions, and no evidence of cellulitis. Neuro: Awake and alert, GCS 15, oriented to person, place, time, and situation. Cranial nerves II-XII grossly intact. Motor strength 5/5 in all extremities. Sensory grossly intact. Cerebellar exam normal. Normal gait. Psych: Awake, alert, with orientation to person, place and time. Behavior, mood, and affect are within normal limits. 22:58 Eyes: Periorbital structures: appear normal, no acute changes, Pupils: no acute changes, equal, round, and reactive to light and accomodation, Extraocular movements: intact throughout, Conjunctiva: normal, no acute changes, no chemosis, no excoriation, no exudate, no injection, no abnormal tearing, subconjunctival hemorrhage(s), seen in the right eye. Vital Signs: 21:55 BP 131 / 86; Pulse 97; Resp 20; Temp 98; Pulse Ox 100% ; Weight 120.2 kg; Height 5 ft. kb3 3 in. (160.02 cm); Pain 2/10; 21:55 Body Mass Index 46.94 (120.20 kg, 160.02 cm) kb3 Visual Acuity: 22:00 Left Eye Visual acuity 20/20, Pupil size 3 mm, ; Right Eye Visual acuity 20/20, Pupil ke1 size 3 mm, ; Both Eyes Visual acuity 20/20; Without Lenses; MDM: 22:11 Patient medically screened. dion 23:00 Differential diagnosis: Acute iritis of right eye. closed fracture, contusion, dion abrasion, tendonitis. Data reviewed: vital signs, nurses notes, EMS record, radiologic studies, plain films. Data interpreted: veteran appeals reviewer: not applicable for this patient encounter. rate is 98 beats/min, rhythm is regular, Pulse oximetry: on room air is 100 %. Test interpretation: by ED physician or midlevel provider: plain radiologic studies. Counseling: I had a detailed discussion with the patient and/or guardian regarding: the historical points, exam findings, and any diagnostic results supporting the discharge/admit diagnosis, lab results, radiology results, the need for outpatient follow up, for definitive care, an opthalmologist, a family practitioner, a orthopedic surgeon. 03/22 22:28 Order name: XRAY Knee LEFT 2 view ke1 03/22 22:28 Order name: XRAY Hip LEFT 2 view ke1 03/22 23:03 Order name: RAD; Complete Time: 23:04 EDMS 03/22 23:04 Order name: RAD EDIA Administered Medications: 23:02 Drug: Motrin (ibuprofen) 800 mg Route: PO; ke1 23:15 Follow up: Response: Medication administered at discharge. ke1 Disposition Summary: 03/22/22 23:06 Discharge Ordered Location: Home dion Problem: new dion Symptoms: have improved dion Condition: Stable dion Diagnosis - Fall on same level, unspecified dion - Contusion of left knee dion - Pain in left hip - degenerative changes dion Followup: dion - With: Private Physician - When: 2 - 3 days - Reason: Recheck today's complaints, Continuance of care, Re-evaluation by your physician Followup: dion - With: Nishant Durham MD - When: 2 - 3 days - Reason: Recheck today's complaints, Re-evaluation by your physician Followup: dion - With: Nathaniel Douglass MD - When: 2 - 3 days - Reason: Recheck today's complaints, Re-evaluation by your physician Discharge Instructions: - Discharge Summary Sheet dion - Joint Pain dion - Arthritis dion - Fall Prevention in the Home, Adult dion - Musculoskeletal Pain dion - Subconjunctival Hemorrhage dion - Hip Pain dion - Arthritis, [id number] dion Forms: - Medication Reconciliation Form dion - Thank You Letter dion - Antibiotic Education dion - Prescription Opioid Use [facility] Prescriptions: - Ibuprofen 600 mg Oral Tablet - take 1 tablet by ORAL route every 6 hours As needed take with food; 30 tablet; [facility] Refills: 0, Product Selection Permitted Signatures: Dispatcher [employer] Johnny Vergara MD MD cha Ebrottie, Kouassi RN RN ke1 Dior Lala RN RN kb3 Corrections: (The following items were deleted from the chart) 22:01 21:58 Allergies: steroids; kb3 kb3 22:01 21:58 Home Meds: carvedilol 6.25 mg Oral tab 1 tab 2 times per day; kb3 kb3 22:01 21:58 Home Meds: gabapentin 100 mg Oral tab three times a day; kb3 kb3
--- NOTE | 2022-03-22 23:07 | ER ---
Nurse's Notes [facility] Name: Ngozi Silverman Age: 51 yrs Sex: Female : 1970 Arrival Date: 03/22/2022 Time: 21:48 Bed 14 Private MD: Diagnosis: Fall on same level, unspecified;Contusion of left knee;Pain in left hip-degenerative changes Presentation: 03/22 21:55 Chief complaint: Patient states: Patient reports she fell and struck her face on the [facility] on Friday. Reports feeling pressure in her right eye this week. Saw her PCP today and was instructed to come to Ed for further evaluation. Coronavirus screen: Vaccine status: Patient reports being unvaccinated. Client denies travel out of the [place] in the last 14 days. Ebola Screen: Patient negative for fever greater than or equal to 101.5 degrees Fahrenheit, and additional compatible Ebola Virus Disease symptoms Patient denies exposure to infectious person. Patient denies travel to an Ebola-affected area in the 21 days before illness onset. No symptoms or risks identified at this time. Mechanism of Injury: Fall from standing position. The patient denies any loss of vision. Initial Sepsis Screen: Does the patient meet any 2 criteria? No. Patient's initial sepsis screen is negative. Does the patient have a suspected source of infection? No. Patient's initial sepsis screen is negative. Risk Assessment: Do you want to hurt yourself or someone else? Patient reports no desire to harm self or others. Onset of symptoms was March 18, 2022. 21:55 Method Of Arrival: Ambulatory [facility] 21:55 Acuity: YOLI 4 3 Triage Assessment: 21:58 General: Appears in no apparent distress. Behavior is calm, cooperative. Pain: 3 Complains of pain in right eye Pain does not radiate. Pain currently is 2 out of 10 on a pain scale. EENT: Sclera/Cornea are reddened in outer aspect of conjuctiva of right eye. 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 Last tetanus immunization: unknown. - Social history:: Smoking status: Patient denies any tobacco usage or history of. Screenin:07 Abuse screen: Denies threats or abuse. Nutritional screening: No deficits noted. ke1 Tuberculosis screening: No symptoms or risk factors identified. Fall Risk Fall in past 12 months (25 points). No secondary diagnosis (0 pts). No IV (0 pts). Ambulatory Aid- None/Bed Rest/Nurse Assist (0 pts). Gait- Normal/Bed Rest/Wheelchair (0 pts) Mental Status- Oriented to own ability (0 pts). Total Garcia Fall Scale indicates Low Risk Score (25-44 pts). Fall prevention measures have been instituted. Side Rails Up X 2 Frequent Obs/Assesments occuring As available Patient and Family Educated on Fall Prevention Program and strategies. Assessment: 22:00 EENT: Eyes Sclera/Cornea are reddened in outer aspect of conjuctiva of right eye. ke1 23:01 Pain: Complains of pain in tight hip and knee Pain currently is 3 out of 10 on a pain ke1 scale. at worst was 6 out of 10 on a pain scale. level that patient reports is acceptable is 3 out of 10 on a pain scale. Vital Signs: 21:55 BP 131 / 86; Pulse 97; Resp 20; Temp 98; Pulse Ox 100% ; Weight 120.2 kg; Height 5 ft. kb3 3 in. (160.02 cm); Pain 2/10; 21:55 Body Mass Index 46.94 (120.20 kg, 160.02 cm) kb3 Visual Acuity: 22:00 Left Eye Visual acuity 20/20, Pupil size 3 mm, ; Right Eye Visual acuity 20/20, Pupil ke1 size 3 mm, ; Both Eyes Visual acuity 20/20; Without Lenses; ED Course: 21:48 Patient arrived in ED. bp1 21:58 Triage completed. kb3 21:58 Arm band placed on right wrist. kb3 22:03 Soy Brody, RN is Primary Nurse. ke1 22:08 Bed in low position. Call light in reach. ke1 22:11 Johnny Riec MD is Attending Physician. [facility] 23:06 Nishant Durham MD is Referral Physician. [facility] 23:06 Nathaniel Douglass MD is Referral Physician. [facility] 23:13 No provider procedures requiring assistance completed. Patient did not have IV access ke1 during this emergency room visit. Administered Medications: 23:02 Drug: Motrin (ibuprofen) 800 mg Route: PO; ke1 23:15 Follow up: Response: Medication administered at discharge. ke1 Medication: 23:15 VIS not applicable for this client. ke1 Outcome: 23:06 Discharge ordered by MD. [facility] 23:14 Discharged to home ke1 23:14 Condition: good 23:14 Discharge instructions given to patient. 23:15 Patient left the ED. ke1 Signatures: Johnny Rice MD MD cha Paniauga, Brittany bp1 Ebrottie, Kouassi RN ANASTACIA ke1 Dior Lala RN RN kb3 Corrections: (The following items were deleted from the chart) 22:01 21:58 Allergies: steroids; kb3 kb3 22:01 21:58 Home Meds: carvedilol 6.25 mg Oral tab 1 tab 2 times per day; kb3 kb3 22:01 21:58 Home Meds: gabapentin 100 mg Oral tab three times a day; kb3 kb3 22:08 22:07 Fall Risk Fall in past 12 months (25 points). No secondary diagnosis (0 pts). No ke1 IV (0 pts). Ambulatory Aid- None/Bed Rest/Nurse Assist (0 pts). Gait- Normal/Bed Rest/Wheelchair (0 pts) Mental Status- Oriented to own ability (0 pts). Total Garcia Fall Scale indicates Low Risk Score (25-44 pts). ke1
[2022-03-23 11:21] VITALS: BP 131/86; TEMP 98; O2SAT 100
== END 2022-03-22 23:15 | disposition home or self-care (01) ==
LOC: ER 21:44
DX: S80.02XA Contusion of left knee, initial encounter (principal); M25.552 Pain in left hip; H11.31 Conjunctival hemorrhage, right eye; W18.30XA Fall on same level, unspecified, initial encounter; I10 Essential (primary) hypertension
CPT/HCPCS: 99283